=== PATIENT | male | born 1930 | race Caucasian/White ===

== ENCOUNTER 2016-12-06 19:42 | Inpatient (IN) | payer MEDICARE, OTHER ==
[~2016-12-06] VITALS: Ht 188 cm; Wt 98.2 kg
[~2016-12-06 19:42] MED LIST: ATENOLOL50 MG PO; ATROPINE 0.01%-10 ML OS; AZATHIOPRINE50 MG PO; CALCITRIOL0.5 MCG PO; CEPHALEXIN500 MG PO; CIPROFLOXACIN250 MG PO; CYANOCOBAL1000 MCG/M PO; DOXYCYCLINE HY100 MG PO; FLOMAX0.4 MG PO; FLONASE2 SPRAY; GABAPENTIN300 MG PO; GLIPIZIDE XL5 MG PO; GLIPIZIDE5 MG PO; HYDROCHLOROTHIA25 MG PO; ICAPS MV TABLE1 EACH PO; IMURAN50 MG PO; KEFLEX500 MG PO; LEVOFLOXACIN500 MG PO; LEVOTHROID125 MCG PO; LEVOXYL125 MCG PO; LISINOPRIL10 MG PO; LISINOPRIL20 MG PO; MECLIZINE HCL25 MG PO; MESTINON60 MG PO; METFORMIN HCL500 MG PO; PREDNISONE10 MG PO; PROSCAR5 MG PO; PROVENTIL HFA6.7 GM INH; RANITIDINE15 MG/1 ML PO; SIMVASTATIN40 MG PO; SIMVASTATIN80 MG PO; TRAVATAN 0.0042.5 ML OP; VITAMIN B-12250 MCG PO; VITAMIN D1000 UNIT PO; WARFARIN SODIUM5 MG PO
--- NOTE | 2016-12-06 22:30 | NUR ---
PT ARRIVED TO DEPARTMENT VIA STRETCHER FROM E.D. WITH AT BEDSIDE. PT TRANSFERRED FROM STRETCHER TO BED WITH TRANSFER SHEET. PT TOLERATED TRANSFER WELL. PT ALERT AND ORIENTED AT THIS TIME, ANSWERING QUESTIONS APPROPRIATELY, COOPERATIVE AND PLEASANT. HISTORY AND ASSESSMENTS DONE, TO HELP WITH PT MEDICAL HX. PT HAS GLAUCOMA, BLIND IN LEFT EYE, PUPIL DILATED. PT HAS COLOSTOMY, BURPED, MINIMAL SOFT BROWN STOOL. PT HAS DECUB TO COCCYX, ALLEVYN DRESSING INTACT, NO DRAINAGE NOTED. PT [place], HEARING AIDS AT HOME PER . PT HAS UPPER AND LOWER DENTURES, ALSO AT HOME PER . PT EATING BOXED LUNCH, TOLERATING PO WELL. IV FLUIDS INITIATED, IV SITE PATENT AND INTACT, INFUSING WITHOUT DIFFICULTY. 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 PT DENIES ANY N/V, SOB AT THIS TIME. PT C/O CHRONIC BILATERAL SHOULDER PAIN, STATES HE HAS BILATERAL TORN ROTATOR CUFF AND IS BEING FOLLOWED BY DR JOSE. 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 EDUCATED PT ON GETTING OUT BED, USING CALL LIGHT APPROPRIATELY, PT VERBALIZED UNDERSTANDING. CALL LIGHT WITHIN REACH. PT DENIES ANY FURTHER NEEDS AT THIS TIME.
--- NOTE | 2016-12-07 00:05 | NUR ---
PT SLEEPING, RR EVEN AND UNLABORED. PT APPEARS COMFORTABLE AT THIS TIME. CALL LIGHT WITHIN REACH.
--- NOTE | 2016-12-07 03:15 | NUR ---
PT ATTEMPTING TO VOID IN URINAL, UNSUCCESSFUL. PT STATES "I SOMETIMES HAVE A HARD TIME, I FEEL LIKE I REALLY NEED TO GO AND THEN NOTHING HAPPENS". PT STATES DIFFICULTY VOIDING IS NOT A NEW ISSUE. WILL CONTINUE TO MONITOR AND ENCOURAGE VOIDING. PT USING CALL LIGHT APPROPRIATELY. IV FLUIDS INFUSING WITHOUT DIFFICULTY. CALL LIGHT WITHIN REACH. PT DENIES ANY FURTHER NEEDS AT THIS TIME.
--- NOTE | 2016-12-07 06:04 | NUR ---
PT ATTEMPTED TO VOID IN URINAL, MISSED, INCONTINENT. CHANGED ATTENDS AND LINENS. PT C/O SHOULDER PAIN, TYLENOL GIVEN. CHANGED COLOSTOMY BAG. CALL LIGHT WITHIN REACH. PT DENIES ANY FURTHER NEEDS AT THIS TIME.
--- NOTE | 2016-12-07 07:42 | EKG ---
[facility] [address] [place], [place] [address] Signed Normal sinus rhythm Left axis deviation Abnormal ECG No previous ECGs available Confirmed by VERONA RIVERA MD ([id number]) on 12/07/2016 7:41:55 AM Electronically Signed By: VERONA RIVERA MD 12/07/16 0742 PATIENT NAME: FRANK ORTEZ SR Electrocardiogram DATE OF : 34 PHYSICIAN: VERONA RIVERA MD REPORT #: [id number] REPORT IS CONFIDENTIAL AND NOT TO BE RELEASED WITHOUT AUTHORIZATION
--- NOTE | 2016-12-07 08:15 | NUR ---
PT RESTING IN BED WITH EYES CLOSED UPON ENTERING ROOM, AWOKE EASILY TO VOICE. PT ALERT AND ORIENTED BUT FORGETFUL, [place]. PT REPOSITIONED IN BED, BREAKFAST TRAY SET UP, PT EATING INDEPENDENTLY. AT BEDSIDE. PT REPORTING PAIN OF SHOULDERS BILATERALLY, CHRONIC PAIN D/T ROTATOR CUFF TEAR. PAIN INCREASED WITH MOVEMENT. CALL LIGHT WITHIN REACH.
--- NOTE | 2016-12-07 09:20 | NUR ---
REASSESSED MENTATION. PT ORIENTED TO SELF, YEAR, AND SITUATION. UNABLE TO STATE DATE, OR PLACE. STATES THIS IS NOT NORMAL FOR PT.
--- NOTE | 2016-12-07 12:00 | NUR ---
PT SITTING UP IN BED EATING LUNCH INDEPENDENTLY. MENTATION REMAINS UNCHANGED WITH LAST ASSESSMENT. REMAINS ORIENTED TO SELF, FAMILY, AND SITUATION. AT BEDSIDE.
--- NOTE | 2016-12-07 14:41 | NUR ---
PT UP TO RECLINER WITH P.T., BRIAN WELL. MEDICATED WITH PO TYLENOL FOR CHRONIC SHOULDER PAIN. AT BEDSIDE. CALL LIGHT WITHIN REACH.
--- NOTE | 2016-12-07 15:35 | NUR ---
PT STATED THAT PT ATTEMPTED TO GET OUT OF CHAIR INDEPENDENTLY. PT STATES THAT HE WANTS TO GO BACK TO BED. PT 2 PERSON ASSIST, ABLE TO STAND AND PIVOT TRANSFER TO BED. PT PLACED IN POSITION OF COMFORT, DENIES FURTHER NEEDS OR CONCERNS. CALL LIGHT WITHIN REACH. AT BEDSIDE, BED ALARM ON.
--- NOTE | 2016-12-07 15:57 | NUR ---
MED REC COMPLETE WITH PATIENT'S WHO HAS A CURRENT MEDICATION LIST. PATIENT WAS RECENTLY TAKEN OFF SEVERAL MEDICATIONS INCLUIDNG ATENOLOL AND HCTZ.
--- NOTE | 2016-12-07 17:40 | NUR ---
shaved patients face. jerson care done. patient sittin straight up in bed eating dinner with family by his side. no other needs at this time.
--- NOTE | 2016-12-07 17:45 | NUR ---
PT SITTING UP IN BED AKAKE. ATE DINNER INDEPENDENTLY. DENIES NEEDS OR CONCERNS. BED ALARM ON.
--- NOTE | 2016-12-07 19:10 | NUR ---
BEDSIDE SHIFT REPORT RECEIVED FROM ROBERTO ALARCON. PT IS RESTING IN BED WITH EYES CLOSED. RA. IV INFUSING WNL. CALL LIGHT IS WITHIN REACH. DENIES NEEDS AT THIS TIME.
--- NOTE | 2016-12-07 21:20 | NUR ---
ASSESSMENT COMPLETED. PT IS ALERT AND ORIENTED X4 AT THIS TIME. REPORTS 7/10 PAIN IN BILATERAL SHOULDERS, 2 TABS TYLENOL PROVIDED. DENIES NAUSEA. LUNGS CLEAR, RA. HR REGULAR. BOWEL TONES ACTIVE. COLOSTOMY TO LLQ, APPLIANCE INTACT, DRAINING SOFT BROWN STOOL. PT HAD URINAL IN PLACE, INCONTINENT. ATTENDS CHANGED, BARRIER CREAM APPLIED TO GROIN. REDDENED AREA TO COCCYX, OPEN TO AIR. IV PATENT, INFSUING WNL. PT IS BLIND IN LEFT EYE, LEFT PUPILS IS PERMANENTLY DILATED/NON-REACTIVE. LEFT ARM IS RESTRICTED D/T FISTULA. DENIES NEEDS AT THIS TIME, CALL LIGHT IS WITHIN REACH.
--- NOTE | 2016-12-08 00:46 | NUR ---
PT INCONTINENT OF URINE, NEW ATTENDS IN PLACE, DANIELLE-CARE PROVIDED. PT DENIES FURTHER REQUESTS.
--- NOTE | 2016-12-08 02:30 | NUR ---
PT CALLED AND REQUESTED TO USE URINAL, HAD BEEN INCONTINENT OF URINE. ASSESSMENT COMPLETED. PT DENIES PAIN AND NAUSEA AT THIS TIME. NO CHANGES FROM PREVIOUS ASSESSMENT. NEW ATTENDS IN PLACE. NEW IVF STARTED, IV PATENT. ASSESSED FISTULA, AUSCULTATED BRUIT AND PALPATED THRILL, WNL. PT DENIES FURTHER REQUESTS AT THIS TIME, CALL LIGHT IS WITHIN REACH.
--- NOTE | 2016-12-08 04:27 | NUR ---
PT CURRRENTLY SLEEPING, NO APPARENT DISTRESS. RESPIRATIONS EVEN AND UNLABORED. WILL CONTINUE TO MONITOR.
--- NOTE | 2016-12-08 05:06 | NUR ---
PT SLEPT ON AND OFF. ORIENTED WHEN AWAKE. TYLENOL GIVEN ONCE FOR CHRONIC SHOULDER PAIN. NO NAUSEA. LUNGS CLEAR, RA. HR REGULAR. BOWEL TONES ACITVE, COLOSTOMY DRAINING SOFT BROWN STOOL, APPLIANCE INTACT. INCONTINENT OF URINE, ATTENDS IN PLACE. PRESSURE ULCER TO COCCYX, OPEN TO AIR. PT FREQUENTLY REPOSITIONS SELF IN BED. LEFT ARM RESTRICTED: FISTULA. ACCUCHECKS AND SLIDING SCALE. 1-2PA, PIVOT TRANSFER, WHEELCHAIR BOUND AT HOME.
--- NOTE | 2016-12-08 05:53 | NUR ---
PT UP TO CHAIR WITH 2-PA AND PIVOT TRANSER. NEW ATTENDS AND CLEAN LINENS PROVIDED. CALL LIGHT IS WITHIN REACH. CHAIR ALARM IS ON FOR SAFETY.
--- NOTE | 2016-12-08 09:49 | NUR ---
PT UP IN CHAIR AWAKE AT SHIFT CHANGE, NON-PARTICIPATORY BUT FRIENDLY AND APPROPRIATE. PT DENIES NEEDS OR DISCOMFORTS AT THAT TIME, CHAIR ALARM IN PLACE CALL LIGHT IN LAP. PT TOLERATES 100% OF BREAKFAST AND CONTINUES IN CHAIR. UP TO SHOWER THEN RETURNS TO CHAIR, WELL TOLERATED
--- NOTE | 2016-12-08 14:02 | NUR ---
PT ASSISTED TO CHANGE COLOSTOMY BAG, REMAINS UP IN CHAIR, IS PRESENT. PT TOLERATES SHOWER EARLIER IN THE SHIFT THEN RETURNS TO THE CHAIR. HAS A HALF SANDWICH FOR LUNCH THEN AGREES TO LAY DOWN FOR A NAP. PT RESTING SOUNDLY AT THIS TIME
--- NOTE | 2016-12-08 17:28 | NUR ---
PT RESTS IN BED FOR A TIME REPORTS A GOOD NAP. UP TO THE CHAIR FOR EVENING MEAL, IS PRESENT AND EATS WITH HIM. CALL LIGHT IN LAP, CHAIR ALARM IN PLACE
--- NOTE | 2016-12-08 18:29 | NUR ---
Before getting up into the chair me and another blueberry grower helped me change them.
--- NOTE | 2016-12-08 19:46 | NUR ---
RECEIVED REPORT FROM DAY SHIFT RN. PATIENT IS RESTING IN BED WITH EYES CLOSED, RR 17
--- NOTE | 2016-12-08 20:58 | NUR ---
PATIENT ASSESMENT COMPLETED. PATIENTS EVENING MEDICATIONS GIVEN PER ORDER. PATIENT COMPLAINS OF PAIN IN HS SHOULDERS AND RATES IT AT A 3/10. PATIENT GIVEN PRN TYLENOL PER ORDER. PATIENTS BS TAKEN AND RECORDED. PATIENT DID NOT REQUIRE SS INSULIN, BS WNL. PATIENT ALSO RECEIVED A NEW IV, PATIENT TOLERATED IT WELL. PATIENT REPOSITIONED IN BED. PATIENTS BLOOD PRESSURE WAS ALSO OUT OF NORMAL RANGE. PLACED A CALL TO HOSPITALIST. NEW ORDER PLACED BY HOSPITALIST. PATIENT GIVEN BLOOD PRESSSURE MEDICATION PER ORDER. PATIENT DENIES ANY FURTHER NEEDS AT THIS TIME. CALL LIGHT IS WITHIN REACH.
--- NOTE | 2016-12-09 00:07 | NUR ---
PATIENT HAD A BOUT OF INCONTINENCE. PATIENT ASSISTED TO THE RECLINER. PATIENT IS A 2PA W/WALKER. COORDINATION IS DIFFICULT FOR PATIENT. PATIENTS BEDDING CHANGED, ATTEND CHANGED, AND DANIELLE CARE PERFORMED. PATIENT IS NOW BACK IN BED RESTING. PATIENTS COLOSTOMY EMPTIED. PATIENT DENIES ANY FURTHER NEEDS. CALL LIGHT IS WITHIN REACH.
--- NOTE | 2016-12-09 02:16 | NUR ---
PATIENT REPOSITIONED. PATIENT DENIES ANY PAIN OR NEEDS AT THIS TIME. CALL LIGHT IS WITHIN REACH.
--- NOTE | 2016-12-09 03:43 | NUR ---
PATIENT RESTING IN BED WITH EYES CLOSED, RR 16
--- NOTE | 2016-12-09 05:07 | NUR ---
PATIENT RESTED WELL THROUGHOUT THE SHIFT. PATIENT RECEIVED TYLENOL X1 FORA PAIN IN BOTH SHOULDERS. PATIENT HAD AN EPISODE OF HIGH BLOOD PRESURE, GAVE A ONE TIME DOSE BP MEDICATION PER MD ORDER. PATIENT IS ON AN ADA DIET W/1800 CALORIE. PATIENT HAS NO DENTURES AT THIS TIME, THEREFORE PATIENT IS TOLERATING SOFT FOODS. PATIENT HAS A COLOSTOMY, AND IT WAS CLEANED NEEDED. PATIENT USES URINAL AND IS INCONTINENT AT TIMES, ATTEND IN PLACE. PATIENT RECEIVED A NEW IV IN HIS RIGHT FOREARM. PATIENT IS FORGETFUL AT TIMES. PATIENT DOES CALL APPROPRIATELY.
--- NOTE | 2016-12-09 06:54 | NUR ---
PATIENTS ATTEND CHANGED AND DANIELLE CARE PERFORMED. PATIENTS COLOSTOMY EMPTIED. MORNING MEDICATIONS GIVEN PER ORDER.
--- NOTE | 2016-12-09 09:39 | NUR ---
PT ASSISTED UP OUT OF BED TO CHAIR AFTER SHIFT CHANGE. PT DOES OWN ORAL CARE WARM WET CLOTH PROVIDED FOR HANDS AND FACE. PT TOLERATES BREAKFAST WELL IS PRESENT IN THE ROOM. PT C/O SHOULDER PAIN TYLENOL PROVIDED WITH BREAKFAST. CALL LIGHT IN HAND CHAIR ALARM IN PLACE
--- NOTE | 2016-12-09 10:35 | NUR ---
DR RIVERA IN TO SEE PT, PRESENT. QUESTIONS ASKED AND ANSWERED PLANS FOR DC DISCUSSED. PT RETURNS TO BED TO REST ALARM IS SET CALL LIGHT IN LAP
--- NOTE | 2016-12-09 13:41 | NUR ---
PT UP FOR LUNCH EATS 100%.
--- NOTE | 2016-12-09 13:55 | NUR ---
PT WAS SITTING IN CHAIR, HAD JUST FINISHED LUNCHED. HE SEEMED TO LIKE HIS LUNCH. I JOKED THAT HIS TASTER WAS STILL WORKING-YES, BUT MY ARMS AREN'T! HE SAID WITH A SLY LITLE SMILE. GOOD VISIT, EXTENDED A BLESSING. FOLLOW NEEDED
--- NOTE | 2016-12-09 16:25 | NUR ---
ROUTINE MEDS GIVEN EARLIER. TYLENOL 650 MG PO GIVEN FOR GENERAL PAIN.
--- NOTE | 2016-12-09 19:00 | NUR ---
RECEIVED REPORT. PT IS IN BED SLEEPING AT THIS TIME.
--- NOTE | 2016-12-09 22:00 | NUR ---
PT HAD TO BE CHANGED DUE TO INCONT. URINARY EPISODE. PT BG WAS 172 AND RECEIVED 1 UNIT OF NOVOLOG FOR IT. ALL LEFT LOBES ARE CLEAR, RIGHT UPPER AND LOWER LOBE HAD CRACKLES., RML WAS CLEAR. V/S ARE WNL AT THIS TIME. PT SEEMS STILL WEAK AT THIS TIME. NO CHANGE IN STATUS FOR THIS PT.
--- NOTE | 2016-12-10 00:38 | NUR ---
PT IS SLEEPING AT THIS TIME.
--- NOTE | 2016-12-10 04:04 | NUR ---
PT IS SLEEPING AT THIS TIME.
--- NOTE | 2016-12-10 05:45 | NUR ---
PT HAS BEEN SLEEPING ALL NIGHT. HAD TO CHANGE PT DUE TO URINARY INCONT. X2. bg WAS 172 AND PT RECEIVED 1 UNIT OF NOVOLOG INSULIN. NO NEW ISSUES NOTED THIS SHIFT.
--- NOTE | 2016-12-10 07:00 | NUR ---
REPORT RECEIVED FROM JONN, PATIENT STILL RESTING IN BED, NO NEEDS OR PAIN AT THIS TIME. RAILS UP X4 AND BED ALARM ON.
--- NOTE | 2016-12-10 08:30 | NUR ---
PATIENT MOVED UP IN BED AND AM MEDICATION GIVEN TO HIM, PATIENT IS ALERT AND ORIENTED AT THIS TIME. PATIENT IV IN THE RIGHT ARM DC'D TIP INTACT NO REDDNESS OR SWELLING NOTED.
--- NOTE | 2016-12-10 09:26 | NUR ---
PT IS DRESSED AND LYING IN BED SAFELY WITH CALL LIGHT IN REACH WAITNING TO BE DISCHARGED TO [facility].
--- NOTE | 2016-12-10 10:01 | NUR ---
REPORT CALLED TO JAHAIRA AT [facility] AT THIS TIME, PATIENT DRESSED AND IN A WHEELCHAIR FOR TRANSFER TO FACILITY. PATIENT TOLERATED WELL.
== END 2016-12-10 10:00 | DRG 690 ==
LOC: ED 19:42 → MS 19:43
PROVIDERS: ADMIT Internal Medicine
DX: N39.0 Urinary tract infection, site not specified (principal); R53.1 Weakness; Z79.4 Long term (current) use of insulin; Z86.711 Personal history of pulmonary embolism; Z79.01 Long term (current) use of anticoagulants; R01.1 Cardiac murmur, unspecified; E11.22 Type 2 diabetes mellitus with diabetic chronic kidney disease; N18.9 Chronic kidney disease, unspecified; Z93.3 Colostomy status; I12.9 Hypertensive chronic kidney disease with stage 1 through stage 4 chronic kidney disease, or unspecified chronic kidney disease
CPT/HCPCS: 36415; 71010; 80048; 80053; 81001; 83735; 84100; 84484; 85025; 85610; 87077; 87088; 87181; 87184; 93005; 93010; 97110; 97161; 97530; G0480; J0696; J7030

== ENCOUNTER 2017-06-08 15:13 | Inpatient (IN) | payer MEDICARE, OTHER ==
[~2017-06-08] VITALS: Ht 190.5 cm; Wt 85.7 kg
--- OUTSIDE RECORDS SUMMARY | ~2017-06-08 | XMS | Clinical Summary ---
Demographics + + + | Address | [address] | | | [place] [address] | + + + | Home Phone | | + + + | Preferred Language | Unknown | + + + | Marital Status | Single | + + + | Roman Catholic Affiliation | Unknown | + + + | Race | Unknown | + + + | Ethnic Group | Other Race | + + + Author + + + | Author | [facility] | + + + | Organization | [facility] | + + + | Address | Unknown | + + + | Phone | Unavailable | + + + Care Team Providers + +------+ + | Care Advertising Operations Coordinator Name | Role | Phone | + +------+ + | No Pcp Per Patient | PP | Unavailable | + +------+ + Source Comments J[facility] and [facility]Patient.[facility] Allergies Not on File Current Medications + [...]
[2017-06-08] MEDS ORDERED: ATENOLOL50 MG PO (15:23)
[2017-06-08] MEDS ORDERED: COUMADIN2.5 MG PO (15:28)
--- OUTSIDE RECORDS SUMMARY | 2017-06-08 18:13 | XMS | Clinical Summary ---
Demographics + + + | Address | [address] | | | [place] [address] | + + + | Home Phone | | + + + | Preferred Language | Unknown | + + + | Marital Status | Single | + + + | Congregation Affiliation | Unknown | + + + | Race | Unknown | + + + | Ethnic Group | Other Race | + + + Author + + + | Author | [facility] | + + + | Organization | [facility] | + + + | Address | Unknown | + + + | Phone | Unavailable | + + + Care Team Providers + +------+ + | Care Shake Cutter Name | Role | Phone | + +------+ + | No Pcp Per Patient | PP | Unavailable | + +------+ + Source Comments JOSÉ LUIS is fully live on both [facility] and [facility] Allergies Not on File Current Medications + + +-------+---------+------+------+-------+ | Prescription | Sig. | Disp. | Refills | Star | End | Statu | | | | | | t | Date | s | | | | | | Date | | | + + +-------+---------+------+------+-------+ | atenolol 50 mg | Take 50 mg by mouth | | | | | Activ | | oral tablet | once daily at | | | | | e | | | bedtime. | | | | | | + + +-------+---------+------+------+-------+ | glipiZIDE ER 5 mg | Take 5 mg by mouth | | | | | Activ | | oral tablet extended | two times daily. | | | | | e | | release 24hr | | | | | | | + + +-------+---------+------+------+-------+ | | Take 25 mg by mouth | | | | | Activ | | hydrochlorothiazide | once daily. | | | | | e | | 25 mg oral tablet | | | | | | | + + +-------+---------+------+------+-------+ | LEVOTHYROXINE | Take 125 mcg by | | | | | Activ | | SODIUM (LEVOTHROID | mouth once daily. | | | | | e | | ORAL) | | | | | | | + + +-------+---------+------+------+-------+ | lisinopril 20 mg | Take 20 mg by mouth | | | | | Activ | | oral tablet | once daily. | | | | | e | + + +-------+---------+------+------+-------+ | metFORMIN 500 mg | Take 500 mg by mouth | | | | | Activ | | oral tablet | two times daily. | | | | | e | + + +-------+---------+------+------+-------+ | MULTIVITAMIN ORAL | Take by mouth two | | | | | Activ | | | times daily. | | | | | e | + + +-------+---------+------+------+-------+ | pyridostigmine 60 | Take 120 mg by mouth | | | | | Activ | | mg oral tablet | three times daily. | | | | | e | + + +-------+---------+------+------+-------+ | simvastatin 80 mg | Take 80 mg by mouth | | | | | Activ | | oral tablet | once daily in the | | | | | e | | | evening. | | | | | | + + +-------+---------+------+------+-------+ | WARFARIN SODIUM | 2.5MG or 5MG as | | | | | Activ | | (WARFARIN ORAL) | directed at bedtime. | | | | | e | + + +-------+---------+------+------+-------+ | TRAVOPROST OPHT | Instill 1 drop in | | | | | Activ | | | eye once daily at | | | | | e | | | bedtime. | | | | | | + + +-------+---------+------+------+-------+ Active Problems + + + | Problem | Noted Date | + + + | Peripheral neuropathy (HCC) | 07/18/2013 | + + + Social History + +-------+ +--------+------+ | Tobacco Use | Types | Packs/Day | Years | Date | | | | | Used | | + +-------+ +--------+------+ | Former Smoker | | | | | + +-------+ +--------+------+ + +---+---+---+ | Smokeless Tobacco: | | | | | Never Used | | | | + +---+---+---+ + + +---------+ + | Alcohol Use | Drinks/We | oz/Week | Comments | | | ek | | | + + +---------+ + | No | | | | + + +---------+ + + + + | Sex Assigned at | Date Recorded | | | | + + + | Not on file | | + + + Last Filed Vital Signs + + + + | Vital Sign | Reading | Time Taken | + + + + | Blood Pressure | 141/69 | 07/03/2013 2:11 PM PST | + + + + | Pulse | 66 | 07/03/2013 2:11 PM PST | + + + + | Temperature | - | - | + + + + | Respiratory Rate | - | - | + + + + | Oxygen Saturation | - | - | + + + + | Inhaled Oxygen | - | - | | Concentration | | | + + + + | Weight | 100.7 kg (222 lb) | 07/03/2013 2:11 PM PST | + + + + | Height | 190.5 cm (6' 3") | 07/03/2013 2:11 PM PST | + + + + | Body Mass Index | 27.75 | 07/03/2013 2:11 PM PST | + + + + Plan of Treatment + + + + + | Health Maintenance | Due Date | Last Done | Comments | + + + + + | INFLUENZA VACCINE | | | | | (FLU SHOT) | 7 | | | + + + + + Results Not on filefrom Last 3 Months
--- NOTE | 2017-06-08 21:37 | NUR ---
191 - PT ADMITTED TO ROOM 121 VIA STRETCHER FROM ER, PT ACOMPANIED BY . PT HX DEMENTIA, UTI AND PNEUMONIA. PT ON ROOM AIR, 2099 - PT ON ROOM AIR, DENIES C/O PAIN. COLOSTOMY LEFT SIDE PATENT. PT WEARS ATTENS HAS NENITA AREA BUTTOCKS, MULTIPLE BRUISING ON HANDS, RIGHT ELBOW, LOWER LEFT ARMS, AND LOWER EXTREMITITES IN DIFFERENT STAGES OF HEALING. NOT OPEN. RT HERE EARLIER IN ROOM EXPLAINING TO PT ABOUT HIS I.S. AND ACAPELLA USAGE. PT COOPERATIVE WITH ASSESSMENT, MEDS UPDATED PER WIFES WRITTEN MED ORDERS, EXPLAINED TO ABOUT WHY VITAMIS WHERE NOT ORDERED BY MD AT THIS TIME AND HOW MD WOULD REASSESS. WOULD LIKE FLOMAX TO BE GIVEN TONIGHT INSTEAD OF AM THIS IS WHAT SHE DOES AT HOME.
--- NOTE | 2017-06-09 00:15 | NUR ---
PATIENT ASSESSMENT COMPLETE. PATIENT IS AAOX4. LUNG SOUNDS ARE CLEAR IN THE UPPER LOBES BILATERALLY, DIMINISHED IN THE BASES. O2 SAT >95% ON RA. ABD IS MILDLY DISTENDED AND NONTENDER. BOWEL SOUNDS ACTIVE. COLOSTOMY IN PLACE ON LLQ, BAG CHANGED. CMS IS INTACT. PATIENT IS WEAK BUT ABLE TO MOVE HIMSELF UP IN THE BED AND ROLL WITHOUT ASSISTANCE. IV FLUIDS INFUSING PER ORDERS, SITE WNL. PATIENT WAS INCONTINENT OF URINE. ATTEND CHANGED. PATIENT'S COCCYX IS RED, SKIN INTACT. BARRIER CREAM APPLIED. PATIENT POSITIONED ONTO HIS RIGHT SIDE. PATIENT DENIES PAIN OR NAUSEA. CALL LIGHT IN REACH.
--- NOTE | 2017-06-09 01:32 | NUR ---
PATIENT RESTING. EYES CLOSED. RR 18. CALL LIGHT IN REACH.
--- NOTE | 2017-06-09 02:11 | NUR ---
VITALS AND I&OS DONE. PT SAYS HE WILL CALL IF HE NEEDS ANYTHING. CALL LIGHT AND BEDSIDE TABLE WITHIN REACH.
--- NOTE | 2017-06-09 05:15 | NUR ---
PATIENT RESTING IN BED. IV FLUIDS INFUSING, SITE WNL. PATIENT IS AAOX3. DENIES PAIN AT THIS TIME. ATTENDS IS DRY. CALL LIGHT IN REACH. NO NEEDS AT THIS TIME.
--- NOTE | 2017-06-09 05:31 | NUR ---
PATIENT SLEPT ON AND OFF SINCE ARRIVING TO THE FLOOR. HE IS AAOX3. ON ROOM AIR. IV FLUIDS INFUSING, SITE WNL. COLOSTOMY LLQ. TURN Q2H, RED AREA ON COCCYX. INCONTINENT AT TIMES, ATTENDS IN PLACE. PATIENT IS STAND PIVOT W/FWW AT HOME, HAS NOT BEEN OUT OF BED SINCE BEING ADMITTED.
--- NOTE | 2017-06-09 07:05 | NUR ---
BEDSIDE HANDOFF REPORT RECEIVED FROM MOTORIZED SQUAD SERGEANT RN. PT RESTING IN BED. PT DENIES OTHER NEEDS AT THIS TIME.
--- NOTE | 2017-06-09 08:06 | NUR ---
PT INCONTINENT OF URINE, PERICARE PERFORMED, BARRIER CREAM APPLIED. PT ASSISTED TO CHAIR, STAND PIVOT WITH 2 PERSON ASSIST. PT EATING BREAKFAST. PT DENIES OTHER NEEDS AT THIS TIME.
--- NOTE | 2017-06-09 09:55 | NUR ---
PT WITHOU IV ACCESS, DIFFICULT START, BRAID MAKER RN TO BEDSIDE TO START IV. PT SITTING IN CHAIR. PT ON ROOM AIR, LUNG SOUNDS CLEAR. BOWEL TONES ACTIVE, DENIES NAUSEA, TOLERATING ADA DIET. PT WITHOUT EDEMA, CMS INATCT. PT CONTINUES TO HAVE SLIGHLY ALTERED MENTAL STATUS, ALERT AND ORIENTED BUT IS DESCRIBING EVENTS FROM LAST NIGHT THAT DID NOT HAPPEN. PT DENIES NEEDS AT THIS TIME. DISCUSSED PLAN OF CARE WITH PT AND . PLAN TO GET PT TO BED AND STRAIGHT CATH THIS AM.
--- NOTE | 2017-06-09 10:45 | NUR ---
STRAIGHT CATH PER ORDER. STRAIGHT CATH FOR 200 ML OF CLOUDY YELLOW URINE. URINE SAMPLE SENT TO LAB. PT RESTING IN BED. IV STARTED TO RIGH AC 22 G, IV FLUIDS INFUSING. PT DENIES NEEDS AT THIS TIME.
--- NOTE | 2017-06-09 11:55 | NUR ---
TALKED WITH PT REGARDING HER GOALS FOR THE PT. SHE WOULD LIKE TO TAKE HIM HOME, BUT SHE SAYS WE ARE UNABLE TO CATH PT AND NEED A CAREGIVER THAT CAN ST CATH HIM BID. SHE ASKED ABOUT HOME HEALTH AND I INFORMED HER THAT HOME HEALTH CANNOT COME THAT OFTEN, BUT CAN COME AND DO TEACHING ETC, POSS A BATH AID ETC. WE ALSO TALKED ABOUT THE POSSIBILITY OF HIM GOING TO A SNF FOR A WHILE TO RECONDITION FROM HIS HOSPITALIZATION. SHE SAID IF IT WERE FOR A LIMITED TIME SHE WOULD BE OK WITH THAT. WE ALSO TALKED ABOUT WHAT [facility] COU[facility] HIM[facility]HER, I TOLD HER I WOULD CALL AND TALK WITH THEM AND SEE WHAT WE COULD COME UP WITH (CALLED THE [facility] OUTPT WORKER MESSAGE LEFT). I SUGGESTED PER INFO FROM HER DAUGHTER THAT SHE CONTACT DEPARTMENT OF HUMAN SERVICES REGARDING A LIST OF POSS CAREGIVERS AND TO GET THE [place] FOR MEDICAID STARTED IF THEY THINK THEY ARE GOING TO NEED THAT. I TOLD HER AFTER I SPEAK WITH THE [facility] I WILL GET BACK TO HER.
[2017-06-09] MEDS ORDERED: ASPIR-LOW81 MG PO (12:03)
[2017-06-09] MEDS ORDERED: PROSCAR5 MG PO (12:05)
--- NOTE | 2017-06-09 12:15 | NUR ---
PT ASSISTED TO CHAIR FOR LUNCH, 2 PERSON STAND PIVOT. PT ON ROOM AIR, LUNG SOUNDS CLEAR, OCCASIONAL NONPRODUCTIVE COUGH. BOWEL TONES ACTIVE, DENIES NAUSEA. CMS INTACT, WITHOUT EDEMA. PT DENIES NEEDS AT THIS TIME.
--- NOTE | 2017-06-09 16:30 | NUR ---
STRAIGHT CATH PERFORMED PER ORDER FOR URINARY RETENTION, PT TOLERATED WELL. DRAINED 150 ML OF CLOUDY URINE. PERICARE PERFORMED. PT ON ROOM AIR, LUNG SOUNDS CLEAR, SPUTUM SAMPLE COLLECTED. NO ACUTE CHANGES. PT RESTING IN BED. AT BEDSIDE.
--- NOTE | 2017-06-09 18:25 | NUR ---
PT CONTINUES TO BE SLIGHLY CONFUSED. PT ON ROOM AIR, LUNG SOUNDS CLEAR. PT UP TO CHAIR FOR MEALS, TOLERATING ADA DIET, NO SS INSULIN GIVEN. ORDER TO STRAIGHT CATH TID, INCONTINENT, BARRIER CREAM AND ATTENDS. PT UP WITH 2PA TO CHAIR, STAND PIVOT. IV STARTED IN RIGHT AC, INFUSING LR AT 125 ML/HR, IV ROCEPHIN AND AZITHROMYCIN.
--- NOTE | 2017-06-09 18:59 | NUR ---
COLOSTOMY APPLIANCE LEAKING, APPLIANCE AND BAG CHANGED. STOMA RED IN APPEARANCE, SURROUNDING SKIN INTACT. BARRIER FILM APPLED, APPLIANCE MEASURE AND CUT TO FIT STOMA. PT RESTING IN BED. PERICARE AND BARRIER CREAM APPLIED. PT DENIES OTHER NEEDS AT THIS TIME.
--- NOTE | 2017-06-09 19:20 | NUR ---
BEDSIDE REPORT RECEIVED FROM ROBERTO HER. PT LYING IN BED, AWAKE, LR INFUSING AT 125 WNL. PT HAS NO REQUESTS AT THIS TIME, DENTURES OUT. CALL LIGHT IN REACH.
--- NOTE | 2017-06-09 20:07 | NUR ---
VERBAL ORDER FROM DR. ROME TO SLOW IVF TO 60 ML/HR. FLUIDS NOW INFUSING WNL AT 60 ML/HR. PT LYING IN BED AWAKE, VERBALIZED UNDERSTANDING. CALL LIGHT IN REACH.
--- NOTE | 2017-06-09 21:30 | NUR ---
PT SLEEPING AT THIS TIME, BREATHING NON-LABORED ON ROOM AIR, IVF INFUSING. WILL CONTINUE TO MONITOR.
--- NOTE | 2017-06-09 22:20 | NUR ---
PT ASSESSMENT COMPLETE. DRAINED 450 ML CLEAR YELLOW URINE WITH STRAIGHT CATHETER INSERTION, STERILE TECHNIQUE MAINTAINED, LIDOCAINE USED, PT TOLERATED WELL. PTS LUNGS SOUND CLEAR, FINE CRACKLES NOTED IN LLL ON AUSCULTATION, ENCOURAGED PT TO USE IS, DEMONSTRATED USE. PT CONTINUES TO COUGH, ENCOURAGED PO FLUIDS. COLOSTOMY IN PLACE, ASSESSED, DOES NOT NEED EMPTIED AT THIS TIME. CSM INTACT BILATERALLY UPPER AND LOWER EXTREMITIES. PT IS ALERT, ORIENTED, STATES TO RN "I PUSHED A BUTTON YESTERDAY THERE" WHILE POINTED AT WHITEBOARD DURING RN INSTRUCTION TO USE CALL LIGHT, PT REORIENTED. CALL LIGHT IN REACH.
--- NOTE | 2017-06-09 22:23 | NUR ---
NURSE IN ROOM
--- NOTE | 2017-06-09 23:46 | NUR ---
nurse in room
--- NOTE | 2017-06-09 23:46 | NUR ---
VANCOMYCIN INFUSION COMPLETE. IVF INFSUING WNL AT 60 ML/HR. LIGHTS OFF IN PT ROOM, PT HAS EYES CLOSED, BREATHING NON-LABORED. CALL LIGHT IN REACH.
--- NOTE | 2017-06-10 01:48 | NUR ---
IN PT ROOM TO HANG NEW IV FLUID BAG, PT SLEEPING, COUGHING OCCASIONALLY, BREATHING IS NON-LABORED. LIGHTS OFF IN ROOM. CALL LIGHT NEXT TO PT.
--- NOTE | 2017-06-10 04:19 | NUR ---
PT ASSESSMENT COMPLETE. PTS LUNGS CLEAR THROUGHOUT ALL LOBES, HR REGULAR RHYTHM. CSM INTACT, NO EDEMA NOTED. IVF INFUSING AT 60 ML/HR WNL. BOWEL TONES ACTIVE. OSTOMY BAG ASSESSED, DOES NOT NEED EMPTIED AT THIS TIME. PT HAS NO REQUESTS AT THIS TIME, CALL LIGHT IN REACH.
--- NOTE | 2017-06-10 05:47 | NUR ---
IN PT ROOM IV PUMP BEEPING DUE TO DISTAL OCCLUSION, PT REPORTS DISCOMFORT WITH IV. ASSESSED IV, LINE HAS GOOD BLOOD RETURN, FLUSHES WELL. GAVE PT WARM BLANKET FOR ARM. GAVE PT SIPS OF WATER. PT HAS NO OTHER REQUESTS. CALL LIGHT IN REACH.
--- NOTE | 2017-06-10 05:49 | NUR ---
PT HAS SLEPT FOR MOST OF SHIFT. PT HAD NO INCONTINENT EPISODES THIS SHIFT, STRAIGHT CATHETER REVEALED 450 ML CLEAR YELLOW URINE. PT APPROPRIATE, ORIENTED X 3. IVF DECREASED TO 60 ML/HR, HAS BEEN INFUSING WNL. PT CONTINUES TO HAVE COUGH, LUNGS HAVE SOUNDED CLEAR WITH CRACKLES NOTED IN LLL AT BEGINNNING OF SHIFT.
--- NOTE | 2017-06-10 06:15 | NUR ---
IN PT ROOM TO ADMINISTER THYROID MEDICATION. FINISHING WIRE SAWYER IN ROOM AT THIS TIME.
--- NOTE | 2017-06-10 07:10 | NUR ---
BEDSIDE HANDOFF REPORT RECEIVED FROM PITO PAUL RN. PT SLEEPING LEFT UNDISTURBED. LR INFUSING AT 60 ML/HR.
--- NOTE | 2017-06-10 08:08 | NUR ---
PT INCONTINENT OF LARGE AMOUNT OF URINE. PERICARE PERFORMED. BACK WIPED WITH BATH WIPES, BARRIER CREAM APPLIED. GOWN AND BED LINEN CHANGED. PT ASSISTED TO CHAIR FOR BREAKFAST. IV FLUIDS INFUSING AT 60 ML/HR. PT DENIES OTHER NEEDS AT THIS TIME. DISCUSSED PLAN TO STRAIGHT CATH AFTER BREAKFAST.
--- NOTE | 2017-06-10 09:40 | NUR ---
PT RESTING IN BED. PT DENIES PAIN. LUNG SOUNDS CLEAR, ON ROOM AIR. PT TOLERATING REGULAR DIET, GOOD APPETITE, DENIES NAUSEA. PT WITHOUT EDEMA, CMS INTACT. IV FLUIDS INFUSING AT 60 ML/HR. STRAIGHT CATH PEROFRMED, DIFFICULTY WITH STRAIGHT CATH ON FIRST ATTEMPT, UNABLE TO ADVANCE PASS PROSTATE, SECOND ATTEMPT WIT 14 FR COUDE EASILY ADVANCED, DRAINING FOR 325 ML, ADDITIONAL AMOUNT LEAKED DURING FIRST ATTEMPT. PT DENIES OTHER NEEDS AT THIS TIME. RESTING COMFORTBALY IN BED.
--- NOTE | 2017-06-10 10:41 | NUR ---
PT IS SITTING UP IN CHAIR WITH FEET ELEVATED. PT'S ASKED FOR HIM TO BE SHAVED WILL RETURN TO DO SO
--- NOTE | 2017-06-10 11:05 | NUR ---
PT REQUESTING TYLENOL SHOULD SHOULDER PAIN. RATING PAIN 6/10 TO BOTH SHOULDERS. GIVEN 650 MG PO TYLEON. PT SITTING IN CHAIR. AT BEDSIDE, PROVIDED UPDATE. PT DENIES OTHER NEEDS AT THIS TIME.
--- NOTE | 2017-06-10 12:55 | NUR ---
PT REQUESTING TO RETURN TO BED FROM CHAIR. PT UNABLE TO STAND WITH 2PA, ATTEMPTED 3 TIMES, UNABLE TO SAFELY TRANSFER. FARZAD LIFTED TO BED. PT DENIES NEEDS AT THIS TIME. DISCUSSED PLAN TO SHOWER THIS AFTERNOON.
--- NOTE | 2017-06-10 14:32 | NUR ---
PATEINT WAS IN BED AND WAS IN ROOM, WE DID VTAL SIGNS AND ASKED IF HE NEEDED ANY OTHER ASSISTANCE AND HE NEEDED NOTHING AT THE TIME.
--- NOTE | 2017-06-10 15:30 | NUR ---
PT STRAIGHT CATHED PER ORDER, DRAINED 150 ML OF CLOUDY URINE. PT LUNG SOUNDS CLEAR, ON ROOM AIR. BOWEL TONES ACTIVE, SMALL AMOUNT OF STOOL IN COLOSTOMY BAG. PT ASSISTED WITH SHOWER. PT ASSISTED BACK TO BED. PT DENIES OTHER NEEDS AT THIS TIME.
--- NOTE | 2017-06-10 17:20 | NUR ---
PT ASSISTED TO CHAIR WITH 2 PA TO EAT DINNER. PT DENIES NEEDS AT THIS TIME.
--- NOTE | 2017-06-10 18:07 | NUR ---
PT LESS CONFUSED TODAY. PT ON ROOM AIR, LUNG SOUNDS CLEAR. PT TOLERATING ADA DIET. PT UP TO CHAIR FOR MEALS, WORKED WITH PHYSICAL THERPAY. PT STRAIGHT CATH'ED X2 TODAY, MORNING CATHETER WAS DIFFICULT, REQUIRED COUDE, PT INCONTINENT, BARRIER CREAM. PT 2PA WITH FWW. IV FLUIDS INFUSING AT 60 ML/HR RECEIVED IV ROCEPHIN.
--- NOTE | 2017-06-10 20:22 | NUR ---
INCONTINENT OF URINE, ATTEND CHANGED, PT COOP WITH ASSESSMENT, COLOSTOMY WITH SMALL AMOUNT OF SOFT BM, NO C/O PAIN, WATCHING TV
--- NOTE | 2017-06-10 22:20 | NUR ---
procedure explained, coop. pt straight cath as per orders, inmediate 325cc clear urine drained, attends changed as he was also incontinent of urine.
--- NOTE | 2017-06-10 22:38 | NUR ---
RN MOIZ NOTIFIED RE V/S.
--- NOTE | 2017-06-11 01:06 | NUR ---
AWAKE, HELPS WITH TURNING, INCONTINENT OF URINE, ATTENS CHANGED, PT VERY HELPUL. USES TRAPEZE TO HELP. NO CHANGES IN CONDITION, NO C/O PAIN, PLEASANTLY CONFUSED TO PLACE. REORIENTED
--- NOTE | 2017-06-11 06:05 | NUR ---
Pt has slept most of this shift, easily redirectable, no s/sx pain or discomfort. Got straight cath with inmediate drainage of 350cc clear yellow urine. Pt is also incontinent of large amounts of urine, attends changed 3x this shift. Colostomy with small amount of soft bm. No resp distress, light ocassional dry, non productive cough present. IV infusing w/o problems, No adverse reaction to abx.
--- NOTE | 2017-06-11 07:05 | NUR ---
BEDSIDE HANDOFF REPORT RECEIVED FROM GIS ENGINEER RN. PT SLEEPING, LEFT UNDISTURBED.
--- NOTE | 2017-06-11 07:43 | NUR ---
ESTEBAN WAS IN BED, WHEN HIS BREAKFAST GOT HERE, I ASKED ZAID FOR ASSISTANCE IN MOVING HIM TO HIS CHAIR SO HE COULD EAT BREKAFAST, WE PUT HIS DENTURES IN AND HE IS HAPPILY EATING HIS BREAKFAST.
--- NOTE | 2017-06-11 08:45 | NUR ---
PT WAS IN CHAIR ASKED FOR ASSITANCE GETTING BACK TO BED.
--- NOTE | 2017-06-11 09:30 | NUR ---
PT RESTING IN BED. PT COMPLAINT OF PAIN TO BILATERAL SHOULDERS, RATING PAIN 5/10, REQUESTING TYLENOL, GIVEN 650 MG TYLENOL. PT ON ROOM AIR, LUNG SOUND CLEAR WITH DIMINISHED CRACKLES IN LEFT LOWER LOBE. IV INFUSING LR AT 60 ML/HR. PT TOLERATING ADA DIET, GOOD APPETITE. PT WITH COLOSTOMY TO LEFT ABS, SMALL AMOUNT OF SOFT STOOL IN BAG, BOWEL TONES ACTIVE. PT STRAIGHT CATHED PER ORDER, DIFFICULTY ADVANCING 15 FR PAST PROSTATE, 14 FR EASILY ADVANCED, DRAINED 200 ML OF CLEAR URINE WITH SEDIMENT. PT WITHOUT EDEMA, CMS INTACT. CONTINUES TO REQUIRE 2PA WITH FWW TO STAND PIVOT TO CHAIR. PT DENIES OTHER NEEDS AT THIS TIME.
--- NOTE | 2017-06-11 09:44 | NUR ---
PT WAS IN BED HAD A VISITOR I DID HIS VITAL SIGNS
--- NOTE | 2017-06-11 10:45 | NUR ---
BROUGHT PT SOME COFFEE
--- NOTE | 2017-06-11 11:49 | NUR ---
PT RESTING IN BED, AT BEDSIDE. PT ASKED TO SIT IN CHAIR FOR LUNCH, DECLINING DUE TO SHOULDER PAIN. MEAL TRAY SET UP. PT DNEIES OTHER NEED AT THIS TIME.
--- NOTE | 2017-06-11 13:08 | NUR ---
PT HENNY CHAIR VISITING WITH , I WILL GRAB HELP TO GET HIM BACK TO BED.
--- NOTE | 2017-06-11 15:15 | NUR ---
PT RESTING COMFORTABLY IN BED. STRAIGHT CATHED PER ORDER, DRAINED 150 ML OF YELLOW URINE. PT LUNG SOUNDS CLEAR WITH CRACKLES TO LEFT LOWER LOBE. PT SALINE LOCKED. PT DENIES NEEDS AT THIS TIME.
--- NOTE | 2017-06-11 18:29 | NUR ---
PT ON ROOM AIR, LUNG SOUNDS CLEAR WITH CRACKLES TO LEFT LOWER LOBE. PT TOLERATING ADA DIET, GOOD APPETITE. PT TRANSITIONED TO PO AUGMENTIN. CONTINUES TO BE 2PA WITH FWW, STRENGTH IMPROVING. STRAIGHT CATHED X2 PER ORDER, RECOMMEND USING 14 FR CATH. PT WITH STOOL IN COLOSTOMY, CHANGED THIS EVENING. SALINE LOCKED.
--- NOTE | 2017-06-11 20:28 | NUR ---
REPOSITIONED IN BED, ATTENS CHANGED, INCONTINENT OF URINE. COOP WITH ASSESSMENTS, PROCEDURES EXPLAINED
--- NOTE | 2017-06-11 22:15 | NUR ---
RN MOIZ NOTIFIED RE BP.
--- NOTE | 2017-06-11 23:59 | NUR ---
SSISTED RN MOIZ STRAIGHT CATH AND CHANGED ATTENDS.
--- NOTE | 2017-06-12 00:46 | NUR ---
AWAKENS EASILY, NO DISTRESS, CONTIUES TO HAVE INCREASED MOIST NON PRODUCTIVE COUGH. HAS BEEN INCONTINENT OF URINE AND STRAIGHT CATHED EARLIER VOIDED 400CC CLEAR YELLOW URINE. COLOSTOMY INTACT. VERY HELPFUL WITH TURNING, LOTION TO RED FRONTAL REDDENED DANIELLE AREA. NO C/O PAIN OR .
--- NOTE | 2017-06-12 02:39 | NUR ---
INCONTINENT OF URINE, ATTENDS CHANGED. BARRIER LOTION APPLIED TO SLIGHTLY RED DANIELLE AREA. COOP. PROCEDURE EXPLAINED
--- NOTE | 2017-06-12 05:51 | NUR ---
Pt mildly confused to place. Incontinent of urine, attends changed and lotion to red jerson area, Pt also got straight cath as per orders, voiding clear yellow urine. Colostome patent. Procedures explained, very cooperative. SL patent. Pt lungs diminished at bases ans its noted that he is having an increase of moist, non productive cough, lungs diminished at bases, afebrile. Pleasant and cooperative. Pt is a 2 person full assist/edie lift. Pivot transfers. Pt possible dc'd soon to [place].
--- NOTE | 2017-06-12 06:24 | NUR ---
Incontinent of urine, attend and gown changed, colostomy patent and intact. Coopermary alvarado procedure
--- NOTE | 2017-06-12 07:50 | NUR ---
FAXED CHART NOTES TO [facility], INCLUDING FACESHEET, ER NOTES, H AND P, PROG NOTES, IMAGING, MEDS, AND PT AND OT EVALS AND NOTES. CALLED AND LEFT MESSAGE FOR KAILA POWER TRUCK DRIVER, TO REMIND HER OF THIS ADMIT THAT WE TALKED ABOUT LAST WEEK.
--- NOTE | 2017-06-12 08:14 | NUR ---
PATIENT SITTING STRAIGHT UP IN BED EATING BREAKFAST. RN TALKED TO PATIENT ABOUT GETTING UP TO THE CHAIR WHEN FINISHED. NO OTHER NEEDS AT THIS TIME. CALL BUTTON IN REACH.
--- NOTE | 2017-06-12 08:15 | NUR ---
PT SAT UP AT 90 DEGREE ANGLE TO EAT BREAKFAST. PT HAD EPISODE OF CHOKING WITH POSSIBLE ASPIRATION, PT HAD STRONG COUGH AND WAS ABLE TO RECOVER ON HIS OWN. ATE THE REST OF HIS MEAL WITHOUT FURTHER COMPLICATIONS. NOTIFIED CHARGE NURSE. PT ALERT AND ORIENTED THIS AM. DENIES NEEDS OR CONCERNS. SL FLUSHES WELL, DRESSING CDI. COLOSTOMY WNL, SMALL AMOUNT OF BROWN OUTPUT NOTED, SITE WITHOUT REDNESS OR SKIN IRRITATION. CALL LIGHT WITHIN REACH.
--- NOTE | 2017-06-12 08:23 | NUR ---
CALL TO DR. ROME THAT PATIENT CHOKED/POSS. ASPIRATED ON SCRAMBLED EGGS THIS MORNING. PATIENT WAS ABLE TO EFFECTIVELY COUGH THIS UP, AND ABLE TO FINISH BREAKFAST WITHOUT REPEAT OF EVENT.
--- NOTE | 2017-06-12 08:50 | NUR ---
TALKED WITH KAILA AND SHE SAID SHE WOULD BE SURE AND HAVE THE NURSES LOOK AT THOSE CHART NOTES AND TO LET ME KNOW.
--- NOTE | 2017-06-12 10:00 | NUR ---
STRAIGHT CATH COMPLETE PER ORDERED SCHEDULE. STERILE FIELD MAINTAINED THROUGHOUT. PT REQUIRES A 12 ITALIAN CATH TO PASS PROSTATE. PT TOLERATED WELL. 300ML OUT WITH CATH, AND LARGE INCONTINENCE WELL. PT SPOUSE AT BEDSIDE. PT NOW UP TO RECLINER AT THIS TIME
--- NOTE | 2017-06-12 10:00 | NUR ---
BED BATH AND DANIELLE CARE DONE. PATIENT UP TO CHAIR WITH 2 PERSON ASSIST WITH FWW. CALL BUTTON IN REACH. FRESH ICE WATER GIVEN. NO OTHER NEEDS AT THIS TIME. IN ROOM.
--- NOTE | 2017-06-12 11:25 | NUR ---
RECIEVED WORD FROM KAILA AT [facility] STATING THAT I COULD SEND THE ORDERS OVER NOW. FAXED THE ORDERS AND PASRR.
[2017-06-12] MEDS ORDERED: AMOXICILLIN500 MG PO (11:53)
[2017-06-12] MEDS ORDERED: LIDOCAINE HCL5 ML TOP (11:54)
[2017-06-12] MEDS ORDERED: AUGMENTIN 500-1 EACH PO (11:57)
--- NOTE | 2017-06-12 13:00 | NUR ---
STATED THEY ACCEPTED THE ORDERS THEY ARE AND KEIKO WILL BE COMING SOON TO GET PT AND TAKE HIM BACK TO [facility]
--- NOTE | 2017-06-12 13:17 | NUR ---
REPORT CALLED TO ENZO MEJIA AT [facility].
--- NOTE | 2017-06-12 13:30 | NUR ---
ASSISTED PATIENT WITH DRESSING FOR DISCHARGE.
== END 2017-06-12 13:30 | disposition home or self-care (01) | DRG 70 ==
LOC: ED 15:13 → MS 18:47
PROVIDERS: ADMIT Internal Medicine
DX: G93.41 Metabolic encephalopathy (principal); J15.6 Pneumonia due to other Gram-negative bacteria; N39.0 Urinary tract infection, site not specified; N18.4 Chronic kidney disease, stage 4 (severe); E11.22 Type 2 diabetes mellitus with diabetic chronic kidney disease; I12.9 Hypertensive chronic kidney disease with stage 1 through stage 4 chronic kidney disease, or unspecified chronic kidney disease; E78.5 Hyperlipidemia, unspecified; Z86.718 Personal history of other venous thrombosis and embolism; Z79.01 Long term (current) use of anticoagulants; B95.2 Enterococcus as the cause of diseases classified elsewhere; Z87.891 Personal history of nicotine dependence; Z85.038 Personal history of other malignant neoplasm of large intestine; Z90.49 Acquired absence of other specified parts of digestive tract; F03.90 Unspecified dementia, unspecified severity, without behavioral disturbance, psychotic disturbance, mood disturbance, and anxiety; N40.1 Benign prostatic hyperplasia with lower urinary tract symptoms; R33.8 Other retention of urine
CPT/HCPCS: 36415; 71046; 80053; 80069; 81001; 85025; 85610; 87070; 87077; 87088; 87186; 87205; 87449; 87899; 94667; 94668; 97110; 97162; 97165; J0456; J0696; J1650; J7030; J7120

== ENCOUNTER 2018-01-23 01:42 | Inpatient (IN) | payer MEDICARE, OTHER ==
[~2018-01-23] VITALS: Ht 190.5 cm; Wt 80.4 kg
--- OUTSIDE RECORDS SUMMARY | ~2018-01-23 | XMS | Clinical Summary ---
Demographics + + + | Address | [address] | | | [place] [address] | + + + | Home Phone | | + + + | Preferred Language | Unknown | + + + | Marital Status | | + + + | Religion Affiliation | Unknown | + + + | Race | Unknown | + + + | Ethnic Group | Unknown | + + + Author + + + | Author | [facility] | + + + | Organization | [facility] | + + + | Address | Unknown | + + + | Phone | Unavailable | + + + Support + + +---------+ + | Name | Relationship | Address | Phone | + + +---------+ + | Stephy Palomo | ECON | Unknown | | + + +---------+ + Care Team Providers + +------+ + | Care Crop Or Grain Farmer Name | Role | Phone | + +------+ + | Rodrigo Zavaleta DO | PP | | + +------+ + Allergies Not on File Current Medications Not on file Active Problems Not on file Social History + +-------+ +--------+------+ | Tobacco [...] on file | | + + + Plan of Treatment + + + + + | Health Maintenance | Due Date | Last Done | Comments | + + + + + | Vaccine: | | | | | Dtap/Tdap/Td (1 - | 1 | | | | Tdap) | | | | + + + + + | Vaccine: | | | | | Pneumococcal 65+ | 7 | | | | Low/Medium Risk (1 | | | | | of 2 - PCV13) | | | | + + + + + | Vaccine: Influenza | | 04/20/2015, 03/05/2014 | | | (#1) | 8 | | | + + + + + Results Not on filefrom Last 3 Months Insurance + +--------+ +------+-------+ + | Payer | Benefi | Subscriber | Type | Phone | Address | | | t Plan | ID | | | | | | / | | | | | | | Group | | | | | + +--------+ +------+-------+ + | MEDICARE | MEDICA | [id number] | | | [address] | | | RE | | | | [place] [address] | | | IP-OP | | | | | + +--------+ +------+-------+ + + +--------+ +--------+ + + | Guarantor Name | Accoun | Relation to | Date | Phone | Billing Address | | | t Type | Patient | of | | | | | | | | | | + +--------+ +--------+ + + | FRANK PALOMO SR. | Person | Self | [birth year] Home: | [address] | | | al/Fam | | 1930 | [phone] | [address] [place] | | | [place] | | | [phone] | + +--------+ +--------+ + +"
--- OUTSIDE RECORDS SUMMARY | ~2018-01-23 | XMS | Encounter Summary ---
Demographics + + + | Address | [address] | | | [place] [address] | + + + | Home Phone | | + + + | Preferred Language | Unknown | + + + | Marital Status | | + + + | Voodoo Affiliation | Unknown | + + + | Race | Unknown | + + + | Ethnic Group | Unknown | + + + Author + + + | Author | [facility] | | | and [place] | + + + | Organization | [facility] | | | and [place] | + + + | Address | Unknown | + + + | Phone | Unavailable | + + + Support + + +---------+ + | Name | Relationship | Address | Phone | + + +---------+ + | Genna Castillo | ECON | Unknown | | + + +---------+ + | Stephy Palomo | ECON | Unknown | | + + +---------+ + Care Team Providers + +------+ + | Care Paper Steamer Name | Role | Phone | + +------+ + PCP | Unavailable | + +------+ + Reason for Visit + + + | Reason | Comments | + + + | Medication Refill | | + + + Encounter Details +--------+--------+ + + + | Date | Type | Department | Care Team | Description | +--------+--------+ + + + | 01/09/ | Refill | [facility] | Sg Zavaleta | Medication Refill | | 2017 | | [facility] | E, DO [address] | | | | [facility] | [address] | | | | | [address] [facility], | [place] | | | | | [place] [address] | [address] | | | | | [phone] | [phone] | | | | | | | | +--------+--------+ + + + Social History + + + +--------+ + | Tobacco Use | Types | Packs/Day | Years | Date | | | | | Used | | + + + +--------+ + | Former Smoker | Cigarettes | 1 | 30 | Quit: 06/05/1979 | + + + +--------+ + + +---+---+---+ | Smokeless Tobacco: | | [...] Treatment Not on fileas of this encounter Visit Diagnoses Not on filein this encounter"
--- OUTSIDE RECORDS SUMMARY | ~2018-01-23 | XMS | Clinical Summary ---
Demographics + + + | Address | [address] | | | [place] [address] | + + + | Home Phone | | + + + | Preferred Language | Unknown | + + + | Marital Status | | + + + | Catholic Affiliation | Unknown | + + + | Race | Unknown | + + + | Ethnic Group | Unknown | + + + Author + + + | Author | [facility] | + + + | Organization | [facility] | + + + | Address | Unknown | + + + | Phone | Unavailable | + + + Support + + +---------+ + | Name | Relationship | Address | Phone | + + +---------+ + | Stephy Palomo | ECON | Unknown | | + + +---------+ + Care Team Providers + +------+ + | Care Sap Specialist Name | Role | Phone | + [...] +------+-------+ + | MEDICARE | MEDICA | [id number] | | | [address] | | | RE | | | | [place] [phone] | | | IP-OP | | | [...] | Self | [birth year] | Home: | [address] | | | al/Fam | | 1930 | [phone] | [address] [place] | | | [place] | | | [phone] | + +--------+ +--------+ + +"
--- OUTSIDE RECORDS SUMMARY | ~2018-01-23 | XMS | Clinical Summary ---
Demographics + + + | Address | [address] | | | [place] [address] | + + + | Home Phone | | + + + | Preferred Language | Unknown | + + + | Marital Status | | + + + | Presybeterian Affiliation | Unknown | + + + | Race | Unknown | + + + | Ethnic Group | Unknown | + + + Author + + + | Author | [facility] | | | and Kashifana | + + + | Organization | [facility] | | | and [...] Team Providers + +------+ + | Care Lap Regulator Name | Role | Phone | + +------+ + PP | Unavailable | + +------+ + Allergies No Known Allergies Current Medications + + + +---------+------+------+-------+ | Prescription | Sig. | Disp. | Refills | Star | End | Statu | | | | | | t | Date | s | | | | | | Date | | | + + + +---------+------+------+-------+ | glipiZIDE | Take 5 mg by mouth 2 | | | | | Activ | | (GLUCOTROL) 5 mg | times daily (before | | | | | e | | tablet | meals). | | | | | | + + + +---------+------+------+-------+ | travoprost | 1 drop nightly. | | | | | Activ | | (TRAVATAN) 0.004% | | | | | | e | | ophthalmic solution | | | | | | | + + + +---------+------+------+-------+ | cyanocobalamin | Take 1,000 mcg by | | | | | Activ | | (VITAMIN B-12) 1000 | mouth Daily. | | | | | e | | MCG tablet | | | | | | | + + + +---------+------+------+-------+ | simvastatin | Take 40 mg by mouth | | | | | Activ | | (ZOCOR) 80 mg tablet | nightly. | | | | | e | + + + +---------+------+------+-------+ | Levothyroxine | Take 125 mg by mouth | | | | | Activ | | Sodium 125 MCG CAPS | every morning | | | | | e | | | (before breakfast). | | | | | | + + + +---------+------+------+-------+ | Multiple | Take 1 tablet by | | | | | Activ | | Vitamins-Minerals | mouth Daily. | | | | | e | | (I-KENDALL) TABS | | | | | | | + + + +---------+------+------+-------+ | Misc. Devices | Use twice daily for | 1 each | 0 | 11/1 | | Activ | | (ACAPELLA) MISC | 10 breaths as needed | | | 6/20 | | e | | | to clear out | | | 15 | | | | | mucous. Dx: | | | | | | | | obstructive chronic | | | | | | | | bronchitis. OLIVIA: 99 | | | | | | | | months | | | | | | + + + +---------+------+------+-------+ | finasteride | Take 5 mg by mouth | | | | | Activ | | (PROSCAR) 5 mg | Daily. | | | | | e | | tabletIndications: | | | | | | | | Anemia in chronic | | | | | | | | renal disease, | | | | | | | | Secondary | | | | | | | | hyperparathyroidism | | | | | | | | of renal origin | | | | | | | | (HCC), Chronic | | | | | | | | kidney disease, | | | | | | | | stage III | | | | | | | | (moderate), | | | | | | | | Essential | | | | | | | | hypertension | | | | | | | + + + +---------+------+------+-------+ | calcitRIOL | Take 1 capsule by | 90 | 3 | 12/3 | | Activ | | (ROCALTROL) 0.5 MCG | mouth Three times a | capsule | | 0/20 | | e | | capsuleIndications: | | | | 15 | | | | Anemia in chronic | | | | | | | | renal disease, | | | | | | | | Secondary | | | | | | | | hyperparathyroidism | | | | | | | | of renal origin | | | | | | | | (HCC), Chronic | | | | | | | | kidney disease, | | | | | | | | stage III | | | | | | | | (moderate), | | | | | | | | Essential | | | | | | | | hypertension | | | | | | | + + + +---------+------+------+-------+ | Ostomy Supplies | USE DIRECTED, FOR | | 0 | 08/1 | | Activ | | (SKIN PREP WIPES) | OSTOMY PRODUCTS | | | 1/20 | | e | | MISC | | | | 16 | | | + + + +---------+------+------+-------+ | Ostomy Supplies | | | 0 | 08/1 | | Activ | | (ADHESIVE REMOVER | | | | 1/20 | | e | | WIPES) MISC | | | | 16 | | | + + + +---------+------+------+-------+ | Ostomy Supplies | use 2 daily | | 1 | 08/1 | | Activ | | (KASI-FIT NATURA | | | | 1/20 | | e | | CLOSED-END) POUCH | | | | 16 | | | | MISC | | | | | | | + + + +---------+------+------+-------+ | Ostomy Supplies | USE 1 WAFER EVERY | | 1 | 07/1 | | Activ | | (KASI-FIT NATURA | OTHER DAY | | | 10/22 | | e | | DURAHESIVE) WAFR | | | | 16 | | | + + + +---------+------+------+-------+ | warfarin | Take 0.5 tablets by | | | 04/06 | | Activ | | (COUMADIN) 5 mg | mouth Daily. | | | 01/22 | | e | | tabletIndications: | | | | 16 | | | | Aortic stenosis, | | | | | | | | mild, Chronic kidney | | | | | | | | disease, stage III | | | | | | | | (moderate), Anemia | | | | | | | | in chronic renal | | | | | | | | disease, Essential | | | | | | | | hypertension | | | | | | | + + + +---------+------+------+-------+ Active Problems + + + | Problem | Noted Date | + + + | Secondary hyperparathyroidism of renal origin (HCC) | 09/11/2016 | + + + | Mechanical complication of arteriovenous fistula surgically | 03/09/2016 | | created (HCC) | | + + + | Beta Dawit Use | 03/08/2016 | + + + | H/O TKA Total knee arthroplasty | 03/08/2016 | + + + | H/O Colon cancer - s/p resection | 03/08/2016 | + + + | H/O Skin cancer - Face | 03/08/2016 | + + + | H/O Pulmonary embolus (PE) | 03/08/2016 | + + + | 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 | 03/08/2016 | + + + | Type 2 diabetes mellitus - ORAL Control | 12/15/2015 | + + + | Secondary hyperparathyroidism of renal origin (HCC) | 06/02/2015 | + + + | Obstructive chronic bronchitis (HCC) | 09/30/2014 | + + + | Aortic stenosis, mild | 09/26/2014 | + + + | Former Jose Alfredo Ibarra | 07/10/2014 | + + + | Chronic thromboembolic disease (HCC) | 07/08/2014 | + + + | Pleural plaque with presence of asbestos and associated rounded | 07/08/2014 | | atelectasis | | + + + | COPD (chronic obstructive pulmonary disease) (HCC) | 07/08/2014 | + + + | Heart murmur | 07/08/2014 | + + + | Chronic kidney disease, stage III (moderate) | 05/27/2014 | + + + | Chronic kidney disease, stage IV (severe) (HCC) | 04/20/2014 | + + + | Anemia in chronic 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) | 04/20/2014 | + + + + + | Overview: ICD-10 Record update | + + + + + | Pulmonary embolism (HCC) | 03/05/2012 | + + + | Allergic rhinitis | | + + + | Hyperlipidemia | | + + + | HTN (hypertension) | | + + + | Hypothyroidism | | + + + | Vitamin B 12 deficiency | | + + + + + | Overview: did better on injections | + + + +---+ | Peripheral neuropathy | | + +---+ | Osteoarthritis | | + +---+ | Glaucoma | | + +---+ | Macular degeneration | | + +---+ | Skin cancer of face | | + +---+ + + | Overview: unknown type | + + + +---+ | 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 | | + +---+ + + | Overview: bilateral hear | + + Resolved Problems + + + + | Problem | Noted | Resolved | | | Date | Date | + + + + | Type II diabetes mellitus with renal manifestations | 04/20/20 | | | | 14 | 5 | + + + + | 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 | 04/20/20 | | | disease stage I through stage IV, or unspecified(403.90) | 14 | 5 | + + + + Encounters +--------+--------+ + + + | Date | Type | Specialty | Care Team | Description | +--------+--------+ + + + | 01/09/ | Refill | | Sg Zavaleta | Medication Refill | | 2017 | | | E, DO | | +--------+--------+ + + + from Last 3 Months Immunizations + + + + | Name | Dates Previously Given | Next Due | + + + + | INFLUENZA 67 Y OR >, | 04/20/2015 | | | TRIVALENT HIGH-DOSE | | | + + + + | INFLUENZA PF 20 Y OR | 03/05/2014 | | | >,TRIVALENT | | | | RECOMBINANT | | | + + + + | PNEUMOCOCCAL | 09/26/2014 | | | CONJUGATE 13-VALENT | | | | (PCV13) | | | + + + + | PNEUMOCOCCAL | 07/02/2012 | | | POLYSACCHARIDE | | | | 23-VALENT (PPSV23) | | | + + + + Family History + + +------+ + | Medical History | Relation | Name | Comments | + + +------+ + | Lung cancer | Brother | | | + + +------+ + | COPD | Father | | chronic bronchitis | + + +------+ + | Diabetes | Father | | elevated blood sugar | + + +------+ + | Glaucoma | Father | | | + + +------+ + | Heart failure | Father | | | + + +------+ + | Other (see comment) | Mother | | adhesions from surgeries | + + +------+ + | Stroke | Mother | | | + + +------+ + | Alzheimer's disease | Sister | | | + + +------+ + | Arthritis | Sister | | | + + +------+ + | Dementia | Sister | | | + + +------+ + | Thyroid disease | Sister | | | + + +------+ + + +------+ + + | Relation | Name | Status | Comments | + +------+ + + | Brother | | | lung cancer | + +------+ + + | Father | | | CHF | | | | (Age | | | | | 88) | | + +------+ + + | Mother | | | CVD | | | | (Age | | | | | 78) | | + +------+ + + | Sister | | Alive | | + +------+ + + Social History + + + [...] + + + | Blood Pressure | 100/68 | 04/03/2017 1011 PDT | + + + + | Pulse | 80 | 11/14/2016 1743 PDT | + + + + | Temperature | 35.9 C (96.6 F) | 04/03/2017 1011 PDT | + + + + | Respiratory Rate | 18 | 04/14/2016 1041 PST | + + + + | Oxygen Saturation | 93% | 04/14/20161040 PST | + + + + | Inhaled Oxygen | - | - | | Concentration | | | + + + + | Weight | 86.8 kg (191 lb 5.8 | 04/03/20171010 PDT | | | oz) | | + + + + | Height | 190.5 cm (6' 3") | 04/14/20161040 PST | + + + + | Body Mass Index | 23.92 | 04/03/20171010 PDT | + + + + Plan of Treatment + + + + + | Health Maintenance | Due Date | Last Done | Comments | + + + + + | Diabetic Eye Exam | | | | | (Bi-Annually) | 0 | | | + + + + + | Diabetic Foot Exam | | | | | | 0 | | | + + + + + | Vaccine: | | | | | Dtap/Tdap/Td (1 - | 1 | | | | Tdap) | | | | + + + + + | Hemoglobin A1c Q3 | | 11/08/2016, 08/26/2016, | | | Months | 7 | 03/07/2016, Additional history | | | | | exists | | + + + + + | Vaccine: Influenza | | 04/20/2015, 03/05/2014 | | | (#1) | 8 | | | + + + + + | Vaccine: | Completed | 09/26/2014, 07/02/2012 | | | Pneumococcal 65+ | | | | | High/Highest Risk | | | | + + + + + Procedures + +--------+ + + + | Procedure Name | Priori | Date/Time | Associated Diagnosis | Comments | | | ty | | | | + +--------+ + + + | LABS - EXTERNAL SCAN | | 01/16/2018 | | Results for this | | | | 0000 PDT | | procedure are in the | | | | | | results section. | + +--------+ + + + from Last 3 Months Results LABS - EXTERNAL SCAN (01/16/2018) + + + | Narrative | Performed At | + + + | Ordered by an | | | unspecified provider. | | + + + from Last 3 Months Insurance + +--------+ +--------+ +---------+ | Payer | Benefi | Subscriber | Type | Phone | Address | | | t Plan | ID | | | | | | / | | | | | | | Group | | | | | + +--------+ +--------+ +---------+ | MEDICARE | MEDICA | [id number] | Medica | +1- | | | | RE | | re | [phone] | | | | PART A | | | | | | | AND B | | | | | + +--------+ +--------+ +---------+ | COMBINED INSURANCE | COMBIN | [id number] | Indemn | [phone] | | | | ED INS | | ity | [phone] | | | | MDCR | | | | | | | SUPPL | | | | | + +--------+ +--------+ +---------+ + +--------+ +--------+ + + | Guarantor Name | Accoun | Relation to | Date | Phone | Billing Address | | | t Type | Patient | of | | | | | | | | | | + +--------+ +--------+ + + | FRANK PALOMO | Person | Self | [birth year] | Home: | [address] | [place] | | 1930 | [phone] | [address] [place] | | | [place] | | | [phone] | [phone] | + +--------+ +--------+ + +
--- OUTSIDE RECORDS SUMMARY | ~2018-01-23 | XMS | Clinical Summary ---
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
--- OUTSIDE RECORDS SUMMARY | ~2018-01-23 | XMS | Encounter Summary ---
Demographics + + + | Address | [address] | | | [place] [address] | + + + | Home Phone | | + + + | Preferred Language | Unknown | + + + | Marital Status | | + + + | Holiness Affiliation | Unknown | + + + [...] Team Providers + +------+ + | Care Business Partner Name | Role | Phone | + [...] Medication Refill | | 2017 | | [facility] | E, DO [address] | | | | [address] | [address] | | | | | [address] [facility], | [place] | | | | | [place] [address] | [address] | | | | | [phone] | [phone] | | | | | | | [...]
--- OUTSIDE RECORDS SUMMARY | ~2018-01-23 | XMS | Clinical Summary ---
Demographics + + + | Address | [address] | | | [place] [address] | + + + | Home Phone | | + + + | Preferred Language | Unknown | + + + | Marital Status | | + + + | Protestant Affiliation | Unknown | + + + | Race | Unknown | + + + | Ethnic Group | Unknown | + + + Author + + + | Author | [facility] | + + + | Organization | [facility] [employer] | + + + | Address | Unknown | + + + | Phone | Unavailable | + + + Support + + +---------+ + | Name | Relationship | Address | Phone | + + +---------+ + | Stephy Palomo | ECON | Unknown | | + + +---------+ + Care Team Providers + +------+ + | Care Specimen Transporter Name | Role | Phone | + [...] +------+-------+ + | MEDICARE | MEDICA | [id number] | | | [address] | | | RE | | | | [place] [address] | | | IP-OP | | | [...] | Self | [birth year] | Home: | [address] | | | al/Fam | | 1930 | [phone] | [address] [place] | | | [place] | | | [phone] | [phone] | + +--------+ +--------+ + +"
--- OUTSIDE RECORDS SUMMARY | ~2018-01-23 | XMS | Clinical Summary ---
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
--- OUTSIDE RECORDS SUMMARY | ~2018-01-23 | XMS | Encounter Summary ---
Demographics + + + | Address | [address] | | | [place] [address] | + + + | Home Phone [...] Team Providers + +------+ + | Care Stroke Program Coordinator Name | Role | Phone | + [...] Medication Refill | | 2017 | | [facility] | E, DO [address] | | | | | [address] | [address] | | | | | [address] [facility], | [place] | | | | | [place] [address] | [address] | | | | | [phone] | [phone] | | | | | | | [...]
--- OUTSIDE RECORDS SUMMARY | ~2018-01-23 | XMS | Clinical Summary ---
Demographics + + + | Address | [address] | | | [place] [address] | + + + | Home Phone | | + + + | Preferred Language | Unknown | + + + | Marital Status | Single | + + + | Confucianist Affiliation | Unknown | + + + | Race | Unknown | + + + | Ethnic Group | Other Race | + + + Author + + + | Author | [facility] | + + + | Organization | [facility] | + + + | Address | Unknown | + + + | Phone | Unavailable | + + + Care Team Providers + +------+ + | Care Event Marketing Manager Name | Role | Phone | + +------+ + | No Pcp Per Patient | PP | Unavailable | + +------+ + Source Comments JOSÉ LUIS is fully live on both [facility] InPatient.[facility] Allergies Not on File Current [...] | MEDICA | xxxxxxxxxx | Medica | +1- | [address] | | | RE A & | | re | [phone] | [place] [address] | | | B | | | [...] Self | [birth year] | Home: | [address] | | | al/Fam | | 1930 | [phone] | [address] [place] | | | [place] | | | [phone] | [phone] | + +--------+ +--------+ + +
--- OUTSIDE RECORDS SUMMARY | ~2018-01-23 | XMS | Clinical Summary ---
Demographics + + + | Address | [address] | | | [place] [address] | + + + | Home Phone | | + + + | Preferred Language | Unknown | + + + | Marital Status | Single | + + + | Mu-Ism Affiliation | Unknown | + + + | Race | Unknown | + + + | Ethnic Group | Other Race | + + + Author + + + | Author | [facility] | + + + | Organization | [facility] | + + + | Address | Unknown | + + + | Phone | Unavailable | + + + Care Team Providers + +------+ + | Care Stack Clerk Name | Role | Phone | + +------+ + | No Pcp Per Patient | PP | Unavailable | + +------+ + Source Comments JOSÉ LUIS is fully live on both [facility] and [facility] Allergies Not on File Current [...] | | re | [phone] | [place] [address] | | | B | | | [...] | [place] | | | [address] | [phone] | + +--------+ +--------+ + +
--- OUTSIDE RECORDS SUMMARY | ~2018-01-23 | XMS | Clinical Summary ---
Demographics + + + | Address | [address] | | | [place] [address] | + + + | Home Phone | | + + + | Preferred Language | Unknown | + + + | Marital Status | Single | + + + | Muslim Affiliation | Unknown | + + + | Race | Unknown | + + + | Ethnic Group | Other Race | + + + Author + + + | Author | [facility] | + + + | Organization | [facility] | + + + | Address | Unknown | + + + | Phone | Unavailable | + + + Care Team Providers + +------+ + | Care Car Salter Name | Role | Phone | + +------+ + | No Pcp Per Patient | PP | Unavailable | + +------+ + Source Comments JOSÉ LUIS is [facility] both [facility] and [facility] InPatient.[facility] Allergies Not on File Current [...] | | re | [phone] | [place] [address] | | | B | | | [...] | [place] | | | [address] | [phone] | + +--------+ +--------+ + +
[~2018-01-23 01:42] MED LIST changes: +ACETAMINOPHEN325 M2 PO; +ACIDOPHILUS1 EACH PO; +ADULT WAL-100 MG/5 M PO; +AMOXICILLIN500 MG PO; +ASPIR-LOW81 MG PO; +ATROPINE 0.01%-10 ML OP; +AUGMENTIN 500-1 EACH PO; +B-121000 MC2 PO; +BELLADONNA-OPIU30 MG PR; +BIOFREEZE118 ML TOP; +COUGH DROPS1 EACH MM; +COUMADIN2 MG PO; +COUMADIN2.5 MG PO; +DULCOLAX10 MG PR; +LEVOTHYROXINE125 MCG PO; +LIDOCAINE HCL5 ML TOP; +MACROBID 100 M100 MG PO; +MILK OF MA400 MG/5 M PO; +MIRALAX17 GM PO; +MULTIPLE VITAM1 EAC1 PO; +OCUVITE ADULT1 EAC1 PO; +PROZAC20 MG PO; +SENNA LAXATIVE8.6 MG PO; +TRANZAREL120 ML TOP; +TRAVATAN Z5 ML OU; +TROSPIUM CHLORI20 MG PO; +VITAMIN D31000 UNIT PO; +ZOCOR40 MG PO
--- NOTE | 2018-01-23 05:15 | NUR ---
PT ARRIVED TO UNIT VIA STRETCHER. PT PULLED OVER TO BED BY STAFF. PT REMAINS MOSTLY ASLEEP, ANSWERS GENERAL QUESTIONS WHEN ASKED. PT'S AT BEDSIDE. PT AND DENY NEEDS AT THIS TIME. ADMISSION TO BE COMPLETED.
--- NOTE | 2018-01-23 06:14 | NUR ---
ASSESSMENT COMPLETED AND PICTURES TAKEN FOR CHART. REDRESSED WOUNDS ON RT ARM COCCYX HAS ALLEVYN IN PLACE. IS AT BEDSIDE. CALL LIGHT IS WITHIN REACH. PT DENIES PAIN.
--- NOTE | 2018-01-23 07:49 | NUR ---
REPORT RECIEVED FROM ROBERTO IZQUIERDO. PT ASLEEP. BOOSTED UP IN BED AND AWOKE SOME, ENOUGH TO ANSWER THAT HE IS WARM ENOUGH. IN ROOM EATING BREAKFAST.
[2018-01-23] MEDS ORDERED: FLEET ENEMA133 ML PR (09:57)
[2018-01-23] MEDS ORDERED: GLIPIZIDE ER2.5 MG PO (09:59)
[2018-01-23] MEDS ORDERED: GLUCAGON EMERGEN1 MG INJ (10:00)
--- NOTE | 2018-01-23 10:01 | NUR ---
PT SLEEPING BUT EASILY WOKEN. ANSWERS MOST QUESTIONS ABOUT SELF AND KNOWS HE IS IN THE HOSPTIAL. PT STATES HIS NECK IS SORE AND WOULD LIKE A TYLENOL. UO QS.
[2018-01-23] MEDS ORDERED: MEGESTROL400 MG/10 PO (10:03)
[2018-01-23] MEDS ORDERED: NORVASC2.5 MG PO (10:04)
--- NOTE | 2018-01-23 10:10 | NUR ---
MED REC COMPLETE WITH RHEA COLLINS
--- NOTE | 2018-01-23 10:19 | NUR ---
PT GIVEN COMPLETE BEDBATH AND LINEN CHANGED. 2 STAFF MEMBERS ASSSISTED. PT RESTING.
--- NOTE | 2018-01-23 13:11 | NUR ---
ASSISTED PT TO EAT A FEW BITES OF CHICKEN NOODLE SOUP. STATES THAT IS THE MOST HE HAS EATEN IN DAYS. ALSO ASKED FOR SEVERAL DRINKS OF ICE WATER. K+RIDER INFUSING.
--- NOTE | 2018-01-23 14:03 | NUR ---
MET WITH PT'S , SHE WAS HEADED HOME TO GET SOME REST. THIS TIME HERE SEEMS TO HAVE TAKEN A TOLL ON HER, AND SHE IS WILLING TO ADMIT IT. SHE EXPRESSED FRUSTRATION WITH WHAT SHE FEELS IS AN ENDLESS CYCLE OF DEHYDRATION, UTI'S AND HOSPITALIZATIONS. SHE NOTED THAT AFTER EACH EPISODE, HE LOSES A LITTLE MORE GROUND. LOVES HER AND IS STANDING BY HIS SIDE, BUT IS WEARY. SHE HELD MY HAND AND THANKED ME. EXTENDED A BLESSING TO HER, WILL FOLLOW NEEDED
--- NOTE | 2018-01-23 16:01 | NUR ---
TOOK OVER CARE FOR THIS PATIENT FROM SKYLER RN AT 1330. PATIENT RESTING COMFORTABLY IN BED WITH AT BEDSIDE. FISTULA ASSESSED IN LEFT ARM. PILLOW ADJUSTED FOR COMFORT. RAISED BLANKETS TO SHOULDERS FOR COMFORT WELL. NO NEEDS AT THIS TIME. REPORTS SHE WILL BE LEAVING MED SURG FLOOR TO GO HOME FOR THE NIGHT AT 1800.
--- NOTE | 2018-01-23 17:10 | NUR ---
REPOSITIONED PATIENT ONTO LEFT SIDE WITH PILLOWS BEHIND BACK WITH ASSISTANCE FROM OCCUPATIONAL THERAPIST. STILL AT BEDSIDE.
--- NOTE | 2018-01-23 18:25 | EKG ---
[facility] [address] [facility] [place] [address] Signed Normal sinus rhythm Left axis deviation Nonspecific ST abnormality Abnormal ECG When compared with ECG of 06-DEC-2016 20:09, No significant change was found Confirmed by MARKEL LLOYD DO ([id number]) on 01/23/2018 6:24:52 PM Electronically Signed By: MARKEL LLOYD DO 01/23/18 1825 PATIENT NAME: FRANK ORTEZ SR Electrocardiogram DATE OF : 34 PHYSICIAN: MARKEL LLOYD DO REPORT #: [id number] REPORT IS CONFIDENTIAL AND NOT TO BE RELEASED WITHOUT AUTHORIZATION
--- NOTE | 2018-01-23 18:41 | NUR ---
PATIENT IS FROM [place]. BEDBOUND, FARZAD. ECHO PERFORMED TODAY. REGULAR DIET. CHRONIC SHEPARD. COLOSTOMY. D5W AT 125. K RIDER TODAY. TYLENOL X1 AT 1130. PT/OT. FEEDER, POOR ORAL INTAKE. BRUISING ON ARM AND LEGS FROM RECENT FALL. DAILY WEIGHT IN BED.
--- NOTE | 2018-01-23 19:25 | NUR ---
RECEIVED REPORT FROM DAY SHIFT RN. PATIENT IS RESTING IN BED WITH EYES CLOSED, RR 18. BED ALARM ON FOR SAFETY AND CALL LIGHT IN REACH.
--- NOTE | 2018-01-23 20:20 | NUR ---
PATIENT IS RESTING IN BED. PATIENT REPOSITIONED IN BED. PATIENT TOELRATED ACTIVYT WELL. PATIENT IS DROWSY BUT EASY TO WAKE. PATIENT TOOK PO MEDICATIONS WITH NO ISSUES. PATIENT IS SLOW TO RESPOND TO QUESTIONING AND FORGETFUL. PATIENT IS COOPERATIVE WITH CARE. BED ALARM REMAINS ON FOR SAFETY. CALL LIGHT IN REACH. NO NEEDS NOTED.
--- NOTE | 2018-01-23 22:50 | NUR ---
LAB IN THE ROOM. ASSISTED LAB WITH LAB DRAW. PATIENT REMAINS DROWSY. NO NEEDS NOTED. CALL LIGHT IN REACH. BED ALARM ON FOR SAFETY.
--- NOTE | 2018-01-23 23:30 | NUR ---
PATIENT REPOSITIONED. NO FURTHER NEEDS NOTED. BED ALARM ON FOR SAFETY. CALL LIGHT IN REACH.
--- NOTE | 2018-01-24 00:59 | NUR ---
PATIENT REPOSITIONED. PATIENT TOELRATED ACTIVITY WELL. NO NEEDS NOTED. CALL LIGHT IN REACH.
--- NOTE | 2018-01-24 03:48 | NUR ---
PATIENT RESPOSITIONED. PATIENTS COLOSTOMY BAG EMPTIED. PATIENT REMAINS UNAWARE OF SURROUNDINGS. REORINETED. PATIENT DENIES ANY NEEDS. HOT TEA PROVIDED TO DRINK. CALL LIGHT IN REACH. BED ALARM ON FOR SAFETY.
--- NOTE | 2018-01-24 04:53 | NUR ---
PATIENT RESTED WELL THROUGHOUT THE SHIFT. PATIENT IS ON A REGULAR DIET AND REQUIRES ASSISTANCE AND ENCOURAGEMENT AT MEAL TIMES. PATIENT HAS ORDER FOR PT/OT. PATIENT HAS A CHRONIC SHEPARD IN PLACE. PATIENT HAS COOSTOMY BAG. PATIENT HAS MULTIPLE SKIN TEARS. PATIENT IS ONLY OREINTED TO SELF. PATIENT HAS NOT BEEN OUT OF BED ON THIS SHIFT. PATIENT HAS BED ALARM ON FOR SAFETY.
--- NOTE | 2018-01-24 05:33 | NUR ---
PATIENTS VITALS TAKEN AND RECORDED BY WAFER MACHINE OPERATOR. PATIENT REPOSITIONED IN BED AND BED WEIGHT TAKEN AND RECORDED. PATIENTS SHEPARD EMPTIED. PATIENTS COLOSTOMY DOES NOT NEED EMPTIED AT THIS TIME. PATIENT DENIES ANY FURTHER NEEDS. PATIENT REMAINS ONLY ORIENTED TO SELF. PATIENTS BED ALARM REMAINS ON FOR SAFETY. CALL LIGHT IN REACH.
--- NOTE | 2018-01-24 05:33 | NUR ---
V/S I&O DAILY WT. DONE AND CHARTED.
--- NOTE | 2018-01-24 08:10 | NUR ---
PATIENT SITTING UP IN BED, FED BREAKFAST, PATIENT ATE 100% AT THIS TIME. HE C/O THROAT PAIN WITH SWALLOWING. HE HAS NO C/O PAIN AT THIS TIME.
--- NOTE | 2018-01-24 09:39 | NUR ---
PATIENT C/O NAUSEA, DOCTOR NOTIFIED AND ZOFRAN 4MG ORDERED.
--- NOTE | 2018-01-24 10:27 | NUR ---
IN ROOM VISITING. PATIENT IN BED, NOT SURE IF HE IS REALLY SLEEPING. STATES THEIR DAUGHTER WAS HERE WHEN PATIENT ATE BREAKFAST AND HE ATE 100% OF CREAM OF WHEAT. NURSING HELPED FEED HIM. PATIENT WAS ABLE TO FEED HIMSELF UP UNTIL ABOUT 5 DAYS AGO. STATES HE COULDN'T GET HIS COORDINATION RIGHT. SHE MENTIONED HE HAS BEEN NAUSEOUS FOR THE PAST 1 MONTH. HE DOES HAVE ZOFRAN PRN ORDERED. HE WEARS DENTURES BUT THEY ARE AT [facility]. ITS DIFFICULT TO GET HIM TO DRINK ANYTHING, STATES. MENTIONED ENSURE OR BOOST AND THEY TRIED THIS AT [facility] BUT DIDN'T HAVE MUCH LUCK GETTING PATIENT TO DRINK IT. PER CHART REVIEW, PATIENT HAS BEEN DECLINING THE PAST 3-4 WEEKS. HE IS ON A REGULAR DIET AT THIS TIME. NURSING STAFF WILL CONTINUE TO ASSIST WITH FEEDING PATIENT. WILL NEED SOFT FOODS DUE TO NO TEETH. WILL CONTINUE TO MONITOR.
--- NOTE | 2018-01-24 11:49 | NUR ---
PATIENT SITTING UP IN BED, [employer] ATTEMPTING TO FEED THE PATIENT BUT HE IS TOO SLEEPY AT THIS TIME, PUT FOOD IN THE FRIDGE AND WILL ATTEMPT AGAIN LATER.
--- NOTE | 2018-01-24 14:18 | NUR ---
PT SLEEPING, HAD HOPED TO CONNECT WITH PT'S . WILL TRY AGAIN. GOD BLESS THEM
--- NOTE | 2018-01-24 14:43 | NUR ---
PATIENT RESTING IN BED WITH EYES CLOSED. IN ROOM. FRESH WATER GIVEN. CALL LIGHT IN REACH. NO FURTHER NEEDS AT THIS TIME.
--- NOTE | 2018-01-24 15:07 | NUR ---
patient woke easily and was able to swallow pills with water without any trouble.
--- NOTE | 2018-01-24 15:14 | NUR ---
lab in to draw type and cross, lr hung and running at 75 mls/hr
--- NOTE | 2018-01-24 15:53 | NUR ---
PATIENT TAKEN TO CT SCAN VIA BED AT THIS TIME
--- NOTE | 2018-01-24 17:09 | NUR ---
BED BATH DONE BY THE TECHNOLOGY SALES REPRESENTATIVE, SHEPARD CARE COMPLETED.
--- NOTE | 2018-01-24 20:00 | NUR ---
PATIENT RESTING QUIETLY IN BED, NO C/O PAIN AND PATIENT IS REALLY ONLY ORIENTED TO SELF AT THIS TIME. PATIENT SEEMS CO BE FAIRLY COMFORTABLE IN THE BED.
--- NOTE | 2018-01-24 21:31 | NUR ---
ROUNDED CHARGE. PATIENT REPOSITIONED. PATIENT PROVIDED WITH WARM TEA. PATIENT DENIES ANY COMMENTS, QUESTIONS, OR CONCERNS. CALL LIGHT IN REACH.
--- NOTE | 2018-01-24 23:30 | NUR ---
PATIENT REPOSITIONED IN BED. PATIENT IS JUST CAT NAPPING FROM TIME TIME. PATIENT IS VISIBLE FROM THE NURSES DESK AND HAS BEEN DRINKING SOME TEA AND HAS EATEN SOME PUDDING. PATIENT HAS HAD NO C/O PAIN AND HAS BEEN IN FAIRLY GOOD SPIRITS. RESPIRATIONS EVEN AND REGULAR.
--- NOTE | 2018-01-25 01:45 | NUR ---
PATIENT RESTING QUIETLY AT THIS TIME. RESPIRATIONS 16BPM AND HE HAS BEEN TURNED TO HIS RIGHT SIDE. PATIENT DOES NOT SEEM TO BE IN ANY DISCOMFORT.
--- NOTE | 2018-01-25 04:00 | NUR ---
PATIENT WAS REPOSITIONED AND PULLED UP IN BED AND TURNED TO THE LEFT SIDE. PATIENT REMAINS IN GOOD SPIRITS AND IN NO PAIN.
--- NOTE | 2018-01-25 05:05 | NUR ---
PATIENT'S RFA REDRESSED WITH NON-ADHERENT AND KERLIX THE OLD DRESSING WAS COMING UNDONE AND WAS SOME WHAT SOILED. PATIENT WAS WEIGHED IN BED AT 163.2LBS. PATIENT IS IN GOOD SPIRITS, BUT IS NOT TAKING IN A LOT OF PO FLUIDS, BUT STILL HAS LR RUNNING AT 75MLS/HR.
--- NOTE | 2018-01-25 06:03 | NUR ---
PATIENT HAS SLEPT ON AND OFF THROUGH THE NIGHT. URINEOUTPUT HAS BEEN DCREASED. QUANTITY SUFFICIENT SHOULD HAVE BEEN ABOUT 445MLS FOR THE SHIFT WITH HIS CHRONIC SHEPARD, BUT HAS ONLY PUT OUT 325MLS. PATIENT HAS NOT HAD A LOT OF PO FLUID INTAKE, BUT DOES STILL HAVE LR AT 75MLS/HR IV. NO STOOL OUT OF THE COLOSTOMY BAG AND ONLY A BIT OF GAS. PATIENT HAS BEEN ABLE TO TAKE HIS ORAL MEDS WITHOUT DIFFICULTY, BUT IS REALLY ONLY ORIENTED TO SELF. PATIENT IS COOPERATIVE WITH HIS CARE.
--- NOTE | 2018-01-25 06:53 | NUR ---
WAS INFORMED PATIENT'S URINE OUTPUT WAS DECREASED THROUGH THE NIGHT AND HE IS GOING TO LOOK INTO IT WHEN HE COMES IN. NO NEW ORDERS GIVEN.
--- NOTE | 2018-01-25 07:15 | NUR ---
SHIFT REPORT RECEIVED FROM PSYCHOMETRIC EXAMINER RN AT BEDSIDE. PATIENT RESTING IN BED, RESPIRATIONS EVEN AND UNLABORED. DENIES PAIN AT THIS TIME, CALL LIGHT WITHIN REACH.
--- NOTE | 2018-01-25 08:40 | NUR ---
MORNING ASSESSMENT AND ROUTINE MEDICATIONS ADMINISTERED AT THIS TIME. PATIENT IS A/O X3 AND DENIES PAIN. PATIENT'S AND DAUGHTER IN ROOM VISITING WITH PATIENT. DENIES FURTHER NEEDS AT THIS TIME, CALL LIGHT WITHIN REACH.
--- NOTE | 2018-01-25 09:36 | NUR ---
pt is restingn in bed safely with call light in reach, bed alarm on, and in room. pt was reposistioned higher in bed and floated with pillows onto his left side. pt did not need anything at the moment
--- NOTE | 2018-01-25 10:38 | NUR ---
PATIENT SLEEPING. VISITING. DAUGHTER TOLD THAT PATIENT DRANK A CUP OF TEA IN THE MIDDLE OF THE NIGHT. HE ATE A FEW BITES OF CREAM OF WHEAT THIS MORNING. DID NOT EAT THE PEACHES. 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 DISCUSSED FOOD LIKES AND DISLIKES WITH . HE NORMALLY LIKES PEACHES, PEARS, APPLESAUCE, CREAM OF WHEAT, EGGS, ANY KIND OF MEAT THAT IS MOIST, PUDDING ESPECIALLY CHOCOLATE, MAC AND CHEESE, CHICKEN NOODLE SOUP, MASHED POTATOES AND GRAVY, PEANUT BUTTER. HE DOESN'T DRINK MUCH LIQUIDS. I MENTIONED WE CAN BOOST THE CALORIES IN THE CREAM OF WHEAT BY MAKING IT WITH WHOLE MILK, ADDING SOME BUTTER, PROTEIN POWDER, AND BROWN SUGAR. SHE SAID IT IS WORTH A TRY. PART OF PATIENT'S POOR APPETITE COULD BE RELATED TO THE SMALL BOWEL LOOPS THAT ARE DECOMPRESSED PER CT SCAN. THE PATIENT IS NOT VERY ALERT WHICH IS PART OF THE PROBLEM, TOO. HE NEEDS TO BE ALERT TO BE ABLE TO EAT EVEN IF HE IS BEING FED. HIS FOOD DISLIKES ARE YOGURT AND COTTAGE CHEESE BY ITSELF. CONTINUE REGULAR DIET. WILL TRY FORTIFIED CREAM OF WHEAT FOR BREAKFAST TOMORROW.
--- NOTE | 2018-01-25 12:09 | NUR ---
NG TUBE PLACED PER ORDER. PT TOLERATED WELL WITH MINIMAL PAIN, DID NOT COUGH OR GAG. GASTRIC CONTENT ASPIRATED. GERIATRICIAN CALLED FOR XRAY FOR TUBE PLACEMENT. AT BEDSIDE, PT DENIES OTHER NEEDS AT THIS TIME.
--- NOTE | 2018-01-25 13:45 | NUR ---
VERIFICATION OF NG TUBE PLACEMENT BY XRAY HAS BEEN RECEIVED, PT PLACED TO LIWS PER ORDER, SMALL AMOUNT OF GASTRIC FLUID IN TUBING. PT DENIES NEEDS, RESTING COMFORTABLY IN BED. PT DENIES OTHER NEEDS AT THIS TIME.
--- NOTE | 2018-01-25 13:53 | NUR ---
pt is resting in bed safely with bed alarm on, call light in reach, and in room. I checked pt's colostomy and there was no stool or gas to empty.
--- NOTE | 2018-01-25 14:17 | NUR ---
NG TUBE INSERTED TODAY A RESULT OF BOWEL OBSTRUCTION. IN TODAY, SEEMS DISTANT, DEALING WITH THE LATEST CHANGE APPARENTLY SEEMS TO HAVE CONSUMED HER THOUGHTS. WILL CONTINUE TO FOLLOW
--- NOTE | 2018-01-25 15:55 | NUR ---
AFTERNOON ASSESSMENT COMPLETE AT THIS TIME. PATIENT LAYING IN BED, RESPIRATIONS EVEN AND UNLABORED. IN THE ROOM, WATCHING TELEVISION. PATIENT DENIES PAIN. CALL LIGHT WITHIN REACH.
--- NOTE | 2018-01-25 17:41 | NUR ---
ATTEMPTED TO CALL ROCHELLE TO NOTIFY THAT NG TUBE WILL REMAIN UNTIL TOMORROW, BUSY SIGNAL, WILL ATTEMPT TO CALL AGAIN.
--- NOTE | 2018-01-25 18:15 | NUR ---
pt is resting in bed safely with alarm on and call light in reach. pt asked for his head to be lowered a little.
--- NOTE | 2018-01-25 18:32 | NUR ---
PATIENT IS A/O TO PERSON AND PLACE. HAS REMAINED DROSWY THROGUHOUT THE DAY. PATIENT IS ON NPO STATUS AND HAD A NASOGASTRIC TUBE INSERTED THIS AFTERNOON. CURRENTLY ON LOW INTERMITTENT WALL SUCTION. CHRONIC SHEPARD REMAINS IN PLACE, DRAINING CLEAR YELLOW URINE. PATEINT WAS ABLE TO SWALLOW PILLS WITH WATER. HEEL PROTECTORS IN PLACE. PATIENT HAS A COLOSTOMY BAG IN LEFT LOWER QUADRANT, NO STOOL REMOVED FROM COLOSTOMY BAG THIS SHIFT.
--- NOTE | 2018-01-25 18:38 | NUR ---
PT TURNED TO RIGHT SIDE, BUTTOX ASSESSED, ALLEVYN IN PLACE. PT DENIES OTHER NEEDS AT THIS TIME.
--- NOTE | 2018-01-25 19:19 | NUR ---
ROCHELLE CALLED, UPDATED ON NG TUBE, XRAY IN AM, AND CHLORSPECTIC SPRAY FOR COMFORT.
--- NOTE | 2018-01-25 19:30 | NUR ---
PATIENT RESTING QUIETLY IN BED, GETTING REPORT FROM DAYSHIFT RN. PATIENT'S RESPIRATIONS EVEN AND REGULAR AND EYES CLOSED.
--- NOTE | 2018-01-25 21:30 | NUR ---
PATIENT CONTINUESTO REST QUIETLY, BUT HAS BEEN REPOSITIONED TO HIS RIGHT SIDE. RESPIRATIONS ARE STILL REGULAR AND PATIENT IS PLEASANT AND CONVERSIVE.
--- NOTE | 2018-01-25 22:27 | NUR ---
I&OS DONE AND CHARTED.
--- NOTE | 2018-01-25 23:40 | NUR ---
PATIENT REPOSITIONEDTO SUPINE WITH HEAD OF BED ELEVATED. PATIENT IS HAVING NO PAIN AND ISTAKING PO FLUIDS ESPECIALLY TEA WHEN ENCOURAGED. IV CONTINUES TO RUN AT 75 MLS LRAN HOUR.
--- NOTE | 2018-01-26 01:33 | NUR ---
I &os done and charted.
--- NOTE | 2018-01-26 02:46 | NUR ---
MOOKIE'S RT ARM DRESSING REPLACED WITH NON-ADHERENT DRESSINGS, KERLIX, AND MICROPORE TAPE. PATIENT CONTINUESTO HAVE NO PAIN AND WAS ABLE TO DRINK A GLASS OF TEA AND EAT A SMALL CONTAINER OF PUDDING.
--- NOTE | 2018-01-26 06:27 | NUR ---
PATIENT SLEPT WELL MOST OF THE NIGHT. RT ARM DRESSING HAD TO BE REDRESSED JUST IT DID LAST NIGHT. PATIENT PULLED OUT HIS NG TUBE AND BOTH NAD WERE INFORMED AND AGREED TO LEAVE IT OUT IT WS NOT REALLY DRAINING ANYTHING ANYWAY. PATIENT BACK ON REGULAR DIET, TAKING PO FLUIDS, MAINLY TEA, AND EATING HIS MEDS WITH PUDDING. HIS SHEPARD IS DRAINING WELL. COLOSTOMY STILL HAS HAD NO RESULTS YET, BUT GAS. IV STILL INFUSING AT 75ML/HR WITH LR. LUNGS ARE CLEAR AND BOWEL TONES ACTIVE. PATIENT REMAINS VERY PLEASANT, AND COOPERATIVE WITH CARE.
--- NOTE | 2018-01-26 07:20 | NUR ---
RECIEVED REPORT FROM DAY SHIFT RN. PT IN BED. IMAGING TO ROOM FOR X RAY. PT REPOSITIONED. PILLOWS UNDER ELBOWS. OSTOMY INTACT WITH AIR BUT NO STOOL PRESENT. DENIES NEEDS. CALL LIGHT IN REACH. VISIBLE FROM NURSING STATION.
--- NOTE | 2018-01-26 08:01 | NUR ---
PATIENT RESTING IN BED, EYES CLOSED, CALL LIGHT IN REACH. AM CARE SET FOR PATIENT TO USE UPON AWAKENING.
--- NOTE | 2018-01-26 09:01 | NUR ---
PATIENT RESTING IN BED, EYES CLOSED. CALL LIGHT IN REACH. FAMILY IN ROOM. NO OTHER NEEDS.
--- NOTE | 2018-01-26 09:50 | NUR ---
OCCUPATIONAL THERAPY IN FOR BREAKFAST WITH PT. PT DID WELL FEEDING SELF. AT BEDSIDE.
--- NOTE | 2018-01-26 11:30 | NUR ---
ROUNDED WITH DR LLOYD. TALKED ABOUT PLAN OF CARE. ALL QUESTIONS ANSWERED.
--- NOTE | 2018-01-26 11:45 | NUR ---
BLOOD ADMINISTRATION CONSENT SIGNED AND PLACED IN CHART.
--- NOTE | 2018-01-26 12:00 | NUR ---
ASSISTED PHISICAL THERAPY WITH PT. PT TOLERATED WELL. CALL LIGHT IN REACH. AT BEDSIDE.
--- NOTE | 2018-01-26 14:38 | NUR ---
PATIENT RESTING IN BED, EYES CLOSED. THIS INTERLIBRARY LOAN SPECIALIST AND INTERLIBRARY LOAN SPECIALIST GENE REPOSITIONED PATIENT. CALL LIGHT IN REACH. NO OTHER NEEDS AT THIS TIME.
--- NOTE | 2018-01-26 15:09 | NUR ---
BLOOD TRANSFUSION STARTED AT 1446. NO REACTION AT THIS POINT. WILL CONT TO MONITOR. AT BEDSIDE.
--- NOTE | 2018-01-26 16:00 | NUR ---
THIS BUDGET MANAGER AND CARRILLO MILLS GAVE PATIENT COMPLETE BED BATH. THIS BUDGET MANAGER PERFORMED CATH CARE. CARRILLO MILLS ASSISTED WITH SHOWER CAP AND COMBED PATIENTS HAIR. PATIENT DRESSED IN CLEAN GOWN AND REPOSITIONED ONTO HIS RIGHT SIDE. LINENS CHANGED AND READJUSTED NEEDED, WARM BLANKETS PROVIDED FOR PATIENT. FAMILY IN ROOM. NO OTHER NEEDS AT THIS TIME.
--- NOTE | 2018-01-26 17:25 | NUR ---
PT IN BED WITH IN ROOM. APPEARS TO BE MORE ALERT AT THIS TIME. WAKING TO LESS STIMULI AND STAYING AWKAE FOR QUESTIONS. PT ORIENTED TO YEAR AND PLACE. DISORIENTED TO TOWN AND MONTH. HEEL PROTECTORS IN PLACE. CALL LIGHT IN REACH.
--- NOTE | 2018-01-26 17:53 | NUR ---
TRANSFUSING COMPLETED. PT TOLERATED WELL WITH NO TRANSFUSION REACTIONS NOTED. VS TAKEN AND WNL. MAINTAINENCE FLUIDS STARTED. CALL LIGHT IN REACH. DENIES FURTHER NEEDS.
--- NOTE | 2018-01-26 18:35 | NUR ---
pt slept most the day. [address] kessler consult for SBO. wounds on arms. stocking on left arm for iv. pt oriented to year and place. daily weight. turn q 2. bed bath this shift. william with qs u/o. colostomy with gas and 1 small hard stool.
--- NOTE | 2018-01-26 18:39 | NUR ---
PATIENT RESTING IN BED AT THIS TIME. CALL LIGHT IN REACH. NO OTHER NEEDS AT THIS TIME.
--- NOTE | 2018-01-26 21:02 | NUR ---
VITALS DONE AND CHARTED. PT SLEEPING WHEN DOING THEM.
--- NOTE | 2018-01-26 21:52 | NUR ---
16 Fr NG TUBE PLACED IN PT'S LEFT NARE. 5 ML'S UROJET USED LOCAL ANESTHETIC. AIR INTRODUCED AND AUSCULTATED BUBBLING IN PT'S BOWELS. GREEN/YELLOW GASTRIC CONTENTS ASPIRATED INTO SYRINGE. CHEST X-RAY ORDERED. TUBE CLAMPED AT THIS TIME AWAITNG MD'S REVIEW. PROCEDURE EXPLAINED, QUESTIONS ANSWERED. EDUCATION PROVIDED. PT DENIES REQUESTS AT THIS TIME. CALL LIGHT WITHIN REACH.
--- NOTE | 2018-01-26 22:17 | NUR ---
I&OS DONE AND CHARTED. PT'S CALL LIGHT IN REACH. HE NEEDS NOTHING AT THIS TIME.
--- NOTE | 2018-01-26 22:34 | NUR ---
ROUNDED CHARGE. PATIENT IS RESTING IN BED. PATIENT EXPRESSES DISLIKE FOR NG. EXPLAINED TO PATIENT THE IMPORTANCE OF NG. PATIENT VERBALIZES UNDERSTANDING. NO FURTHER NEEDS NOTED. CALL LIGHT IN REACH.
--- NOTE | 2018-01-26 22:40 | NUR ---
WAS CALLED WITH X-RAY RESULTS FOR NG-TUB PLACEMENT AND PERMISSION GIVEN TO HOOK NG UP TO LWIS. PATIENT NOT VERY HAPPY HAVING THE NG-TUBE, BUT IS TOLERATING IT FOR NOW.
--- NOTE | 2018-01-27 04:50 | NUR ---
PATIENT WAS NOT HAPPY WITH A NG TUB PLACEMENT EARLIER, BUT HE IS MUCH MORE RELAXED AND IN A BETTER HUMOR NOW. PATIENT HAS SOME CRACKLES IN THE BILAT BASES AND DEMINISHED UPPER LUNG VIGIL WITH HYPOACTIVE BOWEL TONES. 30MLS NG FLUSH WITH 175MLS OF BROWNISH/GREEN DRAINAGE IN THE SUCTION CONTAINER WITH THAT. PATIENT REPOSITIONED EVERY 2 HOURS AND SEEMS TO BE A BIT MORE ALERT THIS AM. SHEPARD STILL DRAINING WELL. PATIENT NPO AND USING MOUTH SWABS. COLOSTOMY BAG HAS BEEN BURPED AND 8 SMALL FORMED STOOL SAMPLES WERE EXPELLED. IV CONTINUES TO RUN AT 75MLS/HR LR. PATIENNT CURRENTLY RESTING QUIETLY WITH NO COMPLAINTS. KUB ORDERED FOR THE MORNING.
--- NOTE | 2018-01-27 05:30 | NUR ---
VITALS AND I&OS DONE AND CHARTED. GARBAGES EMPTIED. BEDSIDE TABLE AND CALL LIGHT WITHIN REACH.
--- NOTE | 2018-01-27 07:48 | NUR ---
RECEIVED REPORT FROM DAY SHIFT RN. PT IS IN BED, APPEARS MORE ALERT TODAY. NG TUBE IN LEFT NARE ON LIWS. IN THIS AM. UPDATED ON NIGHT AND PLAN OF CARE. CALL LIGHT IN REACH. HEEL PROTECTORS ON HEELS AND ELBOWS. FLUIDS INFUSING AT COREECT RATE.
--- NOTE | 2018-01-27 09:50 | NUR ---
REPOSITIONED PT TO RIGHT SIDE. HEEL PROTECTORS IN [place]. CALL LIGHT IN REACH. DENIES FURTHER NEEDS.
--- NOTE | 2018-01-27 10:00 | NUR ---
pt is resting in bed safely with call light in reach and in room. pt's colostomy was checked and just needed to be burped. pt was also given a swab for his mouth. pt did not need anything else at the moment
--- NOTE | 2018-01-27 12:00 | NUR ---
REPOSITIONED PT. CALL LIGHT IN REACH. AT BEDSIDE. QUESTIONS ANSWERED. NG TUBE TO LIWS. WATCHING TV DENIES FURTHER NEEDS.
--- NOTE | 2018-01-27 14:00 | NUR ---
PT REPOSITIONED. DENIES PAIN. HEEL PROTECTORS IN PLACE. PILLOWS UNDER RIGHT SIDE AND ELBOWS. CALL LIGHT IN REACH.
--- NOTE | 2018-01-27 16:00 | NUR ---
REPOSITIONED PT. REPORTS NO NEEDS OR PAIN AT THIS TIME . CALL LIGHT IN REACH.
--- NOTE | 2018-01-27 17:59 | NUR ---
pt is resting in bed safely with call light in reach. pt's colostomy was checked and had no output in it. pt was reposistioned higher in bed and floated with pillows on both sides.
--- NOTE | 2018-01-27 19:20 | NUR ---
SHIFT REPORT RECEIVED. PATIENT RESTING IN BED. NG IN PLACE. PATIENT DENIES PAIN. SMALL BM NOTED IN COLOSTOMY BAG. PATIENT ASKING IF THIS MEANS HE CAN HAVE THE NG OUT, TOLD PATIENT WE WOULD SPEAK WITH THE DOCTOR AND LET HIM KNOW.
--- NOTE | 2018-01-27 20:00 | NUR ---
SPOKE TO ABOUT PATIENT'S BM. ORDERS FOR KUB RECEIVED TO ASSESS BOWEL.
--- NOTE | 2018-01-27 21:00 | NUR ---
ACCORDING TO THE KUB DOES NOT SHOW THAT THE SBO IS RESOLVED. ORDERS TO KEEP NG TUBE TO LIWS AT THIS TIME. PATIENT NOTIFIED. HE VERBILIZED FRUSTERATION WITH THIS PLAN OF CARE. EDUCATION PROVIDED.
--- NOTE | 2018-01-27 21:17 | NUR ---
CLEANED UP THE MESS ON THE FLOOR FROM NG TUBE BEING PULLED OUT BY PT.
--- NOTE | 2018-01-27 21:30 | NUR ---
PATIENT HAS PULLED HIS NG TUBE OUT. MD AWARE. PATIENT REFUSING TO HAVE NG PLACED AND IS REQUESTING WE CALL HIS SO THAT HE CAN LEAVE. PATIENT REMAINS AAOX4 BUT FORGETFUL. DISCUSSED CURRENT ILLNESS WITH PATIENT AND ENCOURAGED HIM TO FOLLOW THE CARE PLAN. CONTINUES TO REFUSE NG TUBE.
--- NOTE | 2018-01-27 22:00 | NUR ---
STATES THAT THE PATIENT CAN HAVE SIPS OF WATER, EVEN WITHOUT THE NG TUBE IN PLACE. ORDERS TO KEEP HOB ELEVATED TO PREVENT ASPIRATION. MONITOR CLOSELY. REPEAT KUB IN THE AM TO EVALUATE.
--- NOTE | 2018-01-27 22:00 | NUR ---
PATIENT ASSESSMENT. PATIENT AAOX3. DENIES PAIN OR NAUSEA. LUNGS ARE CLEAR, DIMINISHED IN THE BASES. BOWEL SOUNDS HYPOACTIVE THROUGHOUT. ABD SOFT, NONTENDER. SHEPARD IN PLACE, SHEPARD CARE PERFORMED. PATIENT DECLINED TO BE REPOSITIONED AT THIS TIME. IV FLUIDS PER ORDER, SITE WNL. CALL LIGHT IN REACH.
--- NOTE | 2018-01-27 22:04 | CONS ---
[facility] [address], [place] [address] Signed DATE OF CONSULTATION: 01/26/2018 CONSULTING PHYSICIAN: Truong Jane MD REQUESTING PHYSICIAN: Vinicio Beyer MD PROBLEM: Probable small-bowel obstruction. HISTORY OF PRESENT ILLNESS: This 87-year-old white man resides in a local long term. He has undergone low anterior resection for rectal cancer a number of years ago, and has an end colostomy. He underwent colonoscopy by Dr. Osiel Wilde in 2013, where several small polyps were noted. He presented to the hospital on January 23, 2018, and was admitted by Dr. Beyer with altered mental status. The patient was considered declining for the preceding three weeks to this hospitalization with metabolic encephalopathy, and urinary tract infection. He has had decreased oral intake, and not feeding himself over the preceding few weeks very well. He has had agitation and hallucinations. He also was noted to have a sore throat, which was ultimately thought likely to be related to a yeast infection, and he has been started on nystatin. He underwent an echocardiogram on January 24, 2018, which showed [id number] aortic stenosis present with mildly thickened aortic valve. There was some mild mitral regurgitation present as well. I do not note an ejection fraction that was calculated though he is thought to have had an ejection fraction of 60% at one point. He was noted to have elevated red cells in the urine, and a CT scan was obtained to assess for nephrolithiasis. 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 A nasogastric tube was placed a day ago, which was poorly tolerated, and removed by the patient himself. Notably, the patient has no complaints of abdominal pain. He has had no nausea, or vomiting. A plain abdominal x-ray was performed today showing findings consistent with small bowel obstruction. He does have a , and I believe a daughter that has been visiting. His lab studies are remarkable for normal electrolytes at this time. The creatinine is 2.91 down from 3.3 with an INR of 2.8. A white cell count of 7.0, hematocrit of 22.6, and platelets of 116,000. A chest x-ray that was performed Electronically Signed By: TRUONG JANE MD 01/27/18 2204 PATIENT NAME: FRANK ORTEZ SR CONSULTATION DATE OF : 34 REPORT #: [id number] PHYSICIAN: TRUONG JANE MD PCP: MONICA AVINA DO REPORT IS CONFIDENTIAL AND NOT TO BE RELEASED WITHOUT AUTHORIZATION [facility] [address] [place], [place] [address] Signed yesterday showed nasogastric tube to be in place at that time. The x-ray today findings consistent with small bowel obstruction since nasogastric tube was removed. PHYSICAL EXAMINATION: GENERAL: A pleasant, thin white man who looks very elderly and infirm. Trachea is midline. CHEST: Shows no sign of tachypnea. Breath sounds are normal. Heart is regular. ABDOMEN: Not particularly distended, and definitely not tender. I do not feel the aneurysm on examination as there is some firmness to the abdomen, not guarding but possibly distention with air. LABORATORY STUDIES: His CT scan was reviewed in detail. There was no particular transition point to what appears to be dilated loops of small bowel. The colon is normal and end colostomy appears to be normal as well. I am unable to pull up the x-ray of the plain abdomen today, though the report does confirm findings suggestive of small bowel obstruction. ASSESSMENT: I reviewed the CT scans over several years. The aortic aneurysm is stable without sign of leakage. The small bowel is distended consistent with small bowel obstruction. Most likely, this would be related to adhesions. The source of anemia is quite unclear. He does have an elevated ProTime. His medication list is reviewed, which shows that he is taking warfarin. This has been discontinued during hospitalization so far, as I can tell. He shows no sign of occult bleeding, particularly though his anemia is of uncertain etiolDogy. His INR is decreasing today 2.8. I did discuss with him the rationale for nasogastric tube placement to decompress the stomach and now allow for spontaneous resolution of small bowel obstruction. This would be appropriate, as he is less likely to be a great candidate for operative intervention. However, the bowel obstruction, though asymptomatic at this time, may be contributing to his overall lack of initiative for eating over the past week or two. PLAN: We will review with Dr. Rome, who is now managing the patient the consideration for nasogastric tube decompression with followup KUB in the morning. We will further consider different etiologies for his anemia showing hematocrit of 22, and definitely hold his Coumadin on the possibility; however, remote of exploration for bowel obstruction. Truong Jane MD Electronically Signed By: TRUONG JANE MD 01/27/18 2204 PATIENT NAME: FRANK ORTEZ SR CONSULTATION DATE OF : 34 REPORT #: [id number] PHYSICIAN: TRUONG JANE MD PCP: MONICA AVINA DO REPORT IS CONFIDENTIAL AND NOT TO BE RELEASED WITHOUT AUTHORIZATION [facility] [address] [address] Signed /ANAND /[id number] cc: MD Vinicio Galeas MD Copies: DEWAYNE ROME MD, BRIAN DO ~ Electronically Signed By: TRUONG JANE MD 01/27/18 2204 PATIENT NAME: FRANK ORTEZ CONSULTATION DATE OF : 34 REPORT #: [id number] PHYSICIAN: TRUONG JANE MD PCP: MONICA AVINA DO REPORT IS CONFIDENTIAL AND NOT TO BE RELEASED WITHOUT AUTHORIZATION
--- NOTE | 2018-01-28 02:26 | NUR ---
PATIENT SLEEPING SOUNDLY. RR 18. IV FLUIDS PER ORDER, SITE WNL. CALL LIGHT IN REACH.
--- NOTE | 2018-01-28 05:50 | NUR ---
VITALS AND I&OS AND DAILY WEIGHT DONE AND CHARTED. GARBAGES EMPTIED. BEDSIDE TABLE AND CALL LIGHT IN REAQCH.
--- NOTE | 2018-01-28 06:58 | NUR ---
PATIENT HAD LARGE AMOUNT OF PEBBLE LIKE STOOL IN HIS OSTOMY. NO ABD PAIN. BOWEL SOUNDS ACTIVE. DISCUSSED FINDINGS WITH . HE REQUEST PATIENT BE ON CLEAR LIQUIDS AND GET A KUB THIS AM. VERIFIED WITH READ-BACK METHOD.
--- NOTE | 2018-01-28 07:00 | NUR ---
KUB LAST NIGHT SHOWED SOB HAD NOT RESOLVED. PATIENT PULLED NG TUBE AND REFUSED NEW ONE. MD AWARE. NO NAUSEA OR PAIN DURING THE NIGHT. BOWEL SOUNDS ACTIVE, ABD SOFT. LARGE SOLID BM THIS AM. KUB ORDERED FOR AM. REPEAT LABS PENDING. PATIENT REQUIRED REORIENTATION THROUGHOUT THE NIGHT, APPARENT SUNDOWNERS.
--- NOTE | 2018-01-28 07:10 | NUR ---
RECEIVED REPORT FROM PATIENT SERVICES ASSISTANT RN. PT IN BED APPEARS TO BE SLEEPING. [facility]
--- NOTE | 2018-01-28 08:18 | NUR ---
repostioned patient on right side at 0800
--- NOTE | 2018-01-28 11:45 | NUR ---
CAMP COOK IN TO ASSIST PT WITH BED BATH. DRESSING CHAGNES TO RIGHT ARM WITH NON-ADHERENT DRESSING, WRAP OVER TOP AND SLEEVE PLACED. LEFT ARM WITH ALEVYN AND TRIPLE ANTIBIOTIC OINTMENT. STERI STRIPS NOT REMOVED FROM LEFT ARM. CALL LIGHT IN REACH. AT BEDSIDE. PT ATE ALL OF LUNCH. NO N/V.
--- NOTE | 2018-01-28 12:42 | NUR ---
PHYSICAL THERAPY IN TO WORK WITH PT. PT NEED A LITTLE ENCOURAGEMENT BUT AGREED TO DO BED EXERCISES.
--- NOTE | 2018-01-28 13:30 | NUR ---
PT OOB UP TO CHAIR PER DR ROME'S ORDER. 2P FARZAD TRANSFER. PT COOPERATIVE WITH CARES. CALL LIGHT IN REACH. PT WATCHING TV AT THIS TIME.
--- NOTE | 2018-01-28 14:11 | NUR ---
pt has refused meals. pt eating pudding. call light within reach.
--- NOTE | 2018-01-28 14:24 | NUR ---
pt was sitting in chair, pt back to bed. pt has no needs at this time. call light in reach.
--- NOTE | 2018-01-28 14:30 | NUR ---
PT REFUSING TO STAY IN [facility] AT THIS POINT. REPORTS PAIN ON COCCYX AREA IS TOO UNBARRABLE EVEN THOUGH PILLOWS ARE THERE. PT AGREES TO TRY AGAIN LATER IN THE DAY WITH NEW PLAN FOR PILLOWS. REPORTS BEING VERY HUNGRY. ORDERED CREAM OF CHICKEN SOUP. CALL LIGHT IN REACH., DENIES FURTHER NEEDS.
--- NOTE | 2018-01-28 16:30 | NUR ---
PT REQUESTING MORE SUBSTANCE TO FOODS. DR ROME CALL. PT ADVANCED T SOFT DIET.
--- NOTE | 2018-01-28 17:50 | NUR ---
PT HAD SOFT DIET FOR DINNER. TOLERATED VERY WELL. NO N/V. COLOSTOMY PRODUCING SOFT STOOLAT THIS TIME. PT REPORTS HE FEELS FULL FOR THE FIRST TIME. CALL LIGHT IN REACH
--- NOTE | 2018-01-28 18:46 | NUR ---
PT HAD WONDERFULL DAY. PASSING MODERATE AMOUNT OF STOOL. NO N/V. ADVANCED TO SOFT DIET. UP TO CHAIR X1. PLAN TO DC TOMORROW. BOWEL TONES ACTIVE. XRAY IN THE MORNING. DRESSINGS ON BILAT ARMS CLEANED AND CHANGED. DRINKING LOTS OF FLUID. GREAT OUTPUT VIA CHRONIC SHEPARD. PT SL. TURN Q2.
--- NOTE | 2018-01-28 19:00 | NUR ---
SHIFT REPORT RECEIVED. PATIENT RESTING IN BED. WARM BLANKET PROVIDED. CALL LIGHT IN REACH.
--- NOTE | 2018-01-28 21:50 | NUR ---
VITALS AND I&OS DONE AND CHARTED. BEDSIDE TABLE AND CALL LIGHT IN REACH. BED ALARM SET.
--- NOTE | 2018-01-28 22:30 | NUR ---
SHIFT ASSESSMENT COMPLETE. PT RESTING IN BED WATCHING TELEVISION. PT AOX4, PLEASANT, RESPONSIVE TO QUESTIONS. DENIES ANY PAIN, N/V, DENIES ABD TENDERNESS. HEART SOUNDS HEARD MURMUR NOTED, LS CLEAR IN UPPPER LOBES BILATERALLY, BILATERAL LOWER LOBES DIMINSHED. BT ACTIVE IN ALL QUADRANTS. SMALL AMOUNT OF GREEN STOOL IN PT'S OSTOMY, SITE WNL. IV REMAINS SL. PT'S SKIN DRY, ARMS ECHYMOTIC, SLEEVES IN PLACE ON BOTH UPPER EXTREMITIES. DRESSINGS INTACT. BED ALARM ON, CALL LIGHT WITHIN REACH, HYDRATION AT THE BEDSIDE. FALL PRECAUTIONS IN PLACE, PT DENIES ANY NEEDS OR REQUESTS.
--- NOTE | 2018-01-29 03:24 | NUR ---
PT SOUNDLY ASLEEP IN BED. NO REQUESTS AT THIS TIME. CALL LIGHT WITHIN REACH.
--- NOTE | 2018-01-29 04:30 | NUR ---
PATIENT SLEPING SOUNDLY. WAKES EASILY TO SOUND. PATIENT HAD REPOSITIONED HIMSELF AND DENIES BEING TURNED. NO PAIN AT THIS TIME. SHEPARD DRAINING FREELY. COLOSTOMY HAS SOME STOOL IN IT, DOES NOT NEED EMPTIED AT THIS TIME. CALL LIGHT IN REACH.
--- NOTE | 2018-01-29 05:33 | NUR ---
PATIENT SLEPT WELL THIS SHIFT. ORIENTED X4. HARD OF HEARING AND SOMETIMES SLOW TO RESPOND. VS WNL. NO PAIN OR NAUSEA. ABD SOFT AND BOWEL SOUNDS ACTIVE. PATIENT HAVING SMALL SOFT STOOL OUTPUT IN COLOSTOMY. CHRONIC SHEPARD, OUTPUT QS. TURN Q2H WHEN ALLOWED BY PATIENT. PROVIDE EDUCATION ON SKIN CARE. SKIN TEARS ON ARMS, DRESSING INTACT. IV SL. BED/CHAIR BOUND, FARZAD LIFT. SOFT DIET. ASPIRATION PRECAUTIONS. PLAN TO DC TODAY.
--- NOTE | 2018-01-29 06:38 | NUR ---
VITALS AND I&OS DONE AND CHARTED. GARBAGES EMPTIED. FRESH WATER GIVEN. BEDSIDE TABLE AND CALL LIGHT IN REACH. BED ALARM SET. PT SLEEPING WHEN I LEFT.
--- NOTE | 2018-01-29 06:41 | NUR ---
BED WEIGHT DONE AND CHARTED.
--- NOTE | 2018-01-29 07:21 | NUR ---
PT SLEEPING, PRESENT, SEEMS PREOCCUPIED, JUST SAID MAHSA, SHE WAVED. WILL FOLLOW NEEDED
--- NOTE | 2018-01-29 08:10 | NUR ---
FAXED CHART NOTES TO [facility] FOR PT RETURN TO [facility]. INCLUDING FACESHEET, ER NOTES, H AND P, PROG NOTES, CONSULT, AND PT AND OT EVAL AND NOTES. RECIEVED FAX CONFIRMATION OF THIS.
--- NOTE | 2018-01-29 08:30 | NUR ---
ASSESSMENT DUE. PATIENT RESTING IN BED. PATIENT ORIENTED TO SELF AND LOCATION. MULTIPLE SKIN TEARS NOTED (SEE ASSESSMENT). PATIENT HOYERED TO CHAIR. PATIENT BEING FED BREAKFAST BY INVERTER AND CLIPPER. CALL LIGHT WITHIN REACH. NO FURTHER REQUESTS AT THIS TIME.
--- NOTE | 2018-01-29 08:47 | NUR ---
PT RESTING IN CHAIR. ASSISTED WITH EATING BREAKFAST.
--- NOTE | 2018-01-29 09:40 | NUR ---
TALKED WITH KAILA AT [facility] INFORMED HER PT WAS READY TO RETURN.
--- NOTE | 2018-01-29 10:10 | NUR ---
FAXED ORDERS AND PASRR TO [facility], RECIEVED FAX CONFIRMATION. MADE COPY OF ORDERS FOR PT CHART.
--- NOTE | 2018-01-29 11:05 | NUR ---
SHEPARD INSERTION DUE. REMOVED CURRENT SHEPARD. INSERTED NEW SHEPARD PER PROTOCOL. PATIENT TOLERATED WELL. DC'ED PIV, WNL. SITE DRESSED WITH GAUZE AND COBAN. COLOSTOMY BAG EMPTIED. PATIENT DRESSED BY ROBERTO THOMAS AND CARRILLO TEJADA. PATIENT PREPARED FOR TRANSFER TO [facility]. NO FURTHER REQUESTS AT THIS TIME. AT BEDSIDE.
--- NOTE | 2018-01-29 12:09 | NUR ---
PATIENT DISCHARGED TO [facility]. TRANSPORTER ARRIVED AND WHEELED PATIENT FROM HOSPITAL. PATIENT ORIENTED TO SELF AND CITY. PATIENT UNABLE TO VERBALIZE UNDERSTANDING OF DISCHARGE INSTRUCTIONS. REPORT CALLED TO [facility] BY ROBERTO THOMAS. QUESTIONS ASKED AND ANSWERED. NURSE VERBALIZES UNDERSTANDING AND STATES ALL HER QUESTIONS HAVE BEEN ANSWERED. REPORT GIVEN TO ROBERTO KHAN AT [facility]. DISCHARGE PACKET SENT WITH TRANSPORTER.
== END 2018-01-29 12:00 | disposition home or self-care (01) | DRG 388 ==
LOC: ED 01:42 → MS 01:43
PROVIDERS: ADMIT Student in an Organized Health Care Education/Training Program
DX: K56.609 Unspecified intestinal obstruction, unspecified as to partial versus complete obstruction (principal); G93.41 Metabolic encephalopathy; N17.9 Acute kidney failure, unspecified; N18.4 Chronic kidney disease, stage 4 (severe); E87.0 Hyperosmolality and hypernatremia; E11.22 Type 2 diabetes mellitus with diabetic chronic kidney disease; I12.9 Hypertensive chronic kidney disease with stage 1 through stage 4 chronic kidney disease, or unspecified chronic kidney disease; Z79.4 Long term (current) use of insulin; I35.0 Nonrheumatic aortic (valve) stenosis; I71.4 Abdominal aortic aneurysm, without rupture; Z86.718 Personal history of other venous thrombosis and embolism; Z79.01 Long term (current) use of anticoagulants; R62.7 Adult failure to thrive; E03.9 Hypothyroidism, unspecified; N40.0 Benign prostatic hyperplasia without lower urinary tract symptoms
CPT/HCPCS: 36415; 71045; 74018; 74176; 80048; 80053; 80069; 81001; 82550; 83605; 83735; 84484; 85025; 85610; 86850; 86900; 86901; 86920; 87040; 87088; 93005; 93010; 93306; 96374; 97110; 97162; 97166; 97530; 97535; 99285; G8978; G8979; J0696; J2405; J3480; J7030; J7070; J7120

== ENCOUNTER 2018-02-26 21:25 | Emergency (ER) | payer MEDICARE, OTHER ==
[~2018-02-26] VITALS: Ht 190.5 cm; Wt 80.4 kg
--- OUTSIDE RECORDS SUMMARY | ~2018-02-26 | XMS | Encounter Summary ---
Demographics + + + | Address | [address] | | | [place] [address] | + + + | Home Phone | | + + + | Preferred Language | Unknown | + + + | Marital Status | | + + + | Sabianist Affiliation | Unknown | + + + | Race | Unknown | + + + | Ethnic Group | Unknown | + + + Author + + + | Author | [facility] | + + + | Organization | [facility] [employer] | + + + | Address | Unknown | + + + | Phone | Unavailable | + + + Support + + +---------+ + | Name | Relationship | Address | Phone | + + +---------+ + | Stephy Palomo | ECON | Unknown | | + + +---------+ + Care Team Providers + +------+ + | Care Chief Operator Lock Tender Name | Role | Phone | + +------+ + | Rodrigo Zavaleta DO | PCP | | + +------+ + Encounter Details +--------+ + + + + | Date | Type | Department | Care Team | Description | +--------+ + + + + | 01/23/ | Ancillary | [facility] | Vinicio Beyer DO | Aortic valve | | 2017 | Procedure | ECHO | [address] | stenosis, etiology | | | | | [place] [address] | of cardiac valve | | | | | [phone] | disease unspecified; | | | | | | Syncope, | | | | | | unspecified syncope | | | | | | type | +--------+ + + + + Social History + +-------+ +--------+------+ | Tobacco Use | Types | Packs/Day | Years | Date | | | | | Used | | + +-------+ +--------+------+ | Never Assessed | | | | | + +-------+ +--------+------+ + + + | Sex Assigned at | Date Recorded | | | | + + + | Not on file | | + + + as of this encounter Plan of Treatment Not on fileas of this encounter Procedures + +--------+ + + + | Procedure Name | Priori | Date/Time | Associated Diagnosis | Comments | | | ty | | | | + +--------+ + + + | ECHO OUTSIDE | Routin | 01/23/2018 | Aortic valve | Results for this | | INTERPRETATION | e | 2:14 PM | stenosis, etiology | procedure are in the | | STANDARD | | PDT | of cardiac valve | results section. | | | | | disease unspecified | | | | | | Syncope, | | | | | | unspecified syncope | | | | | | type | | + +--------+ + + + in this encounter Results ECHO outside interpretation standard (01/23/2018 2:14 PM) + + + | Impressions | Performed At | + + + | 1. This was a technically difficult study with suboptimal views. 2. | [facility] | | Left ventricular systolic function is hyperdynamic with an estimated | RADIOLOGY | | EF of >70%. 3. 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 | | | 4. There is ggwonqax-vg-odqgex aortic stenosis present. 5. | | | Peak/mean gradient across the aortic valve is 38.20mmHg/20.00mmHg. | | + + + + + + | Narrative | Performed At | + + + | Patient Name: David Palomo Date of : 1930 | [facility] | | Performing Physician: Triston | RADIOLOGY | | Luis Daniel | | | | | | INDICATIONS AORTIC STENOSIS, SYNCOPE CONCLUSIONS | | | 1. This was a technically difficult study with suboptimal | | | views. 2. Left ventricular systolic function is hyperdynamic with an | | | estimated EF of >70%. 3. There is mild concentric left ventricular | | | hypertrophy. 4. There is otaqzubk-nw-igmgsy aortic stenosis present. | | | 5. Peak/mean gradient across the aortic valve is 38.20mmHg/20.00mmHg. | | | FINDINGS -------- ECG rhythm: Sinus rhythm. Study: A | | | 2-dimensional transthoracic echocardiogram with m-mode, spectral and | | | color flow Doppler was perfomed. Study: This was a technically | | | difficult study with suboptimal views. Left Ventricle: Left | | | ventricular systolic function is hyperdynamic with an estimated EF of | | | >70%. Left Ventricle: The cavity size is decreased. Left | | | Ventricle: There is mild concentric left ventricular hypertrophy. | | | Left Ventricle: Mild asymmetric septal hypertrophy with septal | | | thickness 13 - 15 mm. Left Ventricle: No CHARU or LVOT obstruction. | | | Left Ventricle: The diastolic filling pattern indicates impaired | | | relaxation consistent with mild dysfunction (Grade I). Right | | | Ventricle: The right ventricle is normal in size and function. Left | | | Atrium: The left atrium is mildly enlarged. Right Atrium: The right | | | atrium is normal in size. Aortic Valve: The aortic valve is mildly | | | calcified. Aortic Valve: There is no evidence of aortic | | | regurgitation. Aortic Valve: There is bhalsvmq-nt-eysawa aortic | | | stenosis present. Aortic Valve: Peak/mean gradient across the valve | | | is 38.20mmHg/20.00mmHg. Aortic Valve: Aortic valve is mildly | | | thickened. Aortic Valve: Dimensionless index of 0.29. Mitral Valve: | | | Normal appearing mitral valve. Mitral Valve: Mild mitral | | | regurgitation is present. Tricuspid Valve: The tricuspid valve | | | appears structurally normal. Tricuspid Valve: Mild tricuspid | | | regurgitation present. Tricuspid Valve: The right ventricular | | | systolic pressure (pulmonary artery systolic pressure), as measured by | | | Doppler, is 17 mmHg +CVP. Pulmonic Valve: Pulmonic valve appears | | | structurally normal. Pulmonic Valve: Trace pulmonic | | | regurgitation. Pericardium: There is no pericardial effusion. | | | IVC/Hepatic Veins: The inferior vena cava is normal in size and | | | collapses > 50 % with sniff, indicating normal central venous | | | pressures. Aorta: The aortic root, ascending aorta and aortic arch | | | are normal. Mass: No mass visualized Thrombus: No clot visualized | | | Thrombus: No vegetation visualized. Septum: No ASD observed. | | | Septum: No VSD observed. MEASUREMENTS Ao asc: | | | 3.17 cm Ao sinus: 3.[address] junct: 2.92 cm LA Diam: | | | 4.31 cm EDV(Teich): 72.48 ml IVSd: 1.17 cm LVIDd: 4.05 | | | cm LVPWd: 1.40 cm LVOT Area: 3.91 cm2 LVOT Diam: 2.23 | | | cm %FS: 49.19 % EF(Teich): 81.02 % ESV(Teich): 13.75 ml | | | IVSs: 1.55 cm LVIDs: 2.06 cm LVPWs: 1.66 cm | | | SV(Teich): 58.73 ml RVIDd: 2.83 cm LAESV(A-L): 69.45 ml | | | LAESV Index (A-L): 34.38 ml/m2 LAAs A2C: 20.01 cm2 LAESV | | | A-L A2C: 64.80 ml LALs A2C: 5.24 cm LAAs A4C: 20.14 cm2 | | | LAESV A-L A4C: 69.90 ml LALs A4C: 4.92 cm RAAs: 16.31 | | | cm2 RAESV A-L: 60.68 ml RAESV MOD: 57.02 ml RALs: 3.72 | | | cm TAPSE: 1.72 cm AV maxP.20 mmHg AV meanP.00 | | | mmHg AV Vmax: 3.09 m/s AV Vmean: 2.09 m/s AV VTI: | | | 56.19 cm JOSH Vmax: 1.16 cm2 JOSH (VTI): 1.28 cm2 AVAI | | | (Vmax): 0.00 cm2/m2 AVAI (VTI): 0.00 cm2/m2 LVOT maxPG: | | | 3.40 mmHg LVOT meanP.05 mmHg LVSI Dopp: 35.64 ml/m2 | | | LVSV Dopp: 72.01 ml LVOT Vmax: 0.92 m/s LVOT Vmean: 0.68 | | | m/s LVOT VTI: 18.38 cm MV A Ted: 1.13 m/s MV Dec | | | Jennings: 2.22 m/s2 MV DecT: 253.08 ms MV E Ted: 0.56 m/s | | | MV E/A Ratio: 0.49 MV PHT: 73.39 ms MVA By PHT: 2.99 | | | cm2 Septal e': 0.03 m/s Septal E/e': 15.03 Lateral e': | | | 0.06 m/s Lateral E/e': 8.93 TR maxP.64 mmHg TR | | | Vmax: 2.03 m/s Alpaca Farmer: MARLON Authenticated by: Triston | | | Luis Daniel Report Date/Time: 01-23-2018 17:41:56 | | + + + + + | Procedure Note | + + | Satish Bartlett Results In - 01/23/2018 5:42 PM PDT Patient Name: Lrary Palomo of | | : 1930ccession: [id number] Physician: Triston | | Korimerla INDICATIONS----- | | ------AORTIC STENOSIS, SYNCOPECONCLUSIONS 1. This was a technically difficult | | study with suboptimal views.2. Left ventricular systolic function is hyperdynamic with | | an estimated EF of >70%.3. 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 | | There is yjkryykb-gm-dcemmn aortic stenosis present.5. Peak/mean gradient across the | | aortic valve is 38.20mmHg/20.00mmHg.FINDINGS--------ECG rhythm: Sinus rhythm.Study: A | | 2-dimensional transthoracic echocardiogram with m-mode, spectral and color flow Doppler | | was perfomed. Study: This was a technically difficult study with suboptimal views.Left | | Ventricle: Left ventricular systolic function is hyperdynamic with an estimated EF of | | >70%. Left Ventricle: The cavity size is decreased. Left Ventricle: There is mild | | concentric left ventricular hypertrophy. Left Ventricle: Mild asymmetric septal | | hypertrophy with septal thickness 13 - 15 mm. Left Ventricle: No CHARU or LVOT | | obstruction. Left Ventricle: The diastolic filling pattern indicates impaired relaxation | | consistent with mild dysfunction (Grade I).Right Ventricle: The right ventricle is | | normal in size and function.Left Atrium: The left atrium is mildly enlarged.Right | | Atrium: The right atrium is normal in size. Aortic Valve: The aortic valve is mildly | | calcified. Aortic Valve: There is no evidence of aortic regurgitation. Aortic Valve: | | There is qpmfasal-mz-xwcyrw aortic stenosis present. Aortic Valve: Peak/mean gradient | | across the valve is 38.20mmHg/20.00mmHg. Aortic Valve: Aortic valve is mildly thickened. | | Aortic Valve: Dimensionless index of 0.29.Mitral Valve: Normal appearing mitral valve. | | Mitral Valve: Mild mitral regurgitation is present.Tricuspid Valve: The tricuspid valve | | appears structurally normal. Tricuspid Valve: Mild tricuspid regurgitation present. | | Tricuspid Valve: The right ventricular systolic pressure (pulmonary artery systolic | | pressure), as measured by Doppler, is 17 mmHg +CVP.Pulmonic Valve: Pulmonic valve | | appears structurally normal. Pulmonic Valve: Trace pulmonic regurgitation.Pericardium: | | There is no pericardial effusion.IVC/Hepatic Veins: The inferior vena cava is normal in | | size and collapses > 50 % with sniff, indicating normal central venous pressures.Aorta: | | The aortic root, ascending aorta and aortic arch are normal.Mass: No mass | | visualizedThrombus: No clot visualized Thrombus: No vegetation visualized.Septum: No ASD | | observed. Septum: No VSD observed.MEASUREMENTS Ao asc: 3.17 cmAo sinus: | | 3.[address] junct: 2.92 cmLA Diam: 4.31 cmEDV(Teich): 72.48 mlIVSd: 1.17 | | cmLVIDd: 4.05 cmLVPWd: 1.40 cmLVOT Area: 3.91 ur5NOSY Diam: 2.23 cm%FS: 49.19 | | %EF(Teich): 81.02 %ESV(Teich): 13.75 mlIVSs: 1.55 cmLVIDs: 2.06 cmLVPWs: 1.66 | | cmSV(Teich): 58.73 mlRVIDd: 2.83 cmLAESV(A-L): 69.45 mlLAESV Index (A-L): 34.38 | | ml/m2LAAs A2C: 20.01 [id number] A-L A2C: 64.80 mlLALs A2C: 5.24 cmLAAs A4C: 20.14 | | ta1APISU A-L A4C: 69.90 mlLALs A4C: 4.92 cmRAAs: 16.31 [id number] A-L: 60.68 | | mlRAESV MOD: 57.02 mlRALs: 3.72 cmTAPSE: 1.72 cmAV maxP.20 mmHgAV meanPG: | | 20.00 mmHgAV Vmax: 3.09 m/[place] Vmean: 2.09 m/[place] VTI: 56.19 cmAVA Vmax: 1.16 | | cm2AVA (VTI): 1.28 cz6VSPG (Vmax): 0.00 cm2/m2AVAI (VTI): 0.00 cm2/m2LVOT maxPG: | | 3.40 mmHgLVOT meanP.05 mmHgLVSI Dopp: 35.64 ml/m2LVSV Dopp: 72.01 mlLVOT | | Vmax: 0.92 m/sLVOT Vmean: 0.68 m/sLVOT VTI: 18.38 cmMV A Ted: 1.13 m/sMV Dec | | Jennings: 2.22 m/s2MV DecT: 253.08 msMV E Ted: 0.56 m/sMV E/A Ratio: 0.49 MV PHT: | | 73.39 msMVA By PHT: 2.99 nd8Akjwxl e': 0.03 m/sSeptal E/e': 15.03 Lateral e': | | 0.06 m/sLateral E/e': 8.93 TR maxP.64 mmHgTR Vmax: 2.03 m/sSonographer: | | DBSAuthenticated by: Triston Mantilla Date/Time: 01-23-2018 17:41:56IMPRESSION:1. | | This was a technically difficult study with suboptimal views.2. Left ventricular | | systolic function is hyperdynamic with an estimated EF of >70%.3. There is mild | | concentric left ventricular hypertrophy.4. There is curnpivk-ny-xlootp aortic stenosis | | present.5. Peak/mean gradient across the aortic valve is 38.20mmHg/20.00mmHg. | |Thrombus: No clot visualized | |Thrombus: No vegetation visualized. | |Septum: No ASD observed. | |Septum: No VSD observed. | | | |MEASUREMENTS | | | |Ao asc: 3.17 cm | |Ao sinus: 3.50 cm | |Ao st junct: 2.92 cm | |LA Diam: 4.31 cm | |EDV(Teich): 72.48 ml | |IVSd: 1.17 cm | |LVIDd: 4.05 cm | |LVPWd: 1.40 cm | |LVOT Area: 3.91 cm2 | |LVOT Diam: 2.23 cm | |%FS: 49.19 % | |EF(Teich): 81.02 % | |ESV(Teich): 13.75 ml | |IVSs: 1.55 cm | |LVIDs: 2.06 cm | |LVPWs: 1.66 cm | |SV(Teich): 58.73 ml | |RVIDd: 2.83 cm | |LAESV(A-L): 69.45 ml | |LAESV Index (A-L): 34.38 ml/m2 | |LAAs A2C: 20.01 cm2 | |LAESV A-L A2C: 64.80 ml | |LALs A2C: 5.24 cm | |LAAs A4C: 20.14 cm2 | |LAESV A-L A4C: 69.90 ml | |LALs A4C: 4.92 cm | |RAAs: 16.31 cm2 | |RAESV A-L: 60.68 ml | |RAESV MOD: 57.02 ml | |RALs: 3.72 cm | |TAPSE: 1.72 cm | |AV maxP.20 mmHg | |AV meanP.00 mmHg | |AV Vmax: 3.09 m/s | |AV Vmean: 2.09 m/s | |AV VTI: 56.19 cm | |JOSH Vmax: 1.16 cm2 | |JOSH (VTI): 1.28 cm2 | |AVAI (Vmax): 0.00 cm2/m2 | |AVAI (VTI): 0.00 cm2/m2 | |LVOT maxP.40 mmHg | |LVOT meanP.05 mmHg | |LVSI Dopp: 35.64 ml/m2 | |LVSV Dopp: 72.01 ml | |LVOT Vmax: 0.92 m/s | |LVOT Vmean: 0.68 m/s | |LVOT VTI: 18.38 cm | |MV A Ted: 1.13 m/s | |MV Dec Jennings: 2.22 m/s2 | |MV DecT: 253.08 ms | |MV E Ted: 0.56 m/s | |MV E/A Ratio: 0.49 | |MV PHT: 73.39 ms | |MVA By PHT: 2.99 cm2 | |Septal e': 0.03 m/s | |Septal E/e': 15.03 | |Lateral e': 0.06 m/s | |Lateral E/e': 8.93 | |TR maxP.64 mmHg | |TR Vmax: 2.03 m/s | | | |Alpaca Farmer: DBS | |Authenticated by: Triston Cary | |Report Date/Time: 01-23-2018 17:41:56 | | | |IMPRESSION: | |1. This was a technically difficult study with suboptimal views. | |2. Left ventricular systolic function is hyperdynamic with an estimated EF of >70%. | |3. 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 | |4. There is klpsklcz-dh-egbauz aortic stenosis present. | |5. Peak/mean gradient across the aortic valve is 38.20mmHg/20.00mmHg. | + + + + + + + | Performing | Address | City/State/Zipcode | Phone Number | | Organization | | | | + + + + + | [facility] | [address] | [place] [address] | | + + + + + in this encounter Visit Diagnoses + + | Diagnosis | + + | Aortic valve stenosis, etiology of cardiac valve disease unspecified | + + | Syncope, unspecified syncope type | + +"
--- OUTSIDE RECORDS SUMMARY | ~2018-02-26 | XMS | Clinical Summary ---
Demographics + + + | Address | [address] | | | [place] [address] | + + + | Home Phone | | + + + | Preferred Language | Unknown | + + + | Marital Status | Single | + + + | Amish Affiliation | Unknown | + + + | Race | Unknown | + + + | Ethnic Group | Other Race | + + + Author + + + | Author | [facility] | + + + | Organization | [facility] | + + + | Address | Unknown | + + + | Phone | Unavailable | + + + Care Team Providers + +------+ + | Care Sea Foam Kiss Maker Name | Role | Phone | + +------+ + | No Pcp Per Patient | PP | Unavailable | + +------+ + Source Comments [facility] Allergies Not on File Current [...] | re | [phone] | [place] [address] | | | B | | | [...] | feliz | | | [phone] | [phone] | + +--------+ +--------+ + +
--- OUTSIDE RECORDS SUMMARY | ~2018-02-26 | XMS | Clinical Summary ---
Demographics + + + | Address | [address] | | | [place] [address] | + + + | Home Phone | | + + + | Preferred Language | Unknown | + + + | Marital Status | Single | + + + | Taoism Affiliation | Unknown | + + + | Race | Unknown | + + + | Ethnic Group | Other Race | + + + Author + + + | Author | [facility] | + + + | Organization | [facility] | + + + | Address | Unknown | + + + | Phone | Unavailable | + + + Care Team Providers + +------+ + | Care Crayon Painter Name | Role | Phone | + +------+ + | No Pcp Per Patient | PP | Unavailable | + +------+ + Source Comments [facility] InPatient.[facility] Allergies Not on File Current Medications [...] | re | [phone] | [place] [address] | | | B | | | [...] | feliz | | | [phone] | [phone] | + +--------+ +--------+ + +
--- OUTSIDE RECORDS SUMMARY | ~2018-02-26 | XMS | Encounter Summary ---
Demographics + + + | Address | [address] [facility] [address] | | | [place] [address] | + + + | Home Phone | | + + + | Preferred Language | Unknown | + + + | Marital Status | | + + + | Congregational Affiliation | Unknown | + + + | Race | Unknown | + + + | Ethnic Group | Unknown | + + + Author + + + | Author | [facility] | | | and [place] | + + + | Organization | [facility] | | | and [...] Team Providers + +------+ + | Care Synthetic Chemist Name | Role | Phone | + [...] Medication Refill | | 2017 | | [facility] | E, DO [address] | | | | | [facility] [address] | [place], [place] | | | | [address] [place], | [address] | | | | | [place] [address] | [phone] | | | | | [phone] | | | +--------+--------+ + + + [...]
--- OUTSIDE RECORDS SUMMARY | ~2018-02-26 | XMS | Clinical Summary ---
Demographics + + + | Address | [address] | | | [place] [address] | + + + | Home Phone | | + + + | Preferred Language | Unknown | + + + | Marital Status | | + + + | Oriental Orthodox Affiliation | Unknown | + + + | Race | Unknown | + + + | Ethnic Group | Unknown | + + + Author + + + | Author | [facility] | | | and [place] | + + + | Organization | [facility] | | | [...] Team Providers + +------+ + | Care Captain Fire Prevention Bureau Name | Role | Phone | + [...] 03/08/2016 | + + + | H/O terminal manager anticoagulant use - COUMADIN | 03/08/2016 | [...] + + + + + | Vaccine: Zoster (1 | | | | | of 2) | 2 | | | + + + + [...] +--------+ +---------+ | MEDICARE | MEDICA | [id number] | Medica | [phone] | | | RE | | re | [phone] | | | | PART A | | | | | | | AND B | | | | | + +--------+ +--------+ +---------+ | COMBINED INSURANCE | COMBIN | [id number] | Indemn | [phone] | | | ED INS | [...] Self | [birth year] | Home: | [address] [facility] | | RAF[place] PERK[place]. | al/Fam | | 1930 | [phone] | [address] [place] | | | fel[place] | | | [phone] | [phone] | + +--------+ +--------+ + +
--- OUTSIDE RECORDS SUMMARY | ~2018-02-26 | XMS | Encounter Summary ---
Demographics + + + | Address | [address] | | | [place] [address] | + + + | Home Phone | | + + + | Preferred Language | Unknown | + + + | Marital Status | | + + + | Restoration Affiliation | Unknown | + + + | Race | Unknown | + + + | Ethnic Group | Unknown | + + + Author + + + | Author | [facility] | + + + | Organization | [facility] | + + + | Address | Unknown | + + + | Phone | Unavailable | + + + Support + + +---------+ + | Name | Relationship | Address | Phone | + + +---------+ + | Stephy Palomo | ECON | Unknown | | + + +---------+ + Care Team Providers + +------+ + | Care Quill Machine Tender Name | Role | Phone | + +------+ + | Rodrigo Zavaleta DO | PCP | | + +------+ + Encounter Details +--------+ + + + + | Date | Type | Department | Care Team | Description | +--------+ + + + + | 01/23/ | Ancillary | [facility] | Vinicio Beyer DO | Aortic valve | | 2018 | Orders | ECHO | [address] | stenosis, etiology | | | | | [place] [address] | of cardiac valve | | | | | [phone] | disease unspecified; | | | | [...] Treatment Not on fileas of this encounter Results ECHO outside interpretation standard [...] hypertrophy. | | | 4. There is xosrtmnv-xh-wvabmv aortic stenosis present. 5. | | | Peak/mean gradient across the aortic valve is 38.20mmHg/20.00mmHg. | | + + + + + + | Narrative | Performed At | + + + | Patient Name: David Palomo Date of : 1930 | [facility] | | Performing Physician: Triston | RADIOLOGY [...] | | | hypertrophy. 4. There is bnknomkq-ij-joncyg aortic stenosis present. | | | 5. [...] | | regurgitation. Aortic Valve: There is aecgaznx-ci-zepqcc aortic | | | stenosis present. Aortic [...] 1.13 m/s MV Dec | | | [place]: 2.22 m/s2 MV DecT: 253.08 ms MV E Ted: 0.56 m/s | | | MV E/A Ratio: 0.49 MV PHT: 73.39 ms MVA By PHT: 2.99 | | | cm2 Septal e': 0.03 m/s Septal E/e': 15.03 Lateral e': | | | 0.06 m/s Lateral E/e': 8.93 TR maxP.64 mmHg TR | | | Vmax: 2.03 m/s Oil Field Equipment Mechanic Supervisor: MARLON Authenticated by: Triston | | | Luis Daniel Report Date/Time: 01-23-2018 17:41:56 | | + + + + + | Procedure Note | + + | Dhruv, Rad Results In - 01/23/2018 5:42 PM PDT Patient Name: Spencer Palomo | | : 1930ccession: [id number] Physician: Triston | | Korimerla INDICATIONS----- | | ------AORTIC STENOSIS, SYNCOPECONCLUSIONS 1. This was a technically difficult | | study with suboptimal views.2. Left ventricular systolic function is hyperdynamic with | | an estimated EF of >70%.3. 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 | | There is lsffarks-kr-eimznr aortic stenosis present.5. Peak/mean gradient across the [...] regurgitation. Aortic Valve: | | There is qneeaofw-hs-yckdvz aortic stenosis present. Aortic Valve: Peak/mean gradient [...] cmLVIDd: 4.05 cmLVPWd: 1.40 cmLVOT Area: 3.91 xu6BKMI Diam: 2.23 cm%FS: 49.19 | | %EF(Teich): 81.02 %ESV(Teich): 13.75 mlIVSs: 1.55 cmLVIDs: 2.06 cmLVPWs: 1.66 | | cmSV(Teich): 58.73 mlRVIDd: 2.83 cmLAESV(A-L): 69.45 mlLAESV Index (A-L): 34.38 | | ml/m2LAAs A2C: 20.01 dk1GXFXZ A-L A2C: 64.80 mlLALs A2C: 5.24 cmLAAs A4C: 20.14 | | gx8ENGRE A-L A4C: 69.90 mlLALs A4C: 4.92 cmRAAs: 16.31 xq5LDXQF A-L: 60.68 | | mlRAESV MOD: 57.02 mlRALs: 3.72 cmTAPSE: 1.72 cmAV maxP.20 mmHgAV meanPG: | | 20.00 mmHgAV Vmax: 3.09 m/Lizbeth Vmean: 2.09 m/Lizbeth VTI: 56.19 cmAVA Vmax: 1.16 | | cm2AVA (VTI): 1.28 my9NZKP (Vmax): 0.00 cm2/m2AVAI (VTI): 0.00 cm2/m2LVOT maxPG: | | 3.40 mmHgLVOT meanP.05 mmHgLVSI Dopp: 35.64 ml/m2LVSV Dopp: 72.01 mlLVOT | | Vmax: 0.92 m/sLVOT Vmean: 0.68 m/sLVOT VTI: 18.38 cmMV A Ted: 1.13 m/sMV Dec | | [place]: 2.22 m/s2MV DecT: 253.08 msMV E Ted: 0.56 m/sMV E/A Ratio: 0.49 MV PHT: | | 73.39 msMVA By PHT: 2.99 hr6Botjpc e': 0.03 m/sSeptal E/e': 15.03 Lateral e': [...] | concentric left ventricular hypertrophy.4. There is iizzygyc-zh-otrwig aortic stenosis | | present.5. Peak/mean gradient [...] A Ted: 1.13 m/s | |MV Dec [place]: 2.22 m/s2 | |MV DecT: 253.08 ms | |MV E Ted: 0.56 m/s | |MV E/A Ratio: 0.49 | |MV PHT: 73.39 ms | |MVA By PHT: 2.99 cm2 | |Septal e': 0.03 m/s | |Septal E/e': 15.03 | |Lateral e': 0.06 m/s | |Lateral E/e': 8.93 | |TR maxP.64 mmHg | |TR Vmax: 2.03 m/s | | | |Oil Field Equipment Mechanic Supervisor: DBS | |Authenticated by: Triston Cary | |Report Date/Time: 01-23-2018 17:41:56 | | | |IMPRESSION: | |1. This was a technically difficult study with suboptimal views. | |2. Left ventricular systolic function is hyperdynamic with an estimated EF of >70%. | |3. 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 | |4. There is efvccmut-wg-mdwgki aortic stenosis present. | |5. Peak/mean gradient across the aortic valve is 38.20mmHg/20.00mmHg. | + + + + + + + | Performing | Address | City/State/Zipcode | Phone Number | | Organization | | | | + + + + + | [facility] | [address] | [place] [address] | | + + + + + in this encounter Visit Diagnoses + + | Diagnosis | + + | Aortic valve stenosis, etiology of cardiac valve disease unspecified | + + | Syncope, unspecified syncope type | + +"
--- OUTSIDE RECORDS SUMMARY | ~2018-02-26 | XMS | Encounter Summary ---
Demographics + + + | Address | [address] | | | [place] [address] | + + + | Home Phone | | + + + | Preferred Language | Unknown | + + + | Marital Status | | + + + | Episcopalian Affiliation | Unknown | + + + | Race | Unknown | + + + | Ethnic Group | Unknown | + + + Author + + + | Author | [facility] | + + + | Organization | [facility] | + + + | Address | Unknown | + + + | Phone | Unavailable | + + + Support + + +---------+ + | Name | Relationship | Address | Phone | + + +---------+ + | Stephy Palomo | ECON | Unknown | | + + +---------+ + Care Team Providers + +------+ + | Care Plating Machine Operator Name | Role | Phone | + +------+ + | Rodrigo Zavaleta DO | PCP | | + +------+ + Encounter Details +--------+ + + + + | Date | Type | Department | Care Team | Description | +--------+ + + + + | 01/23/ | Ancillary | [facility] | Vinicio Beyer DO | Aortic valve | | 2018 | Orders | ECHO | [address] | stenosis, etiology | | | | | [place] [address] | of cardiac valve | | | | | [phone] | disease unspecified; | | | | [...] hypertrophy. | | | 4. There is wcmffcuc-fi-dyyfbu aortic stenosis present. 5. | | | [...] | | | hypertrophy. 4. There is rsjbnvmw-zy-qstsqj aortic stenosis present. | | | 5. [...] | | regurgitation. Aortic Valve: There is vsyzphku-gu-gonikx aortic | | | stenosis present. Aortic [...] 1.13 m/s MV Dec | | | [place]: 2.22 m/s2 MV DecT: 253.08 ms MV E Ted: 0.56 m/s | | | MV E/A Ratio: 0.49 MV PHT: 73.39 ms MVA By PHT: 2.99 | | | cm2 Septal e': 0.03 m/s Septal E/e': 15.03 Lateral e': | | | 0.06 m/s Lateral E/e': 8.93 TR maxP.64 mmHg TR | | | Vmax: 2.03 m/s Junior Sales Assistant: MARLON Authenticated by: Triston | | | Luis Daniel Report Date/Time: 01-23-2018 17:41:56 | | + + + + + | Procedure Note | + + | Dhruv, Rad Results In - 01/23/2018 5:42 PM PDT Patient Name: Spencer Palomo | | : 1930ccession: [id number] Physician: Triston | | Korimerla INDICATIONS----- | | ------AORTIC STENOSIS, SYNCOPECONCLUSIONS 1. This was a technically difficult | | study with suboptimal views.2. Left ventricular systolic function is hyperdynamic with | | an estimated EF of >70%.3. 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 | | There is lfkflhmh-ws-zacmkf aortic stenosis present.5. Peak/mean gradient across the [...] regurgitation. Aortic Valve: | | There is wtokcsfu-kh-lcilva aortic stenosis present. Aortic Valve: Peak/mean gradient [...] cmLVIDd: 4.05 cmLVPWd: 1.40 cmLVOT Area: 3.91 bh9YJOG Diam: 2.23 cm%FS: 49.19 | | %EF(Teich): 81.02 %ESV(Teich): 13.75 mlIVSs: 1.55 cmLVIDs: 2.06 cmLVPWs: 1.66 | | cmSV(Teich): 58.73 mlRVIDd: 2.83 cmLAESV(A-L): 69.45 mlLAESV Index (A-L): 34.38 | | ml/m2LAAs A2C: 20.01 rn3SITSO A-L A2C: 64.80 mlLALs A2C: 5.24 cmLAAs A4C: 20.14 | | rq9XQOFB A-L A4C: 69.90 mlLALs A4C: 4.92 cmRAAs: 16.31 ww7RIHMW A-L: 60.68 | | mlRAESV MOD: 57.02 mlRALs: 3.72 cmTAPSE: 1.72 cmAV maxP.20 mmHgAV meanPG: | | 20.00 mmHgAV Vmax: 3.09 m/Lizbeth Vmean: 2.09 m/Lizbeth VTI: 56.19 cmAVA Vmax: 1.16 | | cm2AVA (VTI): 1.28 ku2ZXIY (Vmax): 0.00 cm2/m2AVAI (VTI): 0.00 cm2/m2LVOT maxPG: | | 3.40 mmHgLVOT meanP.05 mmHgLVSI Dopp: 35.64 ml/m2LVSV Dopp: 72.01 mlLVOT | | Vmax: 0.92 m/sLVOT Vmean: 0.68 m/sLVOT VTI: 18.38 cmMV A Ted: 1.13 m/sMV Dec | | [place]: 2.22 m/s2MV DecT: 253.08 msMV E Ted: 0.56 m/sMV E/A Ratio: 0.49 MV PHT: | | 73.39 msMVA By PHT: 2.99 zx1Facbap e': 0.03 m/sSeptal E/e': 15.03 Lateral e': [...] | concentric left ventricular hypertrophy.4. There is tktnchay-sz-tfuzdk aortic stenosis | | present.5. Peak/mean gradient [...] A Ted: 1.13 m/s | |MV Dec [place]: 2.22 m/s2 | |MV DecT: 253.08 ms | |MV E Ted: 0.56 m/s | |MV E/A Ratio: 0.49 | |MV PHT: 73.39 ms | |MVA By PHT: 2.99 cm2 | |Septal e': 0.03 m/s | |Septal E/e': 15.03 | |Lateral e': 0.06 m/s | |Lateral E/e': 8.93 | |TR maxP.64 mmHg | |TR Vmax: 2.03 m/s | | | |Junior Sales Assistant: DBS | |Authenticated by: Triston Cary | |Report Date/Time: 01-23-2018 17:41:56 | | | |IMPRESSION: | |1. This was a technically difficult study with suboptimal views. | |2. Left ventricular systolic function is hyperdynamic with an estimated EF of >70%. | |3. 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 | |4. There is hctplpyz-ym-aqhyja aortic stenosis present. | |5. Peak/mean gradient across the aortic valve is 38.20mmHg/20.00mmHg. | + + + + + + + | Performing | Address | City/State/Zipcode | Phone Number | | Organization | | | | + + + + + | [facility] | [address] | [place] [address] | | + + + + + in this encounter Visit Diagnoses + + | Diagnosis | + + | Aortic valve stenosis, etiology of cardiac valve disease unspecified | + + | Syncope, unspecified syncope type | + +"
--- OUTSIDE RECORDS SUMMARY | ~2018-02-26 | XMS | Clinical Summary ---
Demographics + + + | Address | [address] | | | [place] [address] | + + + | Home Phone | | + + + | Preferred Language | Unknown | + + + | Marital Status | | + + + | Presybeterian Affiliation | Unknown | + + + | Race | Unknown | + + + | Ethnic Group | Unknown | + + + Author + + + | Author | [facility] | + + + | Organization | [facility] | + + + | Address | Unknown | + + + | Phone | Unavailable | + + + Support + + +---------+ + | Name | Relationship | Address | Phone | + + +---------+ + | Stephy Palomo | ECON | Unknown | | + + +---------+ + Care Team Providers + +------+ + | Care Flour Mixer Name | Role | Phone | + +------+ + | Rodrigo Zavaleta DO | PP | | + +------+ + Allergies Not on File Current Medications Not on file Active Problems Not on file Encounters +--------+ + + + + | Date | Type | Specialty | Care Team | Description | +--------+ + + + + | 01/23/ | Ancillary | | Vinicio Beyer DO | Aortic valve | | 2017 | Procedure | | | stenosis, etiology | | | | | | of cardiac valve | | | | | | disease unspecified; | | | | | | Syncope, | | | | | | unspecified syncope | | | | | | type | +--------+ + + + + | 01/23/ | Ancillary | | Vinicio Beyer DO | Aortic valve | | 2017 | Orders | | | stenosis, etiology | | | | | | of cardiac valve | | | | | | disease unspecified; | | | | | | Syncope, | | | | | | unspecified syncope | | | | | | type | +--------+ + + + + from Last 3 Months Social History + +-------+ +--------+------+ | Tobacco [...] Pneumococcal 65+ | | | | | Low/Medium Risk | | | | + + [...] | | + +--------+ + + + from Last 3 Months Results ECHO outside interpretation standard (01/23/2018 2:14 [...] hypertrophy. | | | 4. There is qbpmehsg-ci-awvmqr aortic stenosis present. 5. | | | Peak/mean gradient across the aortic valve is 38.20mmHg/20.00mmHg. | | + + + + + + | Narrative | Performed At | + + + | Patient Name: Frank Palomo Date of : 1930 | [facility] | | Performing Physician: Triston | RADIOLOGY | | [place] | | | | | | INDICATIONS AORTIC STENOSIS, SYNCOPE CONCLUSIONS | | | 1. This was a technically difficult study with suboptimal | | | views. 2. Left ventricular systolic function is hyperdynamic with an | | | estimated EF of >70%. 3. There is mild concentric left ventricular | | | hypertrophy. 4. There is ufbzsmch-iu-wbuhco aortic stenosis present. | | | 5. [...] | | regurgitation. Aortic Valve: There is qonyfiey-hd-jvusyn aortic | | | stenosis present. Aortic [...] 1.13 m/s MV Dec | | | [place]: 2.22 m/s2 MV DecT: 253.08 ms MV E Ted: 0.56 m/s | | | MV E/A Ratio: 0.49 MV PHT: 73.39 ms MVA By PHT: 2.99 | | | cm2 Septal e': 0.03 m/s Septal E/e': 15.03 Lateral e': | | | 0.06 m/s Lateral E/e': 8.93 TR maxP.64 mmHg TR | | | Vmax: 2.03 m/s Warehouse Delivery Driver: MARLON Authenticated by: Triston | | | Luis Daniel Report Date/Time: 01-23-2018 17:41:56 | | + + + + + | Procedure Note | + + | Dhruv, Rad Results In - 01/23/2018 5:42 PM PDT Patient Name: Larry Palomo of | | : 1930ccession: [id number] Physician: Triston | | Korimerla INDICATIONS----- | | ------AORTIC STENOSIS, SYNCOPECONCLUSIONS 1. This was a technically difficult | | study with suboptimal views.2. Left ventricular systolic function is hyperdynamic with | | an estimated EF of >70%.3. 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 | | There is trdovmev-gt-tmvebt aortic stenosis present.5. Peak/mean gradient across the [...] regurgitation. Aortic Valve: | | There is gjbgptbc-zi-nlpbzs aortic stenosis present. Aortic Valve: Peak/mean gradient [...] cmLVIDd: 4.05 cmLVPWd: 1.40 cmLVOT Area: 3.91 zm5RPFG Diam: 2.23 cm%FS: 49.19 | | %EF(Teich): 81.02 %ESV(Teich): 13.75 mlIVSs: 1.55 cmLVIDs: 2.06 cmLVPWs: 1.66 | | cmSV(Teich): 58.73 mlRVIDd: 2.83 cmLAESV(A-L): 69.45 mlLAESV Index (A-L): 34.38 | | ml/m2LAAs A2C: 20.01 rt4VLTSF A-L A2C: 64.80 mlLALs A2C: 5.24 cmLAAs A4C: 20.14 | | tj5RJQXR A-L A4C: 69.90 mlLALs A4C: 4.92 cmRAAs: 16.31 ft8YLZBH A-L: 60.68 | | mlRAESV MOD: 57.02 mlRALs: 3.72 cmTAPSE: 1.72 cmAV maxP.20 mmHgAV meanPG: | | 20.00 mmHgAV Vmax: 3.09 m/Lizbeth Vmean: 2.09 m/Lizbeth VTI: 56.19 cmAVA Vmax: 1.16 | | cm2AVA (VTI): 1.28 cc4AOQI (Vmax): 0.00 cm2/m2AVAI (VTI): 0.00 cm2/m2LVOT maxPG: | | 3.40 mmHgLVOT meanP.05 mmHgLVSI Dopp: 35.64 ml/m2LVSV Dopp: 72.01 mlLVOT | | Vmax: 0.92 m/sLVOT Vmean: 0.68 m/sLVOT VTI: 18.38 cmMV A Ted: 1.13 m/sMV Dec | | [place]: 2.22 m/s2MV DecT: 253.08 msMV E Ted: 0.56 m/sMV E/A Ratio: 0.49 MV PHT: | | 73.39 msMVA By PHT: 2.99 tg4Sovriw e': 0.03 m/sSeptal E/e': 15.03 Lateral e': [...] | concentric left ventricular hypertrophy.4. There is aykabepi-he-zpdana aortic stenosis | | present.5. Peak/mean gradient [...] A Ted: 1.13 m/s | |MV Dec [place]: 2.22 m/s2 | |MV DecT: 253.08 ms | |MV E Ted: 0.56 m/s | |MV E/A Ratio: 0.49 | |MV PHT: 73.39 ms | |MVA By PHT: 2.99 cm2 | |Septal e': 0.03 m/s | |Septal E/e': 15.03 | |Lateral e': 0.06 m/s | |Lateral E/e': 8.93 | |TR maxP.64 mmHg | |TR Vmax: 2.03 m/s | | | |Warehouse Delivery Driver: DBS | |Authenticated by: Triston Cary | |Report Date/Time: 01-23-2018 17:41:56 | | | |IMPRESSION: | |1. This was a technically difficult study with suboptimal views. | |2. Left ventricular systolic function is hyperdynamic with an estimated EF of >70%. | |3. 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 | |4. There is otuxsddn-la-bcvjlh aortic stenosis present. | |5. Peak/mean gradient across the aortic valve is 38.20mmHg/20.00mmHg. | + + + + + + + | Performing | Address | City/State/Zipcode | Phone Number | | Organization | | | | + + + + + | [facility] | [address] | [place] [address] | | + + + + + from Last 3 Months Insurance + +--------+ +------+-------+ + | Payer | Benefi | Subscriber | Type | Phone | Address | | | t Plan | ID | | | | | | / | | | | | | | Group | | | | | + +--------+ +------+-------+ + | MEDICARE | MEDICA | [id number] | | | [address] | | | RE | | | | [place] [address] | | | IP-OP | | | [...] | [birth year] | Home: | [address] | | | al/Fam | | 1930 | [phone] | [address] [place] | | | feliz | | | [phone] | [phone] | + +--------+ +--------+ + +"
--- OUTSIDE RECORDS SUMMARY | ~2018-02-26 | XMS | Encounter Summary ---
Demographics + + + | Address | [address] [facility] [address] | | | [place] [address] | + + + | Home Phone | | + + + | Preferred Language | Unknown | + + + | Marital Status | | + + + | Hindu Affiliation | Unknown | + + + | Race | Unknown | + + + | Ethnic Group | Unknown | + + + Author + + + | Author | [facility] | | | and Kashifana | + + + | Organization | [facility] | | | and [...] Team Providers + +------+ + | Care Ribbon Winder Name | Role | Phone | + [...] | | | [facility] [address] | [place], [place] | | | | [address] [place], | [address] | | | | | [place] [address] | [phone] | | | | | [phone] | | | +--------+--------+ + + + [...]
--- OUTSIDE RECORDS SUMMARY | ~2018-02-26 | XMS | Clinical Summary ---
Demographics + + + | Address | [address] | | | [place] [address] | + + + | Home Phone | | + + + | Preferred Language | Unknown | + + + | Marital Status | | + + + | Episcopalian Affiliation | Unknown | + + + | Race | Unknown | + + + | Ethnic Group | Unknown | + + + Author + + + | Author | [facility] | + + + | Organization | [facility] | + + + | Address | Unknown | + + + | Phone | Unavailable | + + + Support + + +---------+ + | Name | Relationship | Address | Phone | + + +---------+ + | Stephy Palomo | ECON | Unknown | | + + +---------+ + Care Team Providers + +------+ + | Care Clearance Diver Name | Role | Phone | + [...] hypertrophy. | | | 4. There is fjrwkqcy-ms-fkzyam aortic stenosis present. 5. | | | [...] | | | hypertrophy. 4. There is olmfxueb-hv-dtydgm aortic stenosis present. | | | 5. [...] | | regurgitation. Aortic Valve: There is blfypqzp-yq-aibbay aortic | | | stenosis present. Aortic [...] 1.13 m/s MV Dec | | | [place]: 2.22 m/s2 MV DecT: 253.08 ms MV E Ted: 0.56 m/s | | | MV E/A Ratio: 0.49 MV PHT: 73.39 ms MVA By PHT: 2.99 | | | cm2 Septal e': 0.03 m/s Septal E/e': 15.03 Lateral e': | | | 0.06 m/s Lateral E/e': 8.93 TR maxP.64 mmHg TR | | | Vmax: 2.03 m/s Draw End Hand: MARLON Authenticated by: Triston | | | Luis Daniel Report Date/Time: 01-23-2018 17:41:56 | | + + + + + | Procedure Note | + + | Dhruv, Rad Results In - 01/23/2018 5:42 PM PDT Patient Name: Larry Palomo of | | : 1930ccession: [id number] Physician: Triston | | Korimer[place] INDICATIONS----- | | ------AORTIC STENOSIS, SYNCOPECONCLUSIONS 1. This was a technically difficult | | study with suboptimal views.2. Left ventricular systolic function is hyperdynamic with | | an estimated EF of >70%.3. 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 | | There is vxkkhonk-qj-dqfulw aortic stenosis present.5. Peak/mean gradient across the [...] regurgitation. Aortic Valve: | | There is ptpbkzjv-za-ignrwa aortic stenosis present. Aortic Valve: Peak/mean gradient [...] cmLVIDd: 4.05 cmLVPWd: 1.40 cmLVOT Area: 3.91 sz4EOIG Diam: 2.23 cm%FS: 49.19 | | %EF(Teich): 81.02 %ESV(Teich): 13.75 mlIVSs: 1.55 cmLVIDs: 2.06 cmLVPWs: 1.66 | | cmSV(Teich): 58.73 mlRVIDd: 2.83 cmLAESV(A-L): 69.45 mlLAESV Index (A-L): 34.38 | | ml/m2LAAs A2C: 20.01 wz4UCYHW A-L A2C: 64.80 mlLALs A2C: 5.24 cmLAAs A4C: 20.14 | | vl8QANVZ A-L A4C: 69.90 mlLALs A4C: 4.92 cmRAAs: 16.31 ux5DRIYU A-L: 60.68 | | mlRAESV MOD: 57.02 mlRALs: 3.72 cmTAPSE: 1.72 cmAV maxP.20 mmHgAV meanPG: | | 20.00 mmHgAV Vmax: 3.09 m/Lizbeth Vmean: 2.09 m/Lizbeth VTI: 56.19 cmAVA Vmax: 1.16 | | cm2AVA (VTI): 1.28 wd3JJJP (Vmax): 0.00 cm2/m2AVAI (VTI): 0.00 cm2/m2LVOT maxPG: | | 3.40 mmHgLVOT meanP.05 mmHgLVSI Dopp: 35.64 ml/m2LVSV Dopp: 72.01 mlLVOT | | Vmax: 0.92 m/sLVOT Vmean: 0.68 m/sLVOT VTI: 18.38 cmMV A Ted: 1.13 m/sMV Dec | | [place]: 2.22 m/s2MV DecT: 253.08 msMV E Ted: 0.56 m/sMV E/A Ratio: 0.49 MV PHT: | | 73.39 msMVA By PHT: 2.99 tn5Awsnzi e': 0.03 m/sSeptal E/e': 15.03 Lateral e': [...] | concentric left ventricular hypertrophy.4. There is bssautdz-rp-cajukb aortic stenosis | | present.5. Peak/mean gradient [...] A [place]: 1.13 m/s | |MV Dec [place]: 2.22 m/s2 | |MV DecT: 253.08 ms | |MV E Ted: 0.56 m/s | |MV E/A Ratio: 0.49 | |MV PHT: 73.39 ms | |MVA By PHT: 2.99 cm2 | |Septal e': 0.03 m/s | |Septal E/e': 15.03 | |Lateral e': 0.06 m/s | |Lateral E/e': 8.93 | |TR maxP.64 mmHg | |TR Vmax: 2.03 m/s | | | |Draw End Hand: DBS | |Authenticated by: Triston Cary | |Report Date/Time: 01-23-2018 17:41:56 | | | |IMPRESSION: | |1. This was a technically difficult study with suboptimal views. | |2. Left ventricular systolic function is hyperdynamic with an estimated EF of >70%. | |3. 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 | |4. There is svzsvkbu-nz-zezspc aortic stenosis present. | |5. Peak/mean gradient across the aortic valve is 38.20mmHg/20.00mmHg. | + + + + + + + | Performing | Address | City/State/Zipcode | Phone Number | | Organization | | | | + + + + + | [facility] | [address] | [place] [address] | | + + + + + [...] +------+-------+ + | MEDICARE | MEDICA | [id number] | | | [address] | | | RE | | | | [place] [address] | | | IP-OP | | | [...] | fel[place] | | | [phone] | [phone] | + +--------+ +--------+ + +"
--- OUTSIDE RECORDS SUMMARY | ~2018-02-26 | XMS | Clinical Summary ---
Demographics + + + | Address | [address] | | | [place] [address] | + + + | Home Phone | | + + + | Preferred Language | Unknown | + + + | Marital Status | | + + + | Taoism Affiliation | Unknown | + + + | Race | Unknown | + + + | Ethnic Group | Unknown | + + + Author + + + | Author | [facility] | | | and [place] | + + + | Organization | [facility] | | | and [...] Team Providers + +------+ + | Care Bath Mix Operator Name | Role | Phone | [...] 03/08/2016 | + + + | H/O sand blaster anticoagulant use - COUMADIN | 03/08/2016 | [...] +--------+ +---------+ | MEDICARE | MEDICA | [id number] | Medica | [phone] | | | RE | | re | [phone] | | | | PART A | | | | | | | AND B | | | | | + +--------+ +--------+ +---------+ | COMBINED INSURANCE | COMBIN | [id number] | Indemn | [phone] | | | ED INS | [...] | [birth year]/ | Home: | [address] [facility] | | RAFAT PERKINS. | al/Fam | | [phone] | [phone] | [address] | | | feliz | | | [phone] | + +--------+ +--------+ + +
--- OUTSIDE RECORDS SUMMARY | ~2018-02-26 | XMS | Encounter Summary ---
Demographics + + + | Address | [address] | | | [place] [address] | + + + | Home Phone | | + + + | Preferred Language | Unknown | + + + | Marital Status | | + + + | Alevism Affiliation | Unknown | + + + | Race | Unknown | + + + | Ethnic Group | Unknown | + + + Author + + + | Author | [facility] | + + + | Organization | [facility] | + + + | Address | Unknown | + + + | Phone | Unavailable | + + + Support + + +---------+ + | Name | Relationship | Address | Phone | + + +---------+ + | Stephy Palomo | ECON | Unknown | | + + +---------+ + Care Team Providers + +------+ + | Care Ethylbenzene Converter Operator Name | Role | Phone | + +------+ + | Rodrigo Zavaleta DO | PCP | | + +------+ + Encounter Details +--------+ + + + + | Date | Type | Department | Care Team | Description | +--------+ + + + + | 01/23/ | Ancillary | [facility] | Vinicio Beyer DO | Aortic valve | | 2017 | Procedure | ECHO | [address] | stenosis, etiology | | | | | [place] [address] | of cardiac valve | | | | | [phone] | disease unspecified; | | | | [...] hypertrophy. | | | 4. There is qrrjfdal-bz-qtzbmz aortic stenosis present. 5. | | | Peak/mean gradient across the aortic valve is 38.20mmHg/20.00mmHg. | | + + + + + + | Narrative | Performed At | + + + | Patient Name: David Palomo Date of : 1930 | [facility] | | Performing Physician: Triston | RADIOLOGY [...] | | | hypertrophy. 4. There is pscoobuq-hh-ynpurg aortic stenosis present. | | | 5. [...] | | regurgitation. Aortic Valve: There is wzkyxefn-hz-wwtcqp aortic | | | stenosis present. Aortic [...] 1.13 m/s MV Dec | | | [place]: 2.22 m/s2 MV DecT: 253.08 ms MV E Ted: 0.56 m/s | | | MV E/A Ratio: 0.49 MV PHT: 73.39 ms MVA By PHT: 2.99 | | | cm2 Septal e': 0.03 m/s Septal E/e': 15.03 Lateral e': | | | 0.06 m/s Lateral E/e': 8.93 TR maxP.64 mmHg TR | | | Vmax: 2.03 m/s Carpenter Supervisor Wooden Ship: MARLON Authenticated by: Triston | | | Luis Daniel Report Date/Time: 01-23-2018 17:41:56 | | + + + + + | Procedure Note | + + | Satish Bartlett Results In - 01/23/2018 5:42 PM PDT Patient Name: Larry Palomo of | | : 1930ccession: [id number] Physician: Triston | | Korimerla INDICATIONS----- | | ------AORTIC STENOSIS, SYNCOPECONCLUSIONS 1. This was a technically difficult | | study with suboptimal views.2. Left ventricular systolic function is hyperdynamic with | | an estimated EF of >70%.3. 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 | | There is dquslwtl-li-bggprt aortic stenosis present.5. Peak/mean gradient across the [...] regurgitation. Aortic Valve: | | There is hquomwaz-sn-sjhiiw aortic stenosis present. Aortic Valve: Peak/mean gradient [...] cmLVIDd: 4.05 cmLVPWd: 1.40 cmLVOT Area: 3.91 km3OHQC Diam: 2.23 cm%FS: 49.19 | | %EF(Teich): 81.02 %ESV(Teich): 13.75 mlIVSs: 1.55 cmLVIDs: 2.06 cmLVPWs: 1.66 | | cmSV(Teich): 58.73 mlRVIDd: 2.83 cmLAESV(A-L): 69.45 mlLAESV Index (A-L): 34.38 | | ml/m2LAAs A2C: 20.01 ko5HVXHH A-L A2C: 64.80 mlLALs A2C: 5.24 cmLAAs A4C: 20.14 | | zn3BBKDB A-L A4C: 69.90 mlLALs A4C: 4.92 cmRAAs: 16.31 kz2JOPZY A-L: 60.68 | | mlRAESV MOD: 57.02 mlRALs: 3.72 cmTAPSE: 1.72 cmAV maxP.20 mmHgAV meanPG: | | 20.00 mmHgAV Vmax: 3.09 m/Lizbeth Vmean: 2.09 m/Lizbeth VTI: 56.19 cmAVA Vmax: 1.16 | | cm2AVA (VTI): 1.28 ca2IIIL (Vmax): 0.00 cm2/m2AVAI (VTI): 0.00 cm2/m2LVOT maxPG: | | 3.40 mmHgLVOT meanP.05 mmHgLVSI Dopp: 35.64 ml/m2LVSV Dopp: 72.01 mlLVOT | | Vmax: 0.92 m/sLVOT Vmean: 0.68 m/sLVOT VTI: 18.38 cmMV A Ted: 1.13 m/sMV Dec | | [place]: 2.22 m/s2MV DecT: 253.08 msMV E Ted: 0.56 m/sMV E/A Ratio: 0.49 MV PHT: | | 73.39 msMVA By PHT: 2.99 nw2Bdgbez e': 0.03 m/sSeptal E/e': 15.03 Lateral e': [...] | concentric left ventricular hypertrophy.4. There is elqfuvzt-im-bzbsig aortic stenosis | | present.5. Peak/mean gradient [...] A Ted: 1.13 m/s | |MV Dec [place]: 2.22 m/s2 | |MV DecT: 253.08 ms | |MV E Ted: 0.56 m/s | |MV E/A Ratio: 0.49 | |MV PHT: 73.39 ms | |MVA By PHT: 2.99 cm2 | |Septal e': 0.03 m/s | |Septal E/e': 15.03 | |Lateral e': 0.06 m/s | |Lateral E/e': 8.93 | |TR maxP.64 mmHg | |TR Vmax: 2.03 m/s | | | |Carpenter Supervisor Wooden Ship: DBS | |Authenticated by: Triston Cary | |Report Date/Time: 01-23-2018 17:41:56 | | | |IMPRESSION: | |1. This was a technically difficult study with suboptimal views. | |2. Left ventricular systolic function is hyperdynamic with an estimated EF of >70%. | |3. 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 | |4. There is rkygzfzc-fe-udyxwr aortic stenosis present. | |5. Peak/mean gradient across the aortic valve is 38.20mmHg/20.00mmHg. | + + + + + + + | Performing | Address | City/State/Zipcode | Phone Number | | Organization | | | | + + + + + | [facility] | [address] | [place] [address] | | + + + + + in this encounter Visit Diagnoses + + | Diagnosis | + + | Aortic valve stenosis, etiology of cardiac valve disease unspecified | + + | Syncope, unspecified syncope type | + +"
[~2018-02-26 21:25] MED LIST changes: +FLEET ENEMA133 ML PR; +GLIPIZIDE ER2.5 MG PO; +GLUCAGON EMERGEN1 MG INJ; +MEGESTROL400 MG/10 PO; +NORVASC2.5 MG PO
--- OUTSIDE RECORDS SUMMARY | 2018-02-26 21:30 | XMS ---
PreManage Notification: FRANK ORTEZ Security Statistical Reporting Analyst Events No recent Security Events currently on file CRITERIA MET - POL CARE PROVIDERS DR RODRIGO BERTRAND Primary Care Current PHONE: [phone] [facility] Case or Helicopter Officer 02/02/2017-Current HEALTH PHONE: [phone] Rodrigo Bertrand Current PHONE: Unknown Maxi has no Care Guidelines for this patient. E.DMayra VISIT COUNT (12 MO.) [address] [facility] [place] TOTAL 4 NOTE: Visits indicate total known visits. ED/UCC VISIT TRACKING (12 MO.) 02/26/2018 21:25 [facility] [place] TYPE: Emergency COMPLAINT: - ALTERED MENTAL STATUS 01/23/2018 01:42 [facility] [place] TYPE: Emergency COMPLAINT: - ALTERED MENTAL STATUS 12/31/2017 18:22 [facility] [place] TYPE: Emergency COMPLAINT: - POSS UTI 06/08/2017 15:14 [facility] [place] TYPE: Emergency COMPLAINT: - POSS UTI INPATIENT VISIT TRACKING (12 MO.) No inpatient visits to display in this time frame [id number]
[2018-02-27] MEDS ORDERED: KEFLEX500 MG PO (01:15)
== END 2018-02-27 01:40 ==
LOC: ED 21:25
DX: N39.0 Urinary tract infection, site not specified (principal); I12.9 Hypertensive chronic kidney disease with stage 1 through stage 4 chronic kidney disease, or unspecified chronic kidney disease; N18.9 Chronic kidney disease, unspecified; E11.22 Type 2 diabetes mellitus with diabetic chronic kidney disease; Z79.899 Other long term (current) drug therapy; Z79.01 Long term (current) use of anticoagulants; Z79.51 Long term (current) use of inhaled steroids
CPT/HCPCS: 80053; 81001; 83605; 84484; 85025; 85610; 87077; 87088; 87186; 96361; 96374; 99285; J0696; J7030

== ENCOUNTER 2018-03-02 00:37 | Emergency (ER) | payer MEDICARE, OTHER ==
[~2018-03-02] VITALS: Ht 190.5 cm; Wt 80.4 kg
--- OUTSIDE RECORDS SUMMARY | ~2018-03-02 | XMS | Clinical Summary ---
Demographics + + + | Address | [address] | | | [place] [address] | + + + | Home Phone | | + + + | Preferred Language | Unknown | + + + | Marital Status | Single | + + + | Alevism Affiliation | Unknown | + + + | Race | Unknown | + + + | Ethnic Group | Other Race | + + + Author + + + | Author | [facility] | + + + | Organization | [facility] | + + + | Address | Unknown | + + + | Phone | Unavailable | + + + Care Team Providers + +------+ + | Care Bank Teller Name | Role | Phone | + +------+ + | No Pcp Per Patient | PP | Unavailable | + +------+ + Source Comments JOSÉ LUIS [facility] and [facility] InPatient.Formerly [facility], [facility] & [facility] Allergies Not on File Current Medications + [...] | + + + | Peripheral neuropathy | 07/18/2013 | + + + Social [...] | + + + + + | Pneumococcal (Adult) | | | | | (1 of 2 - PCV13) | 7 | | | + + + + + | INFLUENZA VACCINE | | | | | (FLU SHOT) | 8 | | | + + + + + Results Not on filefrom Last 3 Months Insurance + +--------+ +--------+ + + | Payer | Benefi | Subscriber | Type | Phone | Address | | | t Plan | ID | | | | | | / | | | | | | | Group | | | | | + +--------+ +--------+ + + | MEDICARE | MEDICA | xxxxxxxxxx | Medica | [phone]- | [address] | | | RE A & | | re | [phone] | [place] [address] | | | B | | | | | + +--------+ +--------+ + + | COMMERCIAL | INDIVI | [phone] | Indemn | | | | INDIVIDUAL | DUAL | | ity | | | | | COMMER | | | | | | | CIAL | | | | | + +--------+ +--------+ + + | COMMERCIAL GROUP | COMMER | xxxxxxxxx | Indemn | | | | | CIAL | | ity | | | | | GROUP | | | | | + +--------+ +--------+ + + + +--------+ +--------+ + + | Guarantor Name | Accoun | Relation to | Date | Phone | Billing Address | | | t Type | Patient | of | | | | | | | | | | + +--------+ +--------+ + + | FRANK ORTEZ | Person | Self | [birth year] Home: | [address] | | | al/Fam | | 1930 | [phone] | [address] [place] | | | [place] | | | [phone] | [phone] | + +--------+ +--------+ + +
--- OUTSIDE RECORDS SUMMARY | ~2018-03-02 | XMS | Clinical Summary ---
Demographics + + + | Address | [address] | | | [place] [address] | + + + | Home Phone | | + + + | Preferred Language | Unknown | + + + | Marital Status | Single | + + + | Sabianism Affiliation | Unknown | + + + | Race | Unknown | + + + | Ethnic Group | Other Race | + + + Author + + + | Author | [facility] | + + + | Organization | [facility] | + + + | Address | Unknown | + + + | Phone | Unavailable | + + + Care Team Providers + +------+ + | Care Ordnance Technician Name | Role | Phone | + +------+ + | No Pcp Per Patient | PP | Unavailable | + +------+ + Source Comments JOSÉ LUIS [facility] InPatient.[facility] & [facility] Allergies Not on File Current Medications + [...] | re | [phone] | [place] [address] | | | B | | | [...] | fel[place] | | | [address]75 | [phone] | + +--------+ +--------+ + +
--- OUTSIDE RECORDS SUMMARY | ~2018-03-02 | XMS | Clinical Summary ---
Demographics + + + | Address | [address] | | | [place] [address] | + + + | Home Phone | | + + + | Preferred Language | Unknown | + + + | Marital Status | | + + + | Sabianist Affiliation | Unknown | + + + | Race | Unknown | + + + | Ethnic Group | Unknown | + + + Author + + + | Author | [facility] | | | and Kashifana | + + + | Organization | [facility] | | | [...] Team Providers + +------+ + | Care Gluing Machine Operator Electronic Name | Role | Phone | + [...] | | | | | stage III (moderate) | | | | | | | | (HCC), Essential | | | | | | | | hypertension | | | | | | | + + + +---------+------+------+-------+ | calcitRIOL | Take 1 capsule by | 90 | 3 | 12/3 | | Activ | | (ROCALTROL) 0.5 MCG | mouth Three times a | capsule | | 0/20 | | e | | capsuleIndications: | . | | | 15 | | | [...] | | | | | stage III (moderate) | | | | | | | | (HCC), Essential | | | | | | [...] | (KASI-FIT NATURA | | | | 20 | | e | | CLOSED-END) POUCH [...] | | | | | | | (moderate) (HCC), | | | | | | | [...] 03/08/2016 | + + + | H/O USP anticoagulant use - COUMADIN | 03/08/2016 | [...] | Chronic kidney disease, stage III (moderate) ([facility]) | 05/27/2014 | + + + | Chronic kidney disease, stage IV (severe) ([facility]) | 04/20/2014 | + + + | [...] + + | Pulse | 80 | 11/14/20163 PDT | + + + + | [...] +--------+ +---------+ | MEDICARE | MEDICA | [id number] | Medica | [phone] | | | | RE | | re | [phone] | | | | PART A | | | | | | | AND B | | | | | + +--------+ +--------+ +---------+ | COMBINED INSURANCE | COMBIN | [id number] | Indemn | [phone] | | | ED INS | [...] | [birth year] | Home: | [address] [facility] | | [place] | al/Fam | | 1930 | [phone] | [address] [place] | | | [place] | | | [phone] | [phone] | + +--------+ +--------+ + +
--- OUTSIDE RECORDS SUMMARY | ~2018-03-02 | XMS | Encounter Summary ---
Demographics + + + | Address | [address] | | | [place] [address] | + + + | Home Phone | | + + + | Preferred Language | Unknown | + + + | Marital Status | | + + + | Mormon Affiliation | Unknown | + + + | Race | Unknown | + + + | Ethnic Group | Unknown | + + + Author + + + | Author | [facility] | + + + | Organization | [facility] | + + + | Address | Unknown | + + + | Phone | Unavailable | + + + Support + + +---------+ + | Name | Relationship | Address | Phone | + + +---------+ + | Stephy Palomo | ECON | Unknown | | + + +---------+ + Care Team Providers + +------+ + | Care Adaptive Physical Educator Name | Role | Phone | + +------+ + | Rodrigo Zavaleta DO | PCP | | + +------+ + Encounter Details +--------+ + + + + | Date | Type | Department | Care Team | Description | +--------+ + + + + | 01/23/ | Ancillary | [facility] | Vinicio Beyer DO | Aortic valve | | 2017 | Procedure | ECHO | [address] | stenosis, etiology | | | | | [place] [address] | of cardiac valve | | | | | [phone] | disease unspecified; | | | | [...] hypertrophy. | | | 4. There is sliqvnad-do-gskvrq aortic stenosis present. 5. | | | Peak/mean gradient across the aortic valve is 38.20mmHg/20.00mmHg. | | + + + + + + | Narrative | Performed At | + + + | Patient Name: David Palomo Date of : 1930 | [facility] | | Performing Physician: Triston | [...] | | | hypertrophy. 4. There is ashhzyfh-bm-jpsyfv aortic stenosis present. | | | 5. [...] | | regurgitation. Aortic Valve: There is ghguzolw-px-zmhola aortic | | | stenosis present. Aortic [...] 1.13 m/s MV Dec | | | [place]: 2.22 m/s2 MV DecT: 253.08 ms MV E Ted: 0.56 m/s | | | MV E/A Ratio: 0.49 MV PHT: 73.39 ms MVA By PHT: 2.99 | | | cm2 Septal e': 0.03 m/s Septal E/e': 15.03 Lateral e': | | | 0.06 m/s Lateral E/e': 8.93 TR maxP.64 mmHg TR | | | Vmax: 2.03 m/s Pals Nurse: MARLON Authenticated by: Triston | | | Luis Daniel Report Date/Time: 01-23-2018 17:41:56 | | + + + + + | Procedure Note | + + | Satish Bartlett Results In - 01/23/2018 5:42 PM PDT Patient Name: Larry Palomo of | | : 1930ccession: [id number] Physician: Triston | | Korimerla INDICATIONS----- | | ------AORTIC STENOSIS, SYNCOPECONCLUSIONS 1. This was a technically difficult | | study with suboptimal views.2. Left ventricular systolic function is hyperdynamic with | | an estimated EF of >70%.3. 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 | | There is heayavsy-cr-drzocf aortic stenosis present.5. Peak/mean gradient across the [...] regurgitation. Aortic Valve: | | There is jlufwsda-yh-eqwxrj aortic stenosis present. Aortic Valve: Peak/mean gradient [...] cmLVIDd: 4.05 cmLVPWd: 1.40 cmLVOT Area: 3.91 hs4ZEQR Diam: 2.23 cm%FS: 49.19 | | %EF(Teich): 81.02 %ESV(Teich): 13.75 mlIVSs: 1.55 cmLVIDs: 2.06 cmLVPWs: 1.66 | | cmSV(Teich): 58.73 mlRVIDd: 2.83 cmLAESV(A-L): 69.45 mlLAESV Index (A-L): 34.38 | | ml/m2LAAs A2C: 20.01 zw9LUCZO A-L A2C: 64.80 mlLALs A2C: 5.24 cmLAAs A4C: 20.14 | | wy4RKIUP A-L A4C: 69.90 mlLALs A4C: 4.92 cmRAAs: 16.31 ev8VKCYS A-L: 60.68 | | mlRAESV MOD: 57.02 mlRALs: 3.72 cmTAPSE: 1.72 cmAV maxP.20 mmHgAV meanPG: | | 20.00 mmHgAV Vmax: 3.09 m/Lizbeth Vmean: 2.09 m/Lizbeth VTI: 56.19 cmAVA Vmax: 1.16 | | cm2AVA (VTI): 1.28 xp4VHSS (Vmax): 0.00 cm2/m2AVAI (VTI): 0.00 cm2/m2LVOT maxPG: | | 3.40 mmHgLVOT meanP.05 mmHgLVSI Dopp: 35.64 ml/m2LVSV Dopp: 72.01 mlLVOT | | Vmax: 0.92 m/sLVOT Vmean: 0.68 m/sLVOT VTI: 18.38 cmMV A Ted: 1.13 m/sMV Dec | | [place]: 2.22 m/s2MV DecT: 253.08 msMV E Ted: 0.56 m/sMV E/A Ratio: 0.49 MV PHT: | | 73.39 msMVA By PHT: 2.99 oh1Vhfqwf e': 0.03 m/sSeptal E/e': 15.03 Lateral e': [...] | concentric left ventricular hypertrophy.4. There is dogbfmdf-it-jdhsxh aortic stenosis | | present.5. Peak/mean gradient [...] A Ted: 1.13 m/s | |MV Dec [place]: 2.22 m/s2 | |MV DecT: 253.08 ms | |MV E Ted: 0.56 m/s | |MV E/A Ratio: 0.49 | |MV PHT: 73.39 ms | |MVA By PHT: 2.99 cm2 | |Septal e': 0.03 m/s | |Septal E/e': 15.03 | |Lateral e': 0.06 m/s | |Lateral E/e': 8.93 | |TR maxP.64 mmHg | |TR Vmax: 2.03 m/s | | | |Pals Nurse: DBS | |Authenticated by: Triston Cary | |Report Date/Time: 01-23-2018 17:41:56 | | | |IMPRESSION: | |1. This was a technically difficult study with suboptimal views. | |2. Left ventricular systolic function is hyperdynamic with an estimated EF of >70%. | |3. 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 | |4. There is lltfvpdf-ms-njsthj aortic stenosis present. | |5. Peak/mean gradient across the aortic valve is 38.20mmHg/20.00mmHg. | + + + + + + + | Performing | Address | City/State/Zipcode | Phone Number | | Organization | | | | + + + + + | [facility] | [address] | [place] [address] | | + + + + + in this encounter Visit Diagnoses + + | Diagnosis | + + | Aortic valve stenosis, etiology of cardiac valve disease unspecified | + + | Syncope, unspecified syncope type | + +"
--- OUTSIDE RECORDS SUMMARY | ~2018-03-02 | XMS | Clinical Summary ---
Demographics + + + | Address | [address] | | | [place] [address] | + + + | Home Phone | | + + + | Preferred Language | Unknown | + + + | Marital Status | | + + + | Caodaism Affiliation | Unknown | + + + | Race | Unknown | + + + | Ethnic Group | Unknown | + + + Author + + + | Author | [facility] | | | and Kashifana | + + + | Organization | [facility] | | | [...] Team Providers + +------+ + | Care Operations Vice President Name | Role | Phone | + [...] 03/08/2016 | + + + | H/O MCFP anticoagulant use - COUMADIN | 03/08/2016 | + + + | Type 2 diabetes mellitus - ORAL Control | 12/15/2015 | + + + | Secondary hyperparathyroidism of renal origin (HCC) | 06/02/2015 | + + + | Obstructive chronic bronchitis (HCC) | 09/30/2014 | + + + | Aortic stenosis, mild | 09/26/2014 | + + + | Former Jsoe Alfredo Ibarra | 07/10/2014 | + + [...] | Chronic kidney disease, stage III (moderate) ([facility]) | 05/27/2014 | + + + | Chronic kidney disease, stage IV (severe) ([facility]) | 04/20/2014 | + + + | [...] +--------+ +---------+ | MEDICARE | MEDICA | [id number] | Medica | [phone] | | | | RE | | re | [phone] | | | | PART A | | | | | | | AND B | | | | | + +--------+ +--------+ +---------+ | COMBINED INSURANCE | COMBIN | [id number] | Indemn | [phone] | | | ED INS | [...] | [birth year] | Home: | [address] [facility] | | [place] | al/Fam | | 1930 | [phone] | [address] [place] | | | feliz | | | [phone] | [phone] | + +--------+ +--------+ + +
--- OUTSIDE RECORDS SUMMARY | ~2018-03-02 | XMS | Clinical Summary ---
Demographics + + + | Address | [address] | | | [place] [address] | + + + | Home Phone | | + + + | Preferred Language | Unknown | + + + | Marital Status | | + + + | Adventism Affiliation | Unknown | + + + | Race | Unknown | + + + | Ethnic Group | Unknown | + + + Author + + + | Author | [facility] | + + + | Organization | [facility] | + + + | Address | Unknown | + + + | Phone | Unavailable | + + + Support + + +---------+ + | Name | Relationship | Address | Phone | + + +---------+ + | Stephy Palomo | ECON | Unknown | | + + +---------+ + Care Team Providers + +------+ + | Care Billboard Erector Helper Name | Role | Phone | + [...] hypertrophy. | | | 4. There is rhrfbgnw-an-nvwufs aortic stenosis present. 5. | | | [...] | | | hypertrophy. 4. There is bugryhsz-nf-dqioit aortic stenosis present. | | | 5. [...] | | regurgitation. Aortic Valve: There is dsgzjxgs-rf-hpqlsm aortic | | | stenosis present. Aortic [...] 1.13 m/s MV Dec | | | [place]: 2.22 m/s2 MV DecT: 253.08 ms MV E Ted: 0.56 m/s | | | MV E/A Ratio: 0.49 MV PHT: 73.39 ms MVA By PHT: 2.99 | | | cm2 Septal e': 0.03 m/s Septal E/e': 15.03 Lateral e': | | | 0.06 m/s Lateral E/e': 8.93 TR maxP.64 mmHg TR | | | Vmax: 2.03 m/s Medical Care Evaluation Specialist: MARLON Authenticated by: Triston | | | Luis Daniel Report Date/Time: 01-23-2018 17:41:56 | | + + + + + | Procedure Note | + + | Dhruv, Rad Results In - 01/23/2018 5:42 PM PDT Patient Name: Larry Palomo of | | : 1930ccession: [id number] Physician: Triston | | Korimerla INDICATIONS----- | | ------AORTIC STENOSIS, SYNCOPECONCLUSIONS 1. This was a technically difficult | | study with suboptimal views.2. Left ventricular systolic function is hyperdynamic with | | an estimated EF of >70%.3. 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 | | There is txaftzvv-xs-xcbvre aortic stenosis present.5. Peak/mean gradient across the [...] regurgitation. Aortic Valve: | | There is vxsmwrbg-nj-ruqrgp aortic stenosis present. Aortic Valve: Peak/mean gradient [...] cmLVIDd: 4.05 cmLVPWd: 1.40 cmLVOT Area: 3.91 mj8KNOP Diam: 2.23 cm%FS: 49.19 | | %EF(Teich): 81.02 %ESV(Teich): 13.75 mlIVSs: 1.55 cmLVIDs: 2.06 cmLVPWs: 1.66 | | cmSV(Teich): 58.73 mlRVIDd: 2.83 cmLAESV(A-L): 69.45 mlLAESV Index (A-L): 34.38 | | ml/m2LAAs A2C: 20.01 lw6BPXJZ A-L A2C: 64.80 mlLALs A2C: 5.24 cmLAAs A4C: 20.14 | | dw0XMUFE A-L A4C: 69.90 mlLALs A4C: 4.92 cmRAAs: 16.31 cg3UOWIC A-L: 60.68 | | mlRAESV MOD: 57.02 mlRALs: 3.72 cmTAPSE: 1.72 cmAV maxP.20 mmHgAV meanPG: | | 20.00 mmHgAV Vmax: 3.09 m/Lizbeth Vmean: 2.09 m/Lizbeth VTI: 56.19 cmAVA Vmax: 1.16 | | cm2AVA (VTI): 1.28 za2OHQA (Vmax): 0.00 cm2/m2AVAI (VTI): 0.00 cm2/m2LVOT maxPG: | | 3.40 mmHgLVOT meanP.05 mmHgLVSI Dopp: 35.64 ml/m2LVSV Dopp: 72.01 mlLVOT | | Vmax: 0.92 m/sLVOT Vmean: 0.68 m/sLVOT VTI: 18.38 cmMV A Ted: 1.13 m/sMV Dec | | [place]: 2.22 m/s2MV DecT: 253.08 msMV E Ted: 0.56 m/sMV E/A Ratio: 0.49 MV PHT: | | 73.39 msMVA By PHT: 2.99 qb9Qjocpv e': 0.03 m/sSeptal E/e': 15.03 Lateral e': [...] | concentric left ventricular hypertrophy.4. There is tolbgbpi-rf-mfwpdz aortic stenosis | | present.5. Peak/mean gradient [...] A Ted: 1.13 m/s | |MV Dec [place]: 2.22 m/s2 | |MV DecT: 253.08 ms | |MV E Ted: 0.56 m/s | |MV E/A Ratio: 0.49 | |MV PHT: 73.39 ms | |MVA By PHT: 2.99 cm2 | |Septal e': 0.03 m/s | |Septal E/e': 15.03 | |Lateral e': 0.06 m/s | |Lateral E/e': 8.93 | |TR maxP.64 mmHg | |TR Vmax: 2.03 m/s | | | |Medical Care Evaluation Specialist: DBS | |Authenticated by: Triston Cary | |Report Date/Time: 01-23-2018 17:41:56 | | | |IMPRESSION: | |1. This was a technically difficult study with suboptimal views. | |2. Left ventricular systolic function is hyperdynamic with an estimated EF of >70%. | |3. 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 | |4. There is wnnrmtlw-qi-qyhflu aortic stenosis present. | |5. Peak/mean gradient across the aortic valve is 38.20mmHg/20.00mmHg. | + + + + + + + | Performing | Address | City/State/Zipcode | Phone Number | | Organization | | | | + + + + + | [facility] | [address] | [place] [address] | | + + + + + [...] +------+-------+ + | MEDICARE | MEDICA | [id number] | | | [address] | | | RE | | | | [place] [phone] | | | IP-OP | | | [...] | [place] | | | [address] | [address] | + +--------+ +--------+ + +"
--- OUTSIDE RECORDS SUMMARY | ~2018-03-02 | XMS | Encounter Summary ---
Demographics + + + | Address | [address] [facility] [address] | | | [place] [address] | + + + | Home Phone | | + + + | Preferred Language | Unknown | + + + | Marital Status | | + + + | Yazdanism Affiliation | Unknown | + + + | Race | Unknown | + + + | Ethnic Group | Unknown | + + + Author + + + | Author | [facility] | | | and [place] | + + + | Organization | [facility] | | [...] Team Providers + +------+ + | Care Founder & Ceo Name | Role | Phone | + [...] | | | [facility] | [place], [place] | | | | [address] [place], | [address] | | | | | [place] [address] | [phone] | | | | | [phone] | | | +--------+--------+ + + + [...]
--- OUTSIDE RECORDS SUMMARY | ~2018-03-02 | XMS | Encounter Summary ---
Demographics + + + | Address | [address] | | | [place] [address] | + + + | Home Phone [...] + + + | Author | [facility] | + + + | Organization | [facility] | + + + | Address | Unknown | + + + | Phone | Unavailable | + + + Support + + +---------+ + | Name | Relationship | Address | Phone | + + +---------+ + | Stephy Palomo | ECON | Unknown | | + + +---------+ + Care Team Providers + +------+ + | Care Mud Car Worker Name | Role | Phone | + +------+ + | Rodrigo Zavaleta DO | PCP | | + +------+ + Encounter Details +--------+ + + + + | Date | Type | Department | Care Team | Description | +--------+ + + + + | 01/23/ | Ancillary | [facility] | Vinicio Beyer DO | Aortic valve | | 2018 | Orders | ECHO | [address] | stenosis, etiology | | | | | [place] [address] | of cardiac valve | | | | | [phone] | disease unspecified; | | | | [...] hypertrophy. | | | 4. There is wowgakol-me-lzmydc aortic stenosis present. 5. | | | [...] | | | hypertrophy. 4. There is pqydklrv-uf-mpmwbe aortic stenosis present. | | | 5. [...] | | regurgitation. Aortic Valve: There is swiabdla-oh-xnzrji aortic | | | stenosis present. Aortic [...] 1.13 m/s MV Dec | | | Mckinley: 2.22 m/s2 MV DecT: 253.08 ms MV E Ted: 0.56 m/s | | | MV E/A Ratio: 0.49 MV PHT: 73.39 ms MVA By PHT: 2.99 | | | cm2 Septal e': 0.03 m/s Septal E/e': 15.03 Lateral e': | | | 0.06 m/s Lateral E/e': 8.93 TR maxP.64 mmHg TR | | | Vmax: 2.03 m/s Manager Spring: MARLON Authenticated by: Triston | | | Luis Daniel Report Date/Time: 01-23-2018 17:41:56 | | + + + + + | Procedure Note | + + | Dhruv, Rad Results In - 01/23/2018 5:42 PM PDT Patient Name: Spencer Palomo | | : 1932ccession: [id number] Physician: Triston | | Korimerla INDICATIONS----- | | ------AORTIC STENOSIS, SYNCOPECONCLUSIONS 1. This was a technically difficult | | study with suboptimal views.2. Left ventricular systolic function is hyperdynamic with | | an estimated EF of >70%.3. 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 | | There is brsmzpwy-lc-nylznq aortic stenosis present.5. Peak/mean gradient across the [...] regurgitation. Aortic Valve: | | There is pxmfxrqq-wo-fhqaib aortic stenosis present. Aortic Valve: Peak/mean gradient [...] cmLVIDd: 4.05 cmLVPWd: 1.40 cmLVOT Area: 3.91 fr3WCLP Diam: 2.23 cm%FS: 49.19 | | %EF(Teich): 81.02 %ESV(Teich): 13.75 mlIVSs: 1.55 cmLVIDs: 2.06 cmLVPWs: 1.66 | | cmSV(Teich): 58.73 mlRVIDd: 2.83 cmLAESV(A-L): 69.45 mlLAESV Index (A-L): 34.38 | | ml/m2LAAs A2C: 20.01 [id number] A-L A2C: 64.80 mlLALs A2C: 5.24 cmLAAs A4C: 20.14 | | hi4DXRTU A-L A4C: 69.90 mlLALs A4C: 4.92 cmRAAs: 16.31 [id number] A-L: 60.68 | | mlRAESV MOD: 57.02 mlRALs: 3.72 cmTAPSE: 1.72 cmAV maxP.20 mmHgAV meanPG: | | 20.00 mmHgAV Vmax: 3.09 m/Lizbeth Vmean: 2.09 m/Lizbeth VTI: 56.19 cmAVA Vmax: 1.16 | | cm2AVA (VTI): 1.28 qp7DFXQ (Vmax): 0.00 cm2/m2AVAI (VTI): 0.00 cm2/m2LVOT maxPG: | | 3.40 mmHgLVOT meanP.05 mmHgLVSI Dopp: 35.64 ml/m2LVSV Dopp: 72.01 mlLVOT | | Vmax: 0.92 m/sLVOT Vmean: 0.68 m/sLVOT VTI: 18.38 cmMV A Ted: 1.13 m/sMV Dec | | Mckinley: 2.22 m/s2MV DecT: 253.08 msMV E Ted: 0.56 m/sMV E/A Ratio: 0.49 MV PHT: | | 73.39 msMVA By PHT: 2.99 qa5Vjrfga e': 0.03 m/sSeptal E/e': 15.03 Lateral e': [...] | concentric left ventricular hypertrophy.4. There is akdajfeq-zl-wmmmnv aortic stenosis | | present.5. Peak/mean gradient [...] A Ted: 1.13 m/s | |MV Dec Mckinley: 2.22 m/s2 | |MV DecT: 253.08 ms | |MV E Ted: 0.56 m/s | |MV E/A Ratio: 0.49 | |MV PHT: 73.39 ms | |MVA By PHT: 2.99 cm2 | |Septal e': 0.03 m/s | |Septal E/e': 15.03 | |Lateral e': 0.06 m/s | |Lateral E/e': 8.93 | |TR maxP.64 mmHg | |TR Vmax: 2.03 m/s | | | |Manager Spring: DBS | |Authenticated by: Triston Cary | |Report Date/Time: 01-23-2018 17:41:56 | | | |IMPRESSION: | |1. This was a technically difficult study with suboptimal views. | |2. Left ventricular systolic function is hyperdynamic with an estimated EF of >70%. | |3. 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 | |4. There is bilsuytt-ad-zlgers aortic stenosis present. | |5. Peak/mean gradient across the aortic valve is 38.20mmHg/20.00mmHg. | + + + + + + + | Performing | Address | City/State/Zipcode | Phone Number | | Organization | | | | + + + + + | [facility] | [address] | [place] [address] | | + + + + + in this encounter Visit Diagnoses + + | Diagnosis | + + | Aortic valve stenosis, etiology of cardiac valve disease unspecified | + + | Syncope, unspecified syncope type | + +"
--- OUTSIDE RECORDS SUMMARY | ~2018-03-02 | XMS | Encounter Summary ---
Demographics + + + | Address | [address] [facility] [address] | | | [place] [address] | + + + | Home Phone | | + + + | Preferred Language | Unknown | + + + | Marital Status | | + + + | Islam Affiliation | Unknown | + + + | Race | Unknown | + + + | Ethnic Group | Unknown | + + + Author + + + | Author | [facility] | | | and Kashifana | + + + | Organization | [facility] | | [...] Team Providers + +------+ + | Care Asphalt Paving Machine Operator Name | Role | Phone [...] | | | [facility] | [place], [place] | | | | [address] [place], | [address] | | | | | [place] [address] | [phone] | | | | | [phone] | | | +--------+--------+ + + + [...]
--- OUTSIDE RECORDS SUMMARY | 2018-03-02 00:42 | XMS ---
PreManage Notification: FRANK ORTEZ Security Camera Supervisor Events No recent Security Events currently on file CRITERIA MET - [facility]EMAR[facility] - 2 Visits in 30 Days CARE PROVIDERS MONICA AVINA Family Medicine: Sports Medicine 02/27/2018-Current PHONE: [phone] DR RODRIGO BERTRAND Primary Care Current PHONE: [phone] [facility] Case or Manager Environmental Health And Safety 02/02/2017-Current HEALTH PHONE: [phone] Rodrigo Bertrand Current PHONE: Unknown Maxi has no Care Guidelines for this patient. Yu VISIT COUNT (12 MO.) 5 PETRONA Valdez TOTAL 5 NOTE: Visits indicate total known visits. ED/UCC VISIT TRACKING (12 MO.) 03/02/2018 00:38 [place] TYPE: Emergency COMPLAINT: - FALL 02/26/2018 21:25 [place] [place] TYPE: Emergency COMPLAINT: - ALTERED MENTAL STATUS 01/23/2018 01:42 [place] [place] TYPE: Emergency COMPLAINT: - ALTERED MENTAL STATUS 12/31/2017 18:22 [place] [place] TYPE: Emergency COMPLAINT: - POSS UTI 06/08/2017 15:14 [place] [place] TYPE: Emergency COMPLAINT: - POSS UTI INPATIENT VISIT TRACKING (12 MO.) No inpatient visits to display in this time frame [email or web address]
== END 2018-03-02 02:13 ==
LOC: ED 00:37
DX: S49.92XA Unspecified injury of left shoulder and upper arm, initial encounter (principal); I12.0 Hypertensive chronic kidney disease with stage 5 chronic kidney disease or end stage renal disease; E11.22 Type 2 diabetes mellitus with diabetic chronic kidney disease; N18.9 Chronic kidney disease, unspecified; Z79.899 Other long term (current) drug therapy; W19.XXXA Unspecified fall, initial encounter
CPT/HCPCS: 73030; 99284